=== PATIENT | female | born 1930 | race Caucasian/White ===

== ENCOUNTER 2019-02-13 14:44 | Inpatient (IN) | payer OTHER, MEDICARE ==
[~2019-02-13] VITALS: Ht 162.6 cm; Wt 80.7 kg
[2019-02-13] MEDS ORDERED: FEE PK DOSING 1 MIN EA MC ONE (14:47)
--- NOTE | 2019-02-13 14:48 | NUR ---
PATIENT [id number] FROM PMD, WITH REPORT OF NEAR SYNCOPAL EPISODE. REPORTED TO BE HYPOTENSIVE FEED MANAGEMENT ADVISOR. BP TAKEN UPON PATIENT ARRIVAL WITH RESULT OF 161/74. PATIENT AWAKE, A/O X 2. NO ACUTE DISTRESS. PATIENT DENIES ANY PAIN OR DISCOMFORT. PATIENT CONNECTED TO MONITOR. FSBS TAKEN WITH RESULT OF 161. WILL CONTINUE TO MONITOR
--- NOTE | 2019-02-13 14:50 | NUR ---
PATIENT NOTED WITH BILATERAL NEPHROSTOMY TUBES, NO BLEEDING NOTED ON BOTH COLLECTING BAGS.
--- NOTE | 2019-02-13 14:59 | NUR ---
DR BARTLETT AT BEDSIDE
--- NOTE | 2019-02-13 15:00 | NUR ---
JEVON SANDOVAL/DIRECTIVE GRAY AT BEDSIDE. VERBALIZED THAT PATIENT HAS A DNR. DR BARTLETT SPOKE WITH PATIENT AND PATIENT VERBALIZED TO STAY DNR. LORI ESCOTO VERBALIZED THAT PAPERWORKS ARE AT DR GREGORY'S OFFICE
[2019-02-13] MEDS ORDERED: DILT-1 PO (15:15)
[2019-02-13] MEDS ORDERED: MULT-447 PO (15:15)
[2019-02-13] MEDS ORDERED: METO25TA20 PO (15:15)
[2019-02-13] MEDS ORDERED: TAMS-12 PO (15:15)
[2019-02-13] MEDS ORDERED: LEVO25TA9 PO (15:15)
[2019-02-13 15:30] LABS: BASOPHILS % (AUTO) 0.5 % (0.0-2.0); HEMATOCRIT 30 % (33-45); HEMOGLOBIN 9.3 g/dL (11.5-14.8); LYMPHOCYTES % (AUTO) 1.5 % (20.0-44.0); MEAN CORPUSCULAR HGB CONC 31 g/dl (31.0-36.0); MEAN CORPUSCULAR VOLUME 79 fL (82-100); MONOCYTES % (AUTO) 3.3 % (2.0-12.0); NEUTROPHILS % (AUTO) 94.7 % (43.0-81.0); PLATELET COUNT (AUTO) 606 /CMM (150-450); RED BLOOD CELL COUNT(AUTO) 3.84 MIL/uL (4.0-5.2)
[2019-02-13] MEDS ORDERED: IV NS 0.9% 500 ML BAG IV ONE (15:30)
--- NOTE | 2019-02-13 15:30 | NUR ---
URINE COLLECTED FROM EACH NEPHROSTOMY BAG AND LABELLED SEPARATELY, SENT TO LAB
[2019-02-13 15:31] LABS: BASOPHILS # (AUTO) 0.4 /CMM (0.0-0.2); LYMPHOCYTES # (AUTO) 1.3 /CMM (0.8-4.8); MONOCYTES # (AUTO) 2.8 /CMM (0.1-1.30)
[2019-02-13 15:32] LABS: WHITE BLOOD COUNT (AUTO) 82.4 K/uL (4.3-11.0)
[2019-02-13 15:54] LABS: CARBON DIOXIDE 21 mmol/L (21-32); CHLORIDE 100 mmol/L (98-107); POTASSIUM 5.3 mmol/L (3.5-5.1); SODIUM SERUM 134 mmol/L (136-145)
[2019-02-13 15:55] LABS: CALCIUM, SERUM 8.3 mg/dL (8.5-10.1); CREATININE 3.5 mg/dL (0.6-1.3); GLUCOSE 169 mg/dL (74-106); UREA NITROGEN, BLOOD 45 mg/dL (7-18)
[2019-02-13 15:58] LABS: BILIRUBIN,DIRECT 0.1 mg/dL (0.0-0.2); BILIRUBIN,TOTAL 0.3 mg/dL (0.2-1.0)
[2019-02-13 15:59] LABS: ALANINE AMINOTRANSFERASE 14 U/L (12-78); ALBUMIN 1.9 g/dL (3.4-5.0); ALKALINE PHOSPHATASE 75 U/L (46-116); ASPARTATE AMINOTRANSFERASE 21 U/L (15-37); TOTAL PROTEIN, SERUM 6.9 g/dL (6.4-8.2)
--- NOTE | 2019-02-13 16:09 | NUR ---
CALLED , TRANSFERRED CALL TO
[2019-02-13 16:14] LABS: APPEARANCE,URINE Slightly Cloudy (CLEAR); BILIRUBIN,URINE Negative (NEGATIVE); BLOOD, URINE Moderate Ery/uL (NEGATIVE); COLOR,URINE Other (YELLOW); KETONES,URINE Negative (NEGATIVE); LEUKOCYTE ESTERASE ,URINE Small (NEGATIVE); NITRITE, URINE Positive (NEGATIVE); PH,URINE 8.5 (5.0-8.0); PROTEIN,URINE >=300 mg/dl (NEGATIVE); UGLUCOSE Negative (NEGATIVE); UROBILINOGEN,URINE 0.2 EU/dL (0.2)
[2019-02-13 16:23] LABS: RBC,URINE 21-50 /HPF (0-2); WBC,URINE TOO NUMEROUS TO COUN /HPF (0-3)
[2019-02-13 16:24] LABS: BACTERIA,URINE 3+ /HPF (None Seen); SQUAMOUS EPITHELIAL CELL,UR Few /HPF (None Seen); TRIPLE PHOSPHATE CRYSTAL,UR Few /HPF (None Seen)
[2019-02-13] MEDS ORDERED: IV NS 0.9% 1,000 ML BAG IV ONE (16:30)
[2019-02-13 16:37] LABS: APPEARANCE,URINE SLIGHTLY CLOUDY (CLEAR); COLOR,URINE YELLOW (YELLOW)
[2019-02-13 16:38] LABS: PH,URINE 8.5 (5.0-8.0); PROTEIN,URINE 2+ mg/dl (NEGATIVE)
[2019-02-13 16:39] LABS: BILIRUBIN,URINE NEGATIVE (NEGATIVE); BLOOD, URINE 1+ Ery/uL (NEGATIVE); KETONES,URINE NEGATIVE (NEGATIVE); LEUKOCYTE ESTERASE ,URINE 3+ (NEGATIVE); NITRITE, URINE NEGATIVE (NEGATIVE); UGLUCOSE NEGATIVE (NEGATIVE); UROBILINOGEN,URINE 0.2 EU/dL (0.2)
--- NOTE | 2019-02-13 16:44 | NUR ---
RECTAL TEMP 100.6. DR BARTLETT MADE AWARE
[2019-02-13 16:46] LABS: BAND % (MANUAL) 5 % (0.0-5.0); MONOCYTES % (MANUAL) 3 % (0-11.0); NEUTROPHILS % (MANUAL) 92 (42-76)
[2019-02-13 16:46] LABS: RBC,URINE 21-50 /HPF (0-2)
[2019-02-13 16:47] LABS: BACTERIA,URINE 4+ /HPF (None Seen); SQUAMOUS EPITHELIAL CELL,UR Few /HPF (None Seen); TRIPLE PHOSPHATE CRYSTAL,UR Few /HPF (None Seen); WBC,URINE 21-50 /HPF (0-3)
[2019-02-13 16:51] LABS: URINE AMORPHOUS PHOSPHATES Few /HPF (None Seen)
[2019-02-13] MEDS ORDERED: LEVOFLOXACIN 750 MG /D5W 150ML 150 ML IV ONE ×2 (16:59→17:00)
[2019-02-13] MEDS ORDERED: AZTREONAM 1 G in IV NS 0.9% 100 ML IV ONE (17:00)
[2019-02-13] MEDS ORDERED: ACETAMINOPHEN ES 500 MG TABLET PO ONE (17:30)
[2019-02-13] MEDS ORDERED: MEROPENEM 1 G in IV NS 0.9% 100 ML IV SCH (17:30)
[2019-02-13] MEDS ORDERED: ACETAMINOPHEN ES 500 MG TABLET ONE (17:38)
--- NOTE | 2019-02-13 17:39 | NUR ---
TELE 119-1
[2019-02-13] MEDS ORDERED: VANCOMYCIN 1 GM in IV D5W 250 ML IV SCH (18:00)
--- NOTE | 2019-02-13 18:00 | NUR ---
RT Pt is awake and alert, pt is refusing ABG. No SOB or respiratory distress noted.
--- NOTE | 2019-02-13 18:15 | NUR ---
REPORT GIVEN TO INGRID CUENCA FOR BOOGIE
[2019-02-13 18:18] LABS: ALANINE AMINOTRANSFERASE 15 U/L (12-78); ALBUMIN 1.9 g/dL (3.4-5.0); ALKALINE PHOSPHATASE 76 U/L (46-116); ASPARTATE AMINOTRANSFERASE 29 U/L (15-37); BILIRUBIN,DIRECT 0.1 mg/dL (0.0-0.2); BILIRUBIN,TOTAL 0.4 mg/dL (0.2-1.0); CALCIUM, SERUM 8.5 mg/dL (8.5-10.1); CARBON DIOXIDE 21 mmol/L (21-32); CHLORIDE 100 mmol/L (98-107); CREATININE 3.6 mg/dL (0.6-1.3); GLUCOSE 164 mg/dL (74-106); POTASSIUM 5.6 mmol/L (3.5-5.1); SODIUM SERUM 134 mmol/L (136-145); TOTAL PROTEIN, SERUM 6.9 g/dL (6.4-8.2); UREA NITROGEN, BLOOD 47 mg/dL (7-18)
--- NOTE | 2019-02-13 18:28 | NUR ---
PATIENT TAKEN TO ROOM 119- BED 1 FOR INGRID RN TO CONTINUE CARE.
--- NOTE | 2019-02-13 18:30 | NUR ---
FILLER SIFTER MACHINEPHARMACY OPERATIONS MANAGER NOTES PT ADMISSION REPORT GIVEN BY BALAJI IN ER.RECEIVED PT FROM ER BY ISHAN WITH FAMILY AT BEDSIDE.ALERT/ORIENTED X4 WITH ANXIETY BEHAVIOR.ON TELE HR IS 80 WITH NSR.ON ROOM AIR,TOLERATING WELL.NO SOB AND ACUTE DISTRESS NOTED.VITAL SIGNS CHECKED AND RECORDED.PT IS CLEAN AND DRY.IV LINE IS ON RIGHT HAND G18 AND LEFT AC G20,SL.SITE IS CLEAN,DRY AND INTACT.NO INFILTRATION NOTED.BED IS IN LOW POSITION AND LOCKED.CALL LIGHT IS WITHIN REACH.WILL CONTINUE TO MONITOR THE PT CLOSELY.
[2019-02-13 18:57] VITALS: BP 74/52
--- NOTE | 2019-02-13 19:05 | NUR ---
RETIREMENT PLAN COUNSELOR CLOSING NOTES PT IS LYING ON BED,ALERT/ORIENTED X4.ON ROOM AIR,TOLERATING WELL.NO SOB AND ACUTE DISTRESS NOTED.RESPIRATION IS EVEN AND NONLABORED.NO SIGNIFICANT CHANGES NOTED IN THE SHIFT.ENDORSED TO PROFESSOR OF THEATER RN FOR BOOGIE.
[2019-02-13] MEDS: IV NS 0.9% 1,000 ML BAG IV ONE ×2 (19:10→19:36)
[2019-02-13] MEDS: IV NS 0.9% 1,000 ML IV PRN (19:16)
[2019-02-13 20:00] VITALS: BP 95/43
--- NOTE | 2019-02-13 20:30 | NUR ---
DYE PADDER OPERATOR NOTE ADMITTED 88 YEARS OLD FEMALE PT FROM ER WITH THE DX OF ACUTE PYELONEPHRITIS WITH SEPSIS. A/O X 3, NO SOB, NO DISTRESS OR DISCOMFORT NOTED. DENIES PAIN. ON TELE SR 69. BILATERAL LOWER EXT WITH MINOR SWELLING. PT IS WITH BILATERAL NEPHROSTOMY TUBES AND DRAINING WELL. SKIN ASSESSMENT DONE, PICTURES TAKEN AND PLACE THEM IN THE CHART. LAC #20G INFUSING NS AT 100 ML/HR, NO S/S OF INFILTRATION NOTED. RT HAND #18 G INTACT AND PATENT. ALL NEEDS ATTENDED. PT IS HYPOTENSIVE. SIDE RAILS UP X 3 AND CALL LIGHT WITHIN REACH. CONTINUE TO MONITOR HER.
[2019-02-13] MEDS ORDERED: MEROPENEM 500 MG in IV NS 0.9% 50 ML IV SCH (21:00)
[2019-02-13 21:08] VITALS: BP 95/43
[2019-02-13] MEDS: MEROPENEM 500 MG in IV NS 0.9% 100 ML IV SCH (21:22)
--- NOTE | 2019-02-13 23:22 | NUR ---
MACHINE TANK OPERATOR NOTE PT IN BED ASLEEP, NO DISTRESS OR DISCOMFORT NOTED. ATB INFUSING WELL, NO S/S OF INFILTRATION NOTED. ENDORSED TO NURSE NAIK FOR CONTINUE TO CARE.
[2019-02-14] VITALS (74 sets, daily range): BP systolic 77–133; BP diastolic 30–80
--- NOTE | 2019-02-14 | NUR ---
TELE-1/EVALUATOR TRANSFER STUDENTS PT BP 68/41 TRIED AGAIN GOT READING 81/39. SPOKE WITH VEE VITAL ORDER TO TRANSFER TO ICU AND START LEVOPHED. WILL CONTINUE TO MONITOR PT.
--- NOTE | 2019-02-14 00:32 | NUR ---
TELE-1/PRODUCTION BOW MAKER PT TRANSFERRED TO ICU ROOM 261 TO START LEVOPHED. REPORT TO ISABELA CUENCA FOR CONT OF CARE.
[2019-02-14] MEDS ORDERED: NOREPINEPHRINE 4 MG/4 ML AMPUL IV ONE (00:39)
[2019-02-14] MEDS: NOREPINEPHRINE 8 MG in IV D5W 500 ML IV PRN ×2 (00:44→14:29)
--- NOTE | 2019-02-14 00:55 | NUR ---
UNIT REACTOR OPERATOR NOTES PATIENT STARTED ON LEVOPHED GTT, INFUSING TO RIGHT HAND #18 GAUGE. VEE DRONE PILOT NOTIFIED REGARDING INITIATION OF PRESSOR SUPPORT, ORDER OBTAINED FOR PICC INSERTION. PATIENT EDUCATED REGARDING PICC LINE INSERTION, ALL QUESTIONS ANSWERED. PATIENT AGREES/CONSENTS TO PICC INSERTION.
--- NOTE | 2019-02-14 01:49 | NUR ---
APPLIANCE ASSEMBLER NOTES - CODE STATUS EXISTING ORDER FOR CODE STATUS IS DNR. CLARIFIED WITH PATIENT, WHOM WISHES TO BE DNR/DNI IS OUTLINED IN HER POLST, COPY LOCATED IN CHART. VEE MANNING NOTIFIED REGARDING DNR/DNI CODE STATUS.
[2019-02-14 06:58] LABS: BASOPHILS # (AUTO) 0.6 /CMM (0.0-0.2); BASOPHILS % (AUTO) 0.9 % (0.0-2.0); HEMATOCRIT 28 % (33-45); HEMOGLOBIN 8.6 g/dL (11.5-14.8); LYMPHOCYTES # (AUTO) 1.4 /CMM (0.8-4.8); LYMPHOCYTES % (AUTO) 1.9 % (20.0-44.0); MEAN CORPUSCULAR HGB CONC 31 g/dl (31.0-36.0); MEAN CORPUSCULAR VOLUME 81 fL (82-100); MONOCYTES # (AUTO) 2.5 /CMM (0.1-1.30); MONOCYTES % (AUTO) 3.3 % (2.0-12.0); NEUTROPHILS # (AUTO) 69.8 /CMM (1.8-8.9); NEUTROPHILS % (AUTO) 93.9 % (43.0-81.0); RED BLOOD CELL COUNT(AUTO) 3.48 MIL/uL (4.0-5.2)
--- NOTE | 2019-02-14 07:00 | NUR ---
AUTO WHEEL ALIGNMENT SPECIALIST CLOSING NOTES PATIENT RESTING COMFORTABLY IN BED, DENIES ANY PAIN. CONTINUES ON LEVOPHED GTT, TITRATED TO 7MCG/MIN. AWAITING PICC INSERTION, IV SITE FREE FROM ANY S/S OF INFILTRATION OR PHLEBITIS
[2019-02-14 07:07] LABS: ALANINE AMINOTRANSFERASE 12 U/L (12-78); ALBUMIN 1.5 g/dL (3.4-5.0); ALKALINE PHOSPHATASE 98 U/L (46-116); ASPARTATE AMINOTRANSFERASE 20 U/L (15-37); BILIRUBIN,TOTAL 0.2 mg/dL (0.2-1.0); CALCIUM, SERUM 7.8 mg/dL (8.5-10.1); CARBON DIOXIDE 16 mmol/L (21-32); CHLORIDE 102 mmol/L (98-107); CREATININE 3.5 mg/dL (0.6-1.3); GLUCOSE 109 mg/dL (74-106); POTASSIUM 5.5 mmol/L (3.5-5.1); SODIUM SERUM 134 mmol/L (136-145); TOTAL PROTEIN, SERUM 6.4 g/dL (6.4-8.2); UREA NITROGEN, BLOOD 51 mg/dL (7-18)
[2019-02-14 07:53] LABS: WHITE BLOOD COUNT (AUTO) 74.4 K/uL (4.3-11.0)
[2019-02-14] MEDS: LEVOTHYROXINE SODIUM 25 MCG TABLET PO SCH (08:08)
[2019-02-14] MEDS: MEROPENEM 500 MG in IV NS 0.9% 100 ML IV SCH ×2 (08:08→20:38)
[2019-02-14] MEDS: PANTOPRAZOLE 40 MG VIAL IV SCH (08:08)
[2019-02-14] MEDS: Z GUARD REMEDY 2 OZ OINT TP SCH (08:08)
--- NOTE | 2019-02-14 08:15 | NUR ---
ICU/RN: KERRI Marinelli at bedside. Updated on pt status. Labs discussed.
[2019-02-14] MEDS: IV NS 0.9% 1,000 ML IV PRN ×2 (08:47→19:18)
[2019-02-14] MEDS ORDERED: SODIUM POLYSTYRENE SULFONATE 15 G/60 ML BOTTLE PO ONE (09:30)
--- NOTE | 2019-02-14 09:30 | NUR ---
ICU/RN: Dr Lee at bedside, updated on pt status. Labs and imaging reviewed, MD ordered R nephrostogram and kayexelate. Pt educated and in agreement with plan. Addendum: 02/14/19 at 1013 by MCKENNA WIN RN MD informed of leaking noted around R nephrostomy site.
[2019-02-14 09:41] LABS: PLATELET COUNT (AUTO) 566 /CMM (150-450)
[2019-02-14 10:10] LABS: LYMPHOCYTES % (MANUAL) 5 % (16-48); MONOCYTES % (MANUAL) 5 % (0-11.0); NEUTROPHILS % (MANUAL) 90 (42-76)
[2019-02-14] MEDS ORDERED: IOHEXOL 240MG/ML 50 ML IV ONE (13:01)
[2019-02-14] MEDS ORDERED: DOSING PER PHARMACY-AMIKACI IV XX PRN (14:00)
--- NOTE | 2019-02-14 14:05 | NUR ---
ICU/RN: Pt back from nephrogram done in radiology. Pt tolerated procedure well.
--- NOTE | 2019-02-14 14:15 | NUR ---
ICU/RN: Nicole, pt's DPOA at bedside. Presented copies of POLST and DPOA paperwork. Visitation limits requested by pt and DPOA. Listed, primer charger, nursing supervisor gas meter repair and security notified.
[2019-02-14 14:41] LABS: CALCIUM, SERUM 7.4 mg/dL (8.5-10.1); CARBON DIOXIDE 20 mmol/L (21-32); CHLORIDE 102 mmol/L (98-107); CREATININE 3.6 mg/dL (0.6-1.3); GLUCOSE 125 mg/dL (74-106); POTASSIUM 4.8 mmol/L (3.5-5.1); SODIUM SERUM 134 mmol/L (136-145); UREA NITROGEN, BLOOD 56 mg/dL (7-18)
[2019-02-14] MEDS ORDERED: FEE PK DOSING 1 MIN EA MC ONE (14:43)
[2019-02-14 14:47] LABS: URINE TOTAL PROTEIN 167.9 mg/dL (0-11.9)
[2019-02-14 15:04] LABS: APPEARANCE,URINE SL CLOUDY (CLEAR); BILIRUBIN,URINE NEGATIVE (NEGATIVE); BLOOD, URINE MODERATE Ery/uL (NEGATIVE); COLOR,URINE YELLOW (YELLOW); KETONES,URINE NEGATIVE (NEGATIVE); LEUKOCYTE ESTERASE ,URINE SMALL (NEGATIVE); NITRITE, URINE NEGATIVE (NEGATIVE); PH,URINE 5.5 (5.0-8.0); PROTEIN,URINE 100 mg/dl (NEGATIVE); UGLUCOSE NEGATIVE (NEGATIVE); UROBILINOGEN,URINE 0.2 EU/dL (0.2)
[2019-02-14 15:16] LABS: BACTERIA,URINE Moderate /HPF (None Seen); SQUAMOUS EPITHELIAL CELL,UR Few /HPF (None Seen); WBC,URINE 21-50 /HPF (0-3)
[2019-02-14] MEDS: AMIKACIN 350 MG in IV D5W 100 ML IV SCH (15:55)
[2019-02-14] MEDS: TAMSULOSIN 0.4 MG CAP.SR.24H PO SCH (16:11)
[2019-02-14 17:15] LABS: EOSINOPHIL,URINE None Seen
--- NOTE | 2019-02-14 19:00 | NUR ---
ICU/RN: Dr Andre lund; updated on pt status. DVT prophylaxis ordered.
[2019-02-14] MEDS ORDERED: ENOXAPARIN SODIUM 40 MG/0.4 ML DISP.SYRIN SQ SCH (19:30)
--- NOTE | 2019-02-14 19:30 | NUR ---
MEDICAL RECORDS CLERK INITIAL SHIFT NOTES RECEIVED PATIENT I BED, AWAKE, ALERT AND ORIENTED X4, ABLE TO VERBALIZE NEEDS. BREATHING EVEN AND NONLABORED, TOLERATING ROOM AIR WELL, SPO2 99% AT THIS TIME. BEDSIDE SENIOR ELECTRONICS DESIGN ENGINEER READS SINUS RHYTHM, HR 81 BPM. BENNY PICC PATENT AND INTACT, FLUSHED WITH NS, FREE FROM ANY S/S OF INFILTRATION OR PHLEBITIS. LEVOPHED GTT @ 3MCG/MIN. LEFT AND RIGHT SIDE NEPHROSTOMIES IN PLACE, DRAINING PALE, CLEAR, YELLOW URINE. PLAN OF CARE DISCUSSED WITH THE PATIENT, WHOM VERBALIZES UNDERSTANDING. CALL LIGHT AND TELEPHONE WITHIN EASY REACH, BED IN LOWEST AND LOCKED POSITION. WILL MONITOR CLOSELY
[2019-02-14] MEDS: HEPARIN SODIUM, PORCINE 5000 UNITS/1 ML VIAL SQ SCH (20:39)
--- NOTE | 2019-02-14 22:00 | NUR ---
COUNTY AGRICULTURAL AGENT NOTES PARTIAL BED BATH RENDERED DUE TO BM X1. PATIENT REQUEST TO REMAIN SUPINE IN SEMIFOLWERS POSITION, NO TURNING AT THIS TIME. EXPLAINED RISKS AND CONSEQUENCES, PATIENT VERBALIZES UNDERSTANDING BUT STILL WISHES TO REMAIN SUPINE. KEPT IN SUPINE POSITION PER PATIENT REQUEST
[2019-02-15] VITALS (46 sets, daily range): BP systolic 97–148; BP diastolic 37–78
[2019-02-15] MEDS: IV NS 0.9% 1,000 ML IV PRN ×2 (01:08→17:44)
[2019-02-15 05:07] LABS: BASOPHILS # (AUTO) 0.2 /CMM (0.0-0.2); BASOPHILS % (AUTO) 0.6 % (0.0-2.0); EOSINOPHILS % (AUTO) 0.4 % (0.0-6.0); HEMATOCRIT 23 % (33-45); HEMOGLOBIN 7.5 g/dL (11.5-14.8); LYMPHOCYTES # (AUTO) 1.3 /CMM (0.8-4.8); LYMPHOCYTES % (AUTO) 3.8 % (20.0-44.0); MEAN CORPUSCULAR HGB CONC 32 g/dl (31.0-36.0); MEAN CORPUSCULAR VOLUME 78 fL (82-100); MONOCYTES # (AUTO) 1.2 /CMM (0.1-1.30); MONOCYTES % (AUTO) 3.5 % (2.0-12.0); NEUTROPHILS # (AUTO) 31.3 /CMM (1.8-8.9); NEUTROPHILS % (AUTO) 91.7 % (43.0-81.0); PLATELET COUNT (AUTO) 439 /CMM (150-450); RED BLOOD CELL COUNT(AUTO) 2.99 MIL/uL (4.0-5.2)
[2019-02-15 05:21] LABS: ALANINE AMINOTRANSFERASE 11 U/L (12-78); ALKALINE PHOSPHATASE 91 U/L (46-116); ASPARTATE AMINOTRANSFERASE 14 U/L (15-37); BILIRUBIN,TOTAL 0.2 mg/dL (0.2-1.0); CALCIUM, SERUM 7.4 mg/dL (8.5-10.1); CARBON DIOXIDE 23 mmol/L (21-32); CHLORIDE 103 mmol/L (98-107); CREATININE 3.2 mg/dL (0.6-1.3); GLUCOSE 83 mg/dL (74-106); MAGNESIUM 1.5 mg/dL (1.8-2.4); POTASSIUM 4.7 mmol/L (3.5-5.1); SODIUM SERUM 134 mmol/L (136-145); TOTAL PROTEIN, SERUM 5.7 g/dL (6.4-8.2); UREA NITROGEN, BLOOD 55 mg/dL (7-18)
[2019-02-15 05:36] LABS: WHITE BLOOD COUNT (AUTO) 34.1 K/uL (4.3-11.0)
[2019-02-15 05:37] LABS: IRON, SERUM 9 ug/dl (50-175); TOTAL IRON BINDING CAPACITY 90 ug/dl (250-450)
[2019-02-15 05:40] LABS: LYMPHOCYTES % (MANUAL) 4 % (16-48); MONOCYTES % (MANUAL) 1 % (0-11.0); NEUTROPHILS % (MANUAL) 95 (42-76)
[2019-02-15 05:43] LABS: ALBUMIN 1.3 g/dL (3.4-5.0)
--- NOTE | 2019-02-15 06:00 | NUR ---
WHEEL PRESSER NOTES - NEPHROSTOMY OUTPUT L - 80ML R - 60ML
[2019-02-15 06:03] LABS: CREATINE KINASE, TOTAL 13 U/L (26-192); FERRITIN 1286 ng/mL (8-388); THYROID STIMULATING HORMONE 3.001 uIU/mL (0.358-3.74)
--- NOTE | 2019-02-15 06:56 | NUR ---
HEEL SCOURER CLOSING NOTES PATIENT RESTING IN BED, APPEARS COMFORTABLE, DENIES ANY PAIN OR DISCOMFORT. LEVOPHED GTT TITRATED OFF @ 0600. WILL ENDORSE THE PATIENT TO THE AM SHIFT NURSE FOR CONTINUITY OF CARE
--- NOTE | 2019-02-15 07:30 | NUR ---
RN NOTES RECEIVED PATIENT IN BED, ON HIGH RICHARD'S POSITIONED. A/A/0 X3, ABLE TO MAKE NEEDS KNOWN. ON ROOM AIR. BREATHING EVEN AND UNLABORED. SATING FINE. NO COMPLAINTS OF PAIN OF ANY KIND. SINUS RHYTHM ON THE MONITOR WITH HR ON THE 70'S. PICC LINE NOTED ON BENNY: IN PLACE AND PATENT, FLUSHING WELL. WITH NS INFUSING WELL AT 100CC/HR.LEVOPHED SINCE 600 PER REPORT. PATIENT ENCOURAGE TO VERBALIZE FEELINGS AND CONCERNS, CALL FOR HELP/ ASSISTANCE. SAFETY MEASURES OBSERVED AND MAINTAINED. CALL LIGHT PLACED WITHIN REACH. WILL CONTINUE TO MONITOR PATIENT AND ATTEND TO NEEDS
--- NOTE | 2019-02-15 08:20 | NUR ---
WOUND CARE CONSULT: PT ADAMANTLY REFUSED SKIN ASSESSMENT. DISCUSSED IMPORTANCE OF SKIN PROTECTION WITH PT AND NURSING STAFF. DEFER TO MD FOR NEPHROSTOMY TUBES. RECOMMENDATIONS MADE FOR SKIN PROTECTION. DISCUSSED WITH NURSING STAFF. PT ON PROVO ISOFLEX LOW AIRLOSS BED. WILL SEE PRN. MD IN AGREEMENT WITH PLAN OF CARE. CURRENT JERARDO SCORE IS 15.
[2019-02-15] MEDS: LEVOTHYROXINE SODIUM 25 MCG TABLET PO SCH (08:38)
[2019-02-15] MEDS: PANTOPRAZOLE 40 MG VIAL IV SCH (08:38)
[2019-02-15] MEDS: HEPARIN SODIUM, PORCINE 5000 UNITS/1 ML VIAL SQ SCH ×2 (08:43→20:36)
[2019-02-15] MEDS: MEROPENEM 500 MG in IV NS 0.9% 100 ML IV SCH ×2 (08:51→20:36)
[2019-02-15] MEDS: Z GUARD REMEDY 2 OZ OINT TP SCH (08:51)
--- NOTE | 2019-02-15 09:00 | NUR ---
RN NOTES DR. GREGORY INFORMED THAT PATIENT REFUSED TO GO TO CT SCAN
--- NOTE | 2019-02-15 10:00 | NUR ---
RN NOTES Joseph MCKEON NP AT BEDSIDE. INFORMED LATTER ABOUT NOTED LEAKING ON THE R NEPHROSTOMY SITE. PER MATTY HE WAS INFORMED YESTERDAY THAT THE THE LEFT NEPHROSTOMY WAS NOT WORKING AT THIS TIME BUT NOTHING WAS REPORTED ABOUT THE RIGHT. HE THEN ASKED THAT DR. XIE SHOULD BE INFORMED. DR. XIE INFORMED Addendum: 02/15/19 at 1247 by MATHEW OLMSTEAD RN ALSO INFORMED ABOUT PATIENT REFUSING TO GO TO CT SCAN
--- NOTE | 2019-02-15 10:24 | NUR ---
WOUND CARE CONSULT: PT PRESENTS WITH INCONTINENCE OF STOOL AND LEAKAGE OF RT NEPRHOSTOMY TUBE. RN TO DISCUSS WITH ICU STAFF NURSE. PT ALSO NOTED TO HAVE REDNESS TO ABDOMINAL FOLD AND INCONTINENCE ASSOCIATED SKIN DAMAGE TO GLUTEAL CREASE. RECOMMENDATIONS MADE FOR SKIN PROTECTION AND CARE. DISCUSSED WITH NURSING STAFF. DISCUSSED WITH PT AND NURSING STAFF THE IMPORTANCE OF OFFLOADING BONY PROMINENCES AND KEEPING SKIN CLEAN AND DRY. PT VERBALIZED UNDERSTANDING. [facility]. WILL SEE PRNPawan GAMBLE IN AGREEMENT WITH PLAN OF CARE. CURRENT JERARDO SCORE IS 15. Addendum: 02/15/19 at 1027 by JC BRADY WNDNU Amended: Links added.
[2019-02-15] MEDS: Magnesium 1GM/D5W 100ML PREMIX 100 ML IV SCH ×2 (12:13→14:02)
[2019-02-15] MEDS: ALBUMIN 25% 25 GM in PREMIX 1 EA IV SCH ×2 (14:03→17:44)
[2019-02-15] MEDS: SOD FERRIC GLUC 125 MG in IV NS 0.9% 100 ML IV SCH (16:12)
[2019-02-15] MEDS: TAMSULOSIN 0.4 MG CAP.SR.24H PO SCH (17:45)
--- NOTE | 2019-02-15 19:26 | NUR ---
RN NOTES ENDORSED FOR CONTINUITY OF CARE. NO ACUTE CHANGES WITHIN THE SHIFT. NOT ON ANY FORM OF DISTRESS. ALL NURSING NEEDS ATTENDED AND MET. SAFETY MEASURES IN PLACE AT ALL TIMES. CALL LIGHT WITHIN REACH.
--- NOTE | 2019-02-15 19:30 | NUR ---
FIELD MARKETING COORDINATOR NOTE PT A/O X4 AND ABLE TO VERBALIZE NEEDS. ON ROOM AIR. BREATHING REGULAR AND UNLABORED. DENIES PAIN OR DISCOMFORT AT THIS TIME. TELE- SR. IV BENNY PICC CLEAN, PATENT WITH FLUIDS INFUSING. BILATERAL NEPHROSTOMIES IN PLACE AND DRAINING. CALL LIGHT WITHIN REACH. BED ALARM ENABLED. WILL MONITOR.
--- NOTE | 2019-02-15 22:19 | NUR ---
COTTON STRIPPER NOTE GAVE REPORT TO ALICE CUENCA FOR CONTINUITY OF CARE. PT TRANSFERRED SAFELY TO TELE.
[2019-02-15] MEDS ORDERED: VANCOMYCIN 1 GM in IV D5W 250 ML IV SCH (22:30)
[2019-02-15 22:32] LABS: BASOPHILS # (AUTO) 0.2 /CMM (0.0-0.2); BASOPHILS % (AUTO) 0.9 % (0.0-2.0); EOSINOPHILS % (AUTO) 1.1 % (0.0-6.0); HEMATOCRIT 22 % (33-45); LYMPHOCYTES # (AUTO) 1.2 /CMM (0.8-4.8); LYMPHOCYTES % (AUTO) 5.9 % (20.0-44.0); MEAN CORPUSCULAR HGB CONC 32 g/dl (31.0-36.0); MEAN CORPUSCULAR VOLUME 78 fL (82-100); MONOCYTES # (AUTO) 0.8 /CMM (0.1-1.30); MONOCYTES % (AUTO) 3.7 % (2.0-12.0); NEUTROPHILS # (AUTO) 18.5 /CMM (1.8-8.9); NEUTROPHILS % (AUTO) 88.4 % (43.0-81.0); PLATELET COUNT (AUTO) 385 /CMM (150-450); RED BLOOD CELL COUNT(AUTO) 2.81 MIL/uL (4.0-5.2); WHITE BLOOD COUNT (AUTO) 20.9 K/uL (4.3-11.0)
[2019-02-15 22:39] LABS: HEMOGLOBIN 6.9 g/dL (11.5-14.8)
[2019-02-15 22:43] LABS: ALANINE AMINOTRANSFERASE 13 U/L (12-78); ALKALINE PHOSPHATASE 81 U/L (46-116); ASPARTATE AMINOTRANSFERASE 17 U/L (15-37); BILIRUBIN,TOTAL 0.2 mg/dL (0.2-1.0); CALCIUM, SERUM 7.4 mg/dL (8.5-10.1); CARBON DIOXIDE 21 mmol/L (21-32); CHLORIDE 104 mmol/L (98-107); CREATININE 3.7 mg/dL (0.6-1.3); GLUCOSE 110 mg/dL (74-106); POTASSIUM 5.1 mmol/L (3.5-5.1); SODIUM SERUM 133 mmol/L (136-145); UREA NITROGEN, BLOOD 59 mg/dL (7-18)
--- NOTE | 2019-02-15 22:58 | NUR ---
RN NOTE RECEIVED CALL FROM LAB (SPOKE TO BROCK)CRITICAL RESULT OF HEMOGLOBIN 6.9, CALLED DR LURDES PEREZ, NEW ORDER OF 1 UNIT OF PRBC GIVEN, ORDER WAS TRANSCRIBED AND READ BACK
--- NOTE | 2019-02-15 23:05 | NUR ---
RN NOTE PATIENT IS ALERT/ORIENTED X 4, REFUSED 1 UNIT OF PRBC INFUSION, EXPLAINED ALL RISKS AND BENEFITS, STILL REFUSED, NOTIFIED DR LURDES PEREZ, CHARGE NURSE IS AWARE
[2019-02-16] VITALS (9 sets, daily range): BP systolic 103–126; BP diastolic 55–77
[2019-02-16] MEDS: ALBUMIN 25% 25 GM in PREMIX 1 EA IV SCH ×2 (00:02→05:14)
--- NOTE | 2019-02-16 06:07 | NUR ---
RN NOTE PATIENT IS ALERT/ORIENTED X 4, REFUSED TO CHANGE DIAPER, OFFERED X2, CHARGE NURSE IS AWARE
[2019-02-16 06:54] LABS: BASOPHILS # (AUTO) 0.2 /CMM (0.0-0.2); BASOPHILS % (AUTO) 1.1 % (0.0-2.0); EOSINOPHILS % (AUTO) 1.6 % (0.0-6.0); HEMATOCRIT 21 % (33-45); LYMPHOCYTES % (AUTO) 6.5 % (20.0-44.0); MEAN CORPUSCULAR HGB CONC 32 g/dl (31.0-36.0); MEAN CORPUSCULAR VOLUME 78 fL (82-100); MONOCYTES # (AUTO) 0.7 /CMM (0.1-1.30); MONOCYTES % (AUTO) 4.5 % (2.0-12.0); NEUTROPHILS # (AUTO) 13.3 /CMM (1.8-8.9); NEUTROPHILS % (AUTO) 86.3 % (43.0-81.0); PLATELET COUNT (AUTO) 374 /CMM (150-450); RED BLOOD CELL COUNT(AUTO) 2.68 MIL/uL (4.0-5.2); WHITE BLOOD COUNT (AUTO) 15.4 K/uL (4.3-11.0)
[2019-02-16 07:17] LABS: HEMOGLOBIN 6.6 g/dL (11.5-14.8)
[2019-02-16 07:21] LABS: ALANINE AMINOTRANSFERASE 11 U/L (12-78); ALBUMIN 2.5 g/dL (3.4-5.0); ALKALINE PHOSPHATASE 65 U/L (46-116); ASPARTATE AMINOTRANSFERASE 15 U/L (15-37); BILIRUBIN,TOTAL 0.2 mg/dL (0.2-1.0); CALCIUM, SERUM 7.5 mg/dL (8.5-10.1); CARBON DIOXIDE 18 mmol/L (21-32); CHLORIDE 105 mmol/L (98-107); CREATININE 3.7 mg/dL (0.6-1.3); GLUCOSE 74 mg/dL (74-106); MAGNESIUM 2.1 mg/dL (1.8-2.4); POTASSIUM 5.1 mmol/L (3.5-5.1); SODIUM SERUM 136 mmol/L (136-145); TOTAL PROTEIN, SERUM 5.9 g/dL (6.4-8.2); UREA NITROGEN, BLOOD 57 mg/dL (7-18)
--- NOTE | 2019-02-16 08:00 | NUR ---
LICENSED BONDSMAN NOTES RECEIVED PT IN BED ALERT AND ORIENTED X3 ON TELEMONITOR SR, HR IS 87, PT HAS 2 NEPHROSTOMIES, A RIGHT AND LEFT SIDE. RIGHT NEPHROSTOMY HAS NO OUTPUT, LEFT NEPHROSTOMY HAS 100 ML OF YELLOW COLORED URINE. PT HAS LEFT AC, BENNY PICC LINE ON IV, NS FLUID 100 ML/H. RESTAURANT SUPERVISOR ALIA NOTIFIED HEMOGLOBIN 6.6, PT STILL REFUSING TO TRANSFUSE. BED AT LOWEST POSITION, PLAN OF CARE DISCUSSED WITH PT, CALL LIGHT WITHIN REACH, WILL CONTINUE TO MONITOR.
[2019-02-16 08:06] LABS: AFP, TUMOR MARKER 1.7 ng/mL (0.0-8.3)
[2019-02-16 08:43] LABS: EOSINOPHILS % (MANUAL) 1 % (0-4); LYMPHOCYTES % (MANUAL) 10 % (16-48); MONOCYTES % (MANUAL) 4 % (0-11.0); NEUTROPHILS % (MANUAL) 85 (42-76)
[2019-02-16] MEDS: MEROPENEM 500 MG in IV NS 0.9% 100 ML IV SCH ×2 (09:29→21:00)
[2019-02-16] MEDS: PANTOPRAZOLE 40 MG VIAL IV SCH (09:29)
[2019-02-16] MEDS: LEVOTHYROXINE SODIUM 25 MCG TABLET PO SCH (09:30)
[2019-02-16] MEDS: HEPARIN SODIUM, PORCINE 5000 UNITS/1 ML VIAL SQ SCH (09:40)
[2019-02-16] MEDS: Z GUARD REMEDY 2 OZ OINT TP SCH (09:43)
[2019-02-16] MEDS: IV NS 0.9% 1,000 ML IV PRN (09:49)
--- NOTE | 2019-02-16 10:44 | NUR ---
PATIENT STILL REFUSING CT CHEST. RN AWARE
[2019-02-16 11:06] LABS: *SPE A/G RATIO 0.5 (0.7-1.7); *SPE ALBUMIN 1.6 g/dL (2.9-4.4); *SPE ALPHA-1-GLOBULIN 0.5 g/dL (0.0-0.4); *SPE ALPHA-2-GLOBULIN 0.9 g/dL (0.4-1.0); *SPE BETA GLOBULIN 0.8 g/dL (0.7-1.3); *SPE GLOBULIN, TOTAL 3.4 g/dL (2.2-3.9); *SPE M-SPIKE Not Observed g/dL (Not Observed); *SPEGAMMA GLOBULIN 1.3 g/dL (0.4-1.8); PTH, INTACT 189 pg/mL (15-65)
--- NOTE | 2019-02-16 11:31 | NUR ---
CORN BREEDER NOTE ADOBE ARCHITECT DMITY AT BEDSIDE AWARE THAT HG6.6 K 5.1 NO NEW ORDER GIVEN AT THIS TIME ,STILL REFUSED TO DO CT ABDOMEN
--- NOTE | 2019-02-16 11:40 | NUR ---
LABOR RELATIONS WORKER NOTE MAN MAIL CARRIER AT BEDSIDE NOTIFIED THAT PATIENT STRANGELY REFUSED BLOOD TRANSFUSING
--- NOTE | 2019-02-16 13:24 | NUR ---
LABORER HOISTING NOTE STOOL FOR OB COLLECTED ORDERED
[2019-02-16 14:01] LABS: OCCULT BLOOD STOOL NEGATIVE (NEGATIVE)
[2019-02-16] MEDS: SOD FERRIC GLUC 125 MG in IV NS 0.9% 100 ML IV SCH (14:10)
[2019-02-16] MEDS: AMIKACIN 350 MG in IV D5W 100 ML IV SCH (15:25)
--- NOTE | 2019-02-16 15:36 | NUR ---
PERIOPERATIVE EDUCATOR NOTE SPOKE WITH BETHANY SUBSTANCE ABUSE CLINICIAN AWARE THAT BILATERAL UROSTOMY SITE LEAKING STATED WILL CONTACT WITH UROLOGIST NO NEW ORDER THIS TIME
[2019-02-16] MEDS: TAMSULOSIN 0.4 MG CAP.SR.24H PO SCH (16:20)
--- NOTE | 2019-02-16 18:41 | NUR ---
GRIEVANCE AND APPEALS COORDINATOR NOTE HAVING DINNER , ABLE TO EAT SELF. CONT ON IVF ORDERED ,KEEP CLEAN DRY , NOT IN DISTRESS
[2019-02-16] MEDS ORDERED: diphenhydrAMINE HCL 50 MG/ML VIAL IV ONE (19:00)
[2019-02-16] MEDS ORDERED: ACETAMINOPHEN 325 MG TABLET PO ONE (19:00)
--- NOTE | 2019-02-16 19:10 | NUR ---
CHANGE OF SHIFT REPORT Patient in bed, tolerating RA. Sinus rhythm in the Tele monitor. Low hemoglobin 6.6 Patient refused blood transfusion per report. Bilateral nephrostomy tube to gravity, patient strongly refused to be repositioned at this time, per patient she's comfortable right now and wants to sleep. Educated on skin precaution. Instructed to use call light for assistance.
--- NOTE | 2019-02-16 19:21 | NUR ---
SATELLITE TV INSTALLER NOTE DR GREGORY BARREL LOADER AND CLEANER AT BEDSIDE NOTIFIED THAT PATIENT REFUSING BLOOD TRANSFUSING, STSTED ITS NO BLOOD TRANSFUSING AT THIS TIME PER PATIENT REQUEST
--- NOTE | 2019-02-16 21:16 | NUR ---
BENADRYL/TYLENOL PRIOR BLOOD TRANSFUSION IV Benadryl, PO Tylenol x1 dose not given, patient refused blood transfusion.
[2019-02-16 23:09] LABS: BAND % (MANUAL) 5 % (0.0-5.0); LYMPHOCYTES % (MANUAL) 8 % (16-48); MONOCYTES % (MANUAL) 6 % (0-11.0); NEUTROPHILS % (MANUAL) 81 (42-76)
[2019-02-17] VITALS (8 sets, daily range): BP systolic 135–154; BP diastolic 66–93
[2019-02-17] MEDS: IV NS 0.9% 1,000 ML IV PRN ×2 (02:10→19:57)
--- NOTE | 2019-02-17 06:13 | NUR ---
END OF SHIFT REPORT Patient in bed, stable oxygen saturation on RA. Sinus rhythm in the Tele monitor. IVF infusing, IV abx as schedule, afebrile overnight. Bilateral Nephrostomy to gravity bag. Antonio Nephrostomy tube site still with minimal leaking, MD is aware per report. Awaits Urology consult. Hourly rounds, refused repositioning at times, education on skin precaution. Maintained safety.
[2019-02-17 07:20] LABS: BASOPHILS # (AUTO) 0.1 /CMM (0.0-0.2); BASOPHILS % (AUTO) 0.9 % (0.0-2.0); EOSINOPHILS % (AUTO) 1.7 % (0.0-6.0); HEMATOCRIT 24 % (33-45); HEMOGLOBIN 7.6 g/dL (11.5-14.8); LYMPHOCYTES # (AUTO) 1.3 /CMM (0.8-4.8); LYMPHOCYTES % (AUTO) 7.8 % (20.0-44.0); MEAN CORPUSCULAR HGB CONC 32 g/dl (31.0-36.0); MEAN CORPUSCULAR VOLUME 78 fL (82-100); MONOCYTES # (AUTO) 1.2 /CMM (0.1-1.30); MONOCYTES % (AUTO) 7.2 % (2.0-12.0); NEUTROPHILS # (AUTO) 13.3 /CMM (1.8-8.9); NEUTROPHILS % (AUTO) 82.4 % (43.0-81.0); PLATELET COUNT (AUTO) 421 /CMM (150-450); RED BLOOD CELL COUNT(AUTO) 3.03 MIL/uL (4.0-5.2); WHITE BLOOD COUNT (AUTO) 16.2 K/uL (4.3-11.0)
[2019-02-17 07:24] LABS: ALANINE AMINOTRANSFERASE 20 U/L (12-78); ALBUMIN 2.2 g/dL (3.4-5.0); ALKALINE PHOSPHATASE 66 U/L (46-116); ASPARTATE AMINOTRANSFERASE 21 U/L (15-37); BILIRUBIN,TOTAL 0.2 mg/dL (0.2-1.0); CALCIUM, SERUM 7.6 mg/dL (8.5-10.1); CARBON DIOXIDE 17 mmol/L (21-32); CHLORIDE 107 mmol/L (98-107); GLUCOSE 87 mg/dL (74-106); MAGNESIUM 1.9 mg/dL (1.8-2.4); PHOSPHORUS 5.1 mg/dL (2.5-4.9); POTASSIUM 5.3 mmol/L (3.5-5.1); SODIUM SERUM 137 mmol/L (136-145); TOTAL PROTEIN, SERUM 6.1 g/dL (6.4-8.2); UREA NITROGEN, BLOOD 58 mg/dL (7-18)
[2019-02-17] MEDS: MEROPENEM 500 MG in IV NS 0.9% 100 ML IV SCH (08:19)
[2019-02-17] MEDS: LEVOTHYROXINE SODIUM 25 MCG TABLET PO SCH (08:19)
[2019-02-17] MEDS: PANTOPRAZOLE 40 MG VIAL IV SCH (08:19)
[2019-02-17] MEDS: Z GUARD REMEDY 2 OZ OINT TP SCH (09:02)
--- NOTE | 2019-02-17 09:21 | NUR ---
PT REFUSING TO GO FOR CT ABDOMEN.
[2019-02-17] MEDS ORDERED: SODIUM POLYSTYRENE SULFONATE 15 G/60 ML BOTTLE PO ONE (10:30)
[2019-02-17] MEDS: SOD FERRIC GLUC 125 MG in IV NS 0.9% 100 ML IV SCH (14:38)
[2019-02-17] MEDS ORDERED: AMIKACIN 300 MG in IV D5W 100 ML IV SCH ×2 (16:27→18:00)
[2019-02-17] MEDS ORDERED: diphenhydrAMINE HCL 25 MG CAPSULE PO PRN (16:30)
[2019-02-17] MEDS ORDERED: FEE PK DOSING 1 MIN EA MC ONE (16:33)
[2019-02-17] MEDS: CEFTAZIDIME 1 G in IV D5W 50 ML IV SCH (16:48)
--- NOTE | 2019-02-17 16:52 | NUR ---
PT REFUSING FORTAZ MEDICATION STATES SHE DOES NOT WANT IT DUE TO HER ALLERGY REACTION. EXPLAINED THE BENEFITS AND PT STILL REFUSED MEDICATION.
[2019-02-17] MEDS ORDERED: AMIKACIN 500 MG in IV D5W 100 ML IV SCH (17:00)
[2019-02-17] MEDS ORDERED: CEFTAZIDIME 1 G in IV D5W 50 ML IV ONE (17:00)
[2019-02-17] MEDS: TAMSULOSIN 0.4 MG CAP.SR.24H PO SCH (17:44)
--- NOTE | 2019-02-17 18:48 | NUR ---
RN CLOSING NOTES PT SITTING IN BED WATCHING TELEVISION. PT DENIES SOB HAS SLIGHT DISCOMFORT IN ABDOMEN STATES SHE FEELS SHE NEEDS TO PASS GAS. PT IS A&OX4. PT IS SR-ST 110 ON TELE MONITOR. PT REFUSED ANTIBIOTIC DUE TO PAST ALLERGIC REACTIONS. NEPHROSTOMY TUBE DRAINING TO GRAVITY. RIGHT SIDE NEPHROSTOMY LEAKING. REINFORCED DRESSING MD AWARE. BED IS LOCKED AND IN LOWEST POSITION WITH CALL LIGHT IN REACH. WILL ENDORSE BOOGIE TO COFFEE MACHINE TECHNICIAN RN.
--- NOTE | 2019-02-17 19:00 | NUR ---
RN OPENING NOTES: PATIENT ALERT AND VERBALLY RESPONSIVE. NO SOB. NO C/O PAIN. ON ESTIMATOR AND DRAFTER SHOWING SINUS TACHY HR 102. BENNY PICC LINE INTACT, PATENT, AND FLUSHING WELL. RUNNING 100 MLS/HR. NO S/S OF ACTIVE BLEEDING AT THIS TIME. ALL NEEDS ANTICIPATED. BED LOCKED AND IN LOWEST POSITION. CALL LIGHT PLACED WITHIN REACH. WILL CONT. TO MONITOR.
[2019-02-18] VITALS: BP 151/84
[2019-02-18 04:00] VITALS: BP 158/76
[2019-02-18] MEDS: IV NS 0.9% 1,000 ML IV PRN (06:10)
--- NOTE | 2019-02-18 07:27 | NUR ---
RN CLOSING NOTES: PATIENT AWAKE AND VERBALLY RESPONSIVE. A&OX4. NO RESPIRATORY DISTRESS. NO C/O PAIN. ENDORSED TO AM SHIFT NURSE FOR CONTINUITY OF CARE.
--- NOTE | 2019-02-18 07:46 | NUR ---
RN OPENING NOTES PT IS AWAKE AND DENIES PAIN OR SOB AT PRESENT MOMENT. PT HAS IV LAC 20 GAUGE AND PICC LINE BENNY. WITH NS RUNNING AT 100 MLS/HR. PT IS SR ON TELE MONITOR. DISCUSSED PLAN OF CARE WITH PT AND SHE IS AGREEABLE TO PLAN. BED IS LOCKED AND IN LOWEST POSITION WITH HOB ELEVATED TO 40 DEGREES. WILL CONTINUE TO MONITOR.
[2019-02-18 08:00] VITALS: BP 130/68
[2019-02-18] MEDS: PANTOPRAZOLE 40 MG VIAL IV SCH (08:05)
[2019-02-18] MEDS: LEVOTHYROXINE SODIUM 25 MCG TABLET PO SCH (08:05)
[2019-02-18] MEDS: Z GUARD REMEDY 2 OZ OINT TP SCH (08:06)
[2019-02-18 11:44] LABS: BASOPHILS # (AUTO) 0.1 /CMM (0.0-0.2); BASOPHILS % (AUTO) 0.3 % (0.0-2.0); EOSINOPHILS % (AUTO) 1.4 % (0.0-6.0); HEMATOCRIT 24 % (33-45); HEMOGLOBIN 7.5 g/dL (11.5-14.8); LYMPHOCYTES # (AUTO) 1.6 /CMM (0.8-4.8); LYMPHOCYTES % (AUTO) 7.7 % (20.0-44.0); MEAN CORPUSCULAR HGB CONC 31 g/dl (31.0-36.0); MEAN CORPUSCULAR VOLUME 79 fL (82-100); MONOCYTES % (AUTO) 5.2 % (2.0-12.0); NEUTROPHILS # (AUTO) 17.2 /CMM (1.8-8.9); NEUTROPHILS % (AUTO) 85.4 % (43.0-81.0); PLATELET COUNT (AUTO) 374 /CMM (150-450); RED BLOOD CELL COUNT(AUTO) 3.08 MIL/uL (4.0-5.2); WHITE BLOOD COUNT (AUTO) 20.1 K/uL (4.3-11.0)
[2019-02-18 11:53] LABS: CALCIUM, SERUM 7.5 mg/dL (8.5-10.1); CARBON DIOXIDE 17 mmol/L (21-32); CHLORIDE 108 mmol/L (98-107); CREATININE 4.7 mg/dL (0.6-1.3); GLUCOSE 100 mg/dL (74-106); PHOSPHORUS 6.9 mg/dL (2.5-4.9); POTASSIUM 4.9 mmol/L (3.5-5.1); SODIUM SERUM 138 mmol/L (136-145); UREA NITROGEN, BLOOD 62 mg/dL (7-18)
[2019-02-18 13:06] LABS: BAND % (MANUAL) 1 % (0.0-5.0); EOSINOPHILS % (MANUAL) 1 % (0-4); LYMPHOCYTES % (MANUAL) 2 % (16-48); MONOCYTES % (MANUAL) 6 % (0-11.0); MYELOCYTES % 1 % (0-0); NEUTROPHILS % (MANUAL) 89 (42-76)
[2019-02-18] MEDS: SOD FERRIC GLUC 125 MG in IV NS 0.9% 100 ML IV SCH (14:25)
[2019-02-18 16:00] VITALS: BP 133/81
[2019-02-18] MEDS ORDERED: D5W IV SCH (16:00)
[2019-02-18] MEDS ORDERED: CEFTAZIDIME IV SCH (16:00)
[2019-02-18] MEDS: CEFTAZIDIME 1 G in IV D5W 50 ML IV SCH (16:53)
[2019-02-18] MEDS: TAMSULOSIN 0.4 MG CAP.SR.24H PO SCH (16:55)
--- NOTE | 2019-02-18 18:46 | NUR ---
RN CLOSING NOTES PT IS AWAKE AND DENIES PAIN OR SOB AT PRESENT MOMENT. PT HAS IV LAC 20 GAUGE AND PICC LINE BENNY. WITH NS RUNNING AT 100 MLS/HR. BED IS LOCKED AND IN LOWEST POSITION WITH HOB ELEVATED TO 40 DEGREES. WILL ENDORSE BOOGIE TO CLINICAL PARTNER RN.
[2019-02-19] VITALS: BP 128/173
[2019-02-19] MEDS: LEVOTHYROXINE SODIUM 25 MCG TABLET PO SCH (06:43)
--- NOTE | 2019-02-19 07:15 | NUR ---
Nurse Notes: received report from the night nurse Debra Ortega RN. Patient is resting in bed, IV is infusing at 100 cc per hour.
[2019-02-19 08:00] VITALS: BP_SYST 131; BP_SYST 149; BP_DIAS 63; BP_DIAS 87
[2019-02-19] MEDS: PANTOPRAZOLE 40 MG VIAL IV SCH (09:29)
[2019-02-19] MEDS: Z GUARD REMEDY 2 OZ OINT TP SCH (09:30)
[2019-02-19 10:27] LABS: CALCIUM, SERUM 7.5 mg/dL (8.5-10.1); CARBON DIOXIDE 16 mmol/L (21-32); CHLORIDE 109 mmol/L (98-107); CREATININE 4.9 mg/dL (0.6-1.3); GLUCOSE 110 mg/dL (74-106); POTASSIUM 4.9 mmol/L (3.5-5.1); SODIUM SERUM 140 mmol/L (136-145); UREA NITROGEN, BLOOD 63 mg/dL (7-18)
[2019-02-19 10:54] LABS: BASOPHILS # (AUTO) 0.2 /CMM (0.0-0.2); BASOPHILS % (AUTO) 0.7 % (0.0-2.0); EOSINOPHILS % (AUTO) 2.1 % (0.0-6.0); HEMATOCRIT 24 % (33-45); HEMOGLOBIN 7.7 g/dL (11.5-14.8); LYMPHOCYTES # (AUTO) 1.5 /CMM (0.8-4.8); LYMPHOCYTES % (AUTO) 6.7 % (20.0-44.0); MEAN CORPUSCULAR HGB CONC 32 g/dl (31.0-36.0); MEAN CORPUSCULAR VOLUME 78 fL (82-100); MONOCYTES # (AUTO) 1.4 /CMM (0.1-1.30); MONOCYTES % (AUTO) 6.1 % (2.0-12.0); NEUTROPHILS # (AUTO) 19.5 /CMM (1.8-8.9); NEUTROPHILS % (AUTO) 84.4 % (43.0-81.0); PLATELET COUNT (AUTO) 392 /CMM (150-450); WHITE BLOOD COUNT (AUTO) 23.1 K/uL (4.3-11.0)
[2019-02-19 11:41] LABS: BAND % (MANUAL) 1 % (0.0-5.0); EOSINOPHILS % (MANUAL) 1 % (0-4); LYMPHOCYTES % (MANUAL) 7 % (16-48); MONOCYTES % (MANUAL) 6 % (0-11.0); MYELOCYTES % 1 % (0-0); NEUTROPHILS % (MANUAL) 84 (42-76)
[2019-02-19] MEDS: SOD FERRIC GLUC 125 MG in IV NS 0.9% 100 ML IV SCH (14:30)
--- NOTE | 2019-02-19 14:35 | NUR ---
Nurse Notes: right nephrostomy not draining, left drained 80 cc, emptied at present time. Pain level is mostly of the right side of abdomen. gas pain and abdominal pain.
[2019-02-19] MEDS: ACETAMINOPHEN 325 MG TABLET PO PRN (15:55)
[2019-02-19 16:00] VITALS: BP 150/59
[2019-02-19] MEDS: TAMSULOSIN 0.4 MG CAP.SR.24H PO SCH (18:17)
[2019-02-19] MEDS: CEFTAZIDIME 1 G in IV D5W 50 ML IV SCH (18:17)
--- NOTE | 2019-02-19 19:30 | NUR ---
Nurse Notes: report to the night nurse Debra Ortega RN, patient is resting in bed, Tylenol 650 mg relieved her pain. feels better after positioned. IV is infusing at 100 cc per hour. In no respiratory distress.
--- NOTE | 2019-02-19 20:55 | NUR ---
1551 PAGED MD BAKED AND GRAPHITE INSPECTOR TO FOR PATIENT'S C/O SOB AND WHEEZING ON AUSCULTATION, AWAITING CALL BACK. PATIENT IS AWAKE AND VERBALLY RESPONSIVE. HOB KEPT ELEVATED FOR MAX OXYGENATION. O2 SATURATION AT 91% ON ROOM AIR. PLACED ON 2LPM VIA NC. NO DISTRESS NOTED.
--- NOTE | 2019-02-19 21:05 | NUR ---
2104 DR. CHATMAN CALLED BACK AND NOTIFIED OF PATIENT CHANGE OF CONDITION WITH ORDER FOR PRN BREATHING TREATMENT AND CXR IN AM. ORDERS NOTED AND CARRIED OUT. RT NOTIFIED OF NEW ORDER.
[2019-02-19] MEDS: ALBUTEROL FS 2.5 MG/3 ML VIAL.NEB NEB PRN (21:39)
[2019-02-20] VITALS: BP 140/60
[2019-02-20] MEDS: ALBUTEROL FS 2.5 MG/3 ML VIAL.NEB NEB PRN ×2 (05:25→07:24)
[2019-02-20] MEDS: LEVOTHYROXINE SODIUM 25 MCG TABLET PO SCH (06:57)
--- NOTE | 2019-02-20 07:20 | NUR ---
MS RN NOTES OPENING PATIENT IS IN BED SLEEPING AND ABUSABLE WHEN NAME CALLED. ON 2L NASAL CANNULA.BENNY PICC LINE PATENT RUNNING NS 100ML/H. NO DISCOMFORT OR PAIN NOTED AT THIS TIME. CALL LIGHT WITHIN REACH BED AT THE LOWEST POSITION AND LOCKED.
[2019-02-20 08:00] VITALS: BP 120/68
[2019-02-20] MEDS: PANTOPRAZOLE 40 MG VIAL IV SCH (09:08)
[2019-02-20] MEDS: Z GUARD REMEDY 2 OZ OINT TP SCH (09:09)
[2019-02-20 09:54] LABS: BASOPHILS # (AUTO) 0.2 /CMM (0.0-0.2); BASOPHILS % (AUTO) 0.9 % (0.0-2.0); EOSINOPHILS % (AUTO) 1.4 % (0.0-6.0); HEMATOCRIT 22 % (33-45); HEMOGLOBIN 7.1 g/dL (11.5-14.8); LYMPHOCYTES # (AUTO) 1.1 /CMM (0.8-4.8); LYMPHOCYTES % (AUTO) 5.2 % (20.0-44.0); MEAN CORPUSCULAR HGB CONC 32 g/dl (31.0-36.0); MEAN CORPUSCULAR VOLUME 79 fL (82-100); MONOCYTES # (AUTO) 1.2 /CMM (0.1-1.30); MONOCYTES % (AUTO) 5.5 % (2.0-12.0); NEUTROPHILS # (AUTO) 18.5 /CMM (1.8-8.9); PLATELET COUNT (AUTO) 370 /CMM (150-450); RED BLOOD CELL COUNT(AUTO) 2.84 MIL/uL (4.0-5.2); WHITE BLOOD COUNT (AUTO) 21.2 K/uL (4.3-11.0)
[2019-02-20 09:55] LABS: ALANINE AMINOTRANSFERASE 7 U/L (12-78); ALBUMIN 1.9 g/dL (3.4-5.0); ALKALINE PHOSPHATASE 75 U/L (46-116); ASPARTATE AMINOTRANSFERASE 12 U/L (15-37); BILIRUBIN,TOTAL 0.2 mg/dL (0.2-1.0); CALCIUM, SERUM 7.5 mg/dL (8.5-10.1); CARBON DIOXIDE 14 mmol/L (21-32); CHLORIDE 109 mmol/L (98-107); CREATININE 5.2 mg/dL (0.6-1.3); GLUCOSE 117 mg/dL (74-106); MAGNESIUM 1.5 mg/dL (1.8-2.4); POTASSIUM 4.7 mmol/L (3.5-5.1); SODIUM SERUM 140 mmol/L (136-145); TOTAL PROTEIN, SERUM 6.3 g/dL (6.4-8.2); UREA NITROGEN, BLOOD 62 mg/dL (7-18)
[2019-02-20 10:00] LABS: PHOSPHORUS 8.7 mg/dL (2.5-4.9)
--- NOTE | 2019-02-20 10:05 | NUR ---
MS RN NOTES (CRITICAL LAB VALUE) RECEIVED PHONE CALL FROM [facility] FOR CRITICAL LAB VALUE OF PHOSPHOROUS 8.7. GORE CUTTER MATTY IS AWARE OF THE CRITICAL LAB.
[2019-02-20 16:00] VITALS: BP 126/72
[2019-02-20] MEDS: CEFTAZIDIME 1 G in IV D5W 50 ML IV SCH (17:24)
[2019-02-20] MEDS: TAMSULOSIN 0.4 MG CAP.SR.24H PO SCH (17:40)
[2019-02-20 20:00] VITALS: BP 131/73
--- NOTE | 2019-02-20 20:05 | NUR ---
RN OPENING NOTES RECEIVED REPORT FROM ELZA CUENCA. PATIENT A/A/O X2-3, ABLE TO VERBALIZE NEEDS. BREATHING EVEN & UNLABORED, TOLERATING O2 @ 3LPM VIA NC. LEN ANY SOB OR DIFFICULTY BREATHING. RADIAL PULSES PRESENT. RIGHT UPPER ARM PICC LINE INTACT & PATENT W/ DRESSING CDI, SALINE LOCKED. BILATERAL NEPHROSTOMY TUBES IN PLACE W/ RIGHT SIDE DRAINING SEROUS FLUID. DENIES ANY PAIN OR DISCOMFORT @ THIS TIME. SAFETY MEASURES IN PLACE W/ SIDE RAILS UP & BED ALARM ON. CALL LIGHT PLACED WITHIN REACH & INSTRUCTED TO CALL FOR ASSISTANCE. HOB ELEVATED FOR ASPIRATION PRECAUTIONS. TURNED & REPOSITIONED FOR COMFORT. WILL CONTINUE TO MONITOR.
[2019-02-21 04:00] VITALS: BP 133/64
--- NOTE | 2019-02-21 07:20 | NUR ---
RN OPENING NOTES PT IS ASLEEP IN BED WITH EQUAL CHEST RISE AND FALL. NO SIGNS OF PAIN OR SOB AT PRESENT MOMENT. HOB ELEVATED. BED IS LOCKED AND IN LOWEST POSITION WITH CALL LIGHT IN REACH WILL CONTINUE TO MONITOR.
[2019-02-21 08:00] VITALS: BP 112/61
[2019-02-21] MEDS: PANTOPRAZOLE 40 MG VIAL IV SCH (08:17)
[2019-02-21] MEDS: LEVOTHYROXINE SODIUM 25 MCG TABLET PO SCH (08:17)
[2019-02-21] MEDS: Z GUARD REMEDY 2 OZ OINT TP SCH (10:08)
[2019-02-21 12:52] LABS: BASOPHILS # (AUTO) 0.2 /CMM (0.0-0.2); BASOPHILS % (AUTO) 0.9 % (0.0-2.0); EOSINOPHILS % (AUTO) 2.4 % (0.0-6.0); HEMATOCRIT 23 % (33-45); HEMOGLOBIN 7.1 g/dL (11.5-14.8); LYMPHOCYTES # (AUTO) 1.6 /CMM (0.8-4.8); LYMPHOCYTES % (AUTO) 6.4 % (20.0-44.0); MEAN CORPUSCULAR HGB CONC 30 g/dl (31.0-36.0); MEAN CORPUSCULAR VOLUME 80 fL (82-100); MONOCYTES # (AUTO) 1.1 /CMM (0.1-1.30); MONOCYTES % (AUTO) 4.6 % (2.0-12.0); NEUTROPHILS % (AUTO) 85.7 % (43.0-81.0); PLATELET COUNT (AUTO) 433 /CMM (150-450); RED BLOOD CELL COUNT(AUTO) 2.93 MIL/uL (4.0-5.2); WHITE BLOOD COUNT (AUTO) 24.5 K/uL (4.3-11.0)
[2019-02-21 13:13] LABS: ALANINE AMINOTRANSFERASE 7 U/L (12-78); ALBUMIN 1.7 g/dL (3.4-5.0); ALKALINE PHOSPHATASE 89 U/L (46-116); ASPARTATE AMINOTRANSFERASE 16 U/L (15-37); BILIRUBIN,TOTAL 0.2 mg/dL (0.2-1.0); CALCIUM, SERUM 7.5 mg/dL (8.5-10.1); CARBON DIOXIDE 13 mmol/L (21-32); CHLORIDE 109 mmol/L (98-107); GLUCOSE 86 mg/dL (74-106); MAGNESIUM 1.5 mg/dL (1.8-2.4); POTASSIUM 5.2 mmol/L (3.5-5.1); SODIUM SERUM 138 mmol/L (136-145); TOTAL PROTEIN, SERUM 6.3 g/dL (6.4-8.2); UREA NITROGEN, BLOOD 71 mg/dL (7-18)
[2019-02-21 13:22] LABS: PHOSPHORUS 9.2 mg/dL (2.5-4.9)
[2019-02-21 13:24] LABS: BAND % (MANUAL) 1 % (0.0-5.0); EOSINOPHILS % (MANUAL) 5 % (0-4); LYMPHOCYTES % (MANUAL) 9 % (16-48); MONOCYTES % (MANUAL) 3 % (0-11.0); NEUTROPHILS % (MANUAL) 82 (42-76)
[2019-02-21 16:00] VITALS: BP 127/63
[2019-02-21] MEDS: TAMSULOSIN 0.4 MG CAP.SR.24H PO SCH (16:45)
[2019-02-21] MEDS: CEFTAZIDIME 1 G in IV D5W 50 ML IV SCH (16:45)
--- NOTE | 2019-02-21 19:12 | NUR ---
RN CLOSING NOTES PT IS ASLEEP IN BED WITH EQUAL CHEST RISE AND FALL. NO SIGNS OF PAIN OR SOB AT PRESENT MOMENT. HOB ELEVATED. BED IS LOCKED AND IN LOWEST POSITION WITH CALL LIGHT IN REACH. DUPLEX DONE RECENTLY SHOWED POSITIVE BILATERALLY DVT. KERRI MYERS MADE AWARE. WILL ENDORSE BOOGIE TO GOVERNMENT AFFAIRS SPECIALIST RN.
[2019-02-21 20:00] VITALS: BP 114/61
--- NOTE | 2019-02-21 20:00 | NUR ---
MICROFABRICATION ENGINEER MANAGER NOTE PT IN BED AWAKE. A/O X 2, NO SOB, NO DISTRESS OR DISCOMFORT NOTED. DENIES PAIN. BENNY PICC LINE INTACT AND 2 LUMENS ARE PATENT. LINE WITH TKO NS. ON TELE SR HR 97. KEPT HER DRY AND CLEAN. Z GUARD APPLIED. REPOSITION HER FOR SKIN MANAGEMENT. SIDE RAILS UP X 2 AND CALL LIGHT WITHIN REACH. VSS. CONTINUE TO MONITOR HER.
--- NOTE | 2019-02-21 20:05 | NUR ---
DUMPER BULK SYSTEM NOTE BILATERAL NEPHROSTOMY TUBES INTACT AND PATENT DRAINING WELL, YELLOWISH COLOR FLUIDS.
--- NOTE | 2019-02-21 20:30 | NUR ---
ELECTROMECHANICAL EQUIPMENT TESTER NOTE WARM COMPRESS APPLIED ON BILATERAL LOWER EXT'S AND KEPT LEGS ELEVATED.
[2019-02-22] VITALS (7 sets, daily range): BP systolic 81–160; BP diastolic 36–82
[2019-02-22] MEDS: ACETAMINOPHEN 325 MG TABLET PO PRN (05:18)
--- NOTE | 2019-02-22 05:20 | NUR ---
CONSTRUCTION REPRESENTATIVE NOTE PT C/O MINOR PAIN IN BILATERAL LEGS 07/03, TYELNOL 650 MG PO GIVEN. ALSO PER PT'S REQUEST APPLIED WARM BLANKETS ON THE LEGS.
--- NOTE | 2019-02-22 06:16 | NUR ---
PATHOLOGY LABORATORY AIDES TEACHER NOTE PT IN BED AWAKE. PAIN SUBSIDED 2/10, LT NEPHROSTOMY BAG HAS 90 ML OUTPUT. ALL NEEDS ATTENDED. ON TELE SR, SIDE RAILS UP X 2 AND CALL LIGHT WITHIN REACH. WILL ENDORSE TO DAY SHIFT FOR CONTINUE TO CARE.
[2019-02-22 06:32] LABS: BASOPHILS # (AUTO) 0.3 /CMM (0.0-0.2); BASOPHILS % (AUTO) 1.1 % (0.0-2.0); EOSINOPHILS % (AUTO) 1.7 % (0.0-6.0); HEMATOCRIT 22 % (33-45); LYMPHOCYTES # (AUTO) 1.6 /CMM (0.8-4.8); LYMPHOCYTES % (AUTO) 6.6 % (20.0-44.0); MEAN CORPUSCULAR HGB CONC 31 g/dl (31.0-36.0); MEAN CORPUSCULAR VOLUME 79 fL (82-100); MONOCYTES # (AUTO) 1.1 /CMM (0.1-1.30); MONOCYTES % (AUTO) 4.4 % (2.0-12.0); NEUTROPHILS # (AUTO) 21.3 /CMM (1.8-8.9); NEUTROPHILS % (AUTO) 86.2 % (43.0-81.0); PLATELET COUNT (AUTO) 436 /CMM (150-450); RED BLOOD CELL COUNT(AUTO) 2.78 MIL/uL (4.0-5.2); WHITE BLOOD COUNT (AUTO) 24.7 K/uL (4.3-11.0)
[2019-02-22 06:45] LABS: HEMOGLOBIN 6.8 g/dL (11.5-14.8)
--- NOTE | 2019-02-22 07:00 | NUR ---
RESTAURANT OPERATIONS MANAGER NOTE PLANS EXAMINER CALLED AND INFORMED ME HGB 6.8, WAITING FOR REST OF THE LABS, INFORMED DAY SHIFT NURSE ELZA TO FOLLOW UP WITH LABS TO .
[2019-02-22 07:18] LABS: CALCIUM, SERUM 7.4 mg/dL (8.5-10.1); CARBON DIOXIDE 14 mmol/L (21-32); CHLORIDE 107 mmol/L (98-107); CREATININE 6.3 mg/dL (0.6-1.3); GLUCOSE 76 mg/dL (74-106); MAGNESIUM 1.5 mg/dL (1.8-2.4); SODIUM SERUM 138 mmol/L (136-145); UREA NITROGEN, BLOOD 73 mg/dL (7-18)
[2019-02-22 07:28] LABS: PHOSPHORUS 9.3 mg/dL (2.5-4.9)
--- NOTE | 2019-02-22 07:33 | NUR ---
INTERNAL AUDIT SENIOR MANAGER NOTES OPENING RECEIVED PT IN BED SITTING A/O X4 ON 3 L NASAL CANNULA. NO SOB AND DISCOMFORT NOTED AT THIS TIME. PATIENT DENIES ANY PAIN. OBSERVED RIGHT ARM AND BILATERAL LOWER EXTREMITIES EDEMA. RECEIVED A CRITICAL LAB OF PHOSPHORUS FROM LAB JULIO. PT HAS HGB 6.8 AND MG 1.5. WILL INFORM THE MD. CALL LIGHT WITHIN REACH BED AT LOWEST POSITION LOCKED. PICC LINE 2 LUMENS PATENT AND FLUSHED WITH NS WELL.
[2019-02-22] MEDS: LEVOTHYROXINE SODIUM 25 MCG TABLET PO SCH (08:23)
[2019-02-22] MEDS: PANTOPRAZOLE 40 MG VIAL IV SCH (08:23)
[2019-02-22 08:44] LABS: BAND % (MANUAL) 3 % (0.0-5.0); EOSINOPHILS % (MANUAL) 1 % (0-4); LYMPHOCYTES % (MANUAL) 3 % (16-48); MONOCYTES % (MANUAL) 7 % (0-11.0); NEUTROPHILS % (MANUAL) 86 (42-76)
--- NOTE | 2019-02-22 08:55 | NUR ---
MILLING MACHINE OPERATOR NOTES INFORMED DR XIE AND KERRI MYERS ABOUT THE CRITICAL LAB VALUES OF PHOSPHOROUS 9.3 HGB 6.8 L AND MG 1.5 (DR HAMEED CASER UP BOTH AWARE). PATIENT REFUSED BLOOD TRANSFUSION BUT ACCEPTS HEMODIALYSIS.
[2019-02-22] MEDS: Z GUARD REMEDY 2 OZ OINT TP SCH ×2 (12:30→14:59)
--- NOTE | 2019-02-22 14:30 | NUR ---
HEMODIALYSIS CATHETER INSERTION Malt Loader: [facility] Erich Cody NP Patient has order to insert HD catheter. Informed consent is signed and in chart. Insertion site determined to be right femoral vein. Patient was prepped using sterile technique with chlorhexidine. Patient was covered with a sterile drape and i donned a sterile gown. The insertion site was anesthetized with 1% lidocaine. Needle inserted under ultrasound guidance. Guidewire inserted through needle and needle removed. Small stevie made at insertion site of approximately 2 mm. Dilator inserted over guidewire then removed. Catheter inserted fully over guidewire. Guidewire removed. Blood return at both ports. Caps placed on each port. Catheter secured with 2 sutures. Biopatch placed and covered with tegaderm. No s/s of complication. Tolerated well with minimal blood loss. Ebl 3ml.
[2019-02-22] MEDS: HEPARIN INFUSION/D5W 500 ML IV PRN (15:28)
--- NOTE | 2019-02-22 15:28 | NUR ---
TELEPHONE SOLICITOR NOTES (HEPARIN DRIP) VEE LUOIS NOTIFIED OF HEMOGLOBIN LEVEL 6.8. PER HER TO PROCEED WITH HEPARIN DRIP PER PROTOCOL STARTED HEPARIN DRIP AT 1550 UNIT/HR. [31ML/HR] WITH NO BOLUS ORDER INITIAL APTT 41.8. REPEAT APTT AT 2128 THEN ADJUST DRIP
--- NOTE | 2019-02-22 15:28 | NUR ---
CHARGE NOTES VEE MYERS NOTIFIED OF HEMOGLOBIN LEVEL 6.8. PER HER TO PROCEED WITH HEPARIN DRIP PER PROTOCOL STARTED HEPARIN DRIP AT 1550 UNIT/HR. [31ML/HR] INITIAL APTT 41.8. REPEAT APTT AT 2128 THEN ADJUST DRIP
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
[2019-02-22] MEDS: CEFTAZIDIME 1 G in IV D5W 50 ML IV SCH (18:27)
[2019-02-22] MEDS: TAMSULOSIN 0.4 MG CAP.SR.24H PO SCH (18:28)
--- NOTE | 2019-02-22 19:00 | NUR ---
METROPOLITAN EDITOR NOTES PATIENT IN BED A/OX4. NO SOB OR DISCOMFORT NOTED. PT STILL ON HEPARIN DRIP. ALL NEEDS ATTENDED. BED AT THE LOWEST POSITION LOCKED, CALL LIGHT WITHIN REACH. WILL ENDORSE TO FILTER WASHER NURSE FOR [place].
--- NOTE | 2019-02-22 19:32 | NUR ---
SUPERVISOR RIPRAP PLACING NOTES RECEIVED PT ON BED. A/O X 4. ON GOING HD, ON NASAL CANNULA 3LPM NO RESPIRATORY DISTRESS NOTED. IV ACCESS ON BENNY PICC WITH HEPARIN DRIP ON GOING AT 1550UNITS/HR.NEPHROSTOMY TUBE DRAINING YELLOW URINE. HEAD OF BED ELEVATED. BED ALARM ON. SIDE RAILS UP. BED IN LOW LOCKED POSITION. WILL MONITOR PT CLOSELY.
--- NOTE | 2019-02-22 21:33 | NUR ---
DEVOPS ARCHITECT NOTES ELASTIC ATTACHER ZIGZAG AT BEDSIDE.
--- NOTE | 2019-02-22 22:26 | NUR ---
BAKER APPRENTICE NOTES PTT OF 91.0, HOLDING HEPARIN DRIP FOR ONE HOUR AND ADJUST DRIP TO 1300UNITS/HR
[2019-02-23] VITALS (8 sets, daily range): BP systolic 110–134; BP diastolic 47–65
--- NOTE | 2019-02-23 00:19 | NUR ---
LONG WALL MINING MACHINE TENDER NOTES REPORT GIVEN TO RACHEAL CUENCA FOR CONTINUITY OF CARE
--- NOTE | 2019-02-23 00:20 | NUR ---
LABORER DRYING DEPARTMENT NOTE: RECEIVED REPORT FROM BUT[facility], PATIENT RESTING IN BED, NO ACUTE DISTRESS NOTED. PICC LINE TO BENNY IN PLACE. HEPARIN DRIP RUNNING AT 1300UNITS/HR, NO ACUTE BLEEDING NOTED. BED LOCKED AND IN LOWEST POSITION, CALL LIGHT IN REACH, WILL CONTINUE TO MONITOR.
[2019-02-23 04:39] LABS: BASOPHILS # (AUTO) 0.2 /CMM (0.0-0.2); BASOPHILS % (AUTO) 0.6 % (0.0-2.0); EOSINOPHILS % (AUTO) 2.4 % (0.0-6.0); LYMPHOCYTES # (AUTO) 1.4 /CMM (0.8-4.8); LYMPHOCYTES % (AUTO) 4.6 % (20.0-44.0); MEAN CORPUSCULAR HGB CONC 32 g/dl (31.0-36.0); MEAN CORPUSCULAR VOLUME 78 fL (82-100); MONOCYTES # (AUTO) 0.9 /CMM (0.1-1.30); MONOCYTES % (AUTO) 3.1 % (2.0-12.0); NEUTROPHILS # (AUTO) 26.5 /CMM (1.8-8.9); NEUTROPHILS % (AUTO) 89.3 % (43.0-81.0); PLATELET COUNT (AUTO) 407 /CMM (150-450); RED BLOOD CELL COUNT(AUTO) 2.57 MIL/uL (4.0-5.2); WHITE BLOOD COUNT (AUTO) 29.6 K/uL (4.3-11.0)
[2019-02-23 04:50] LABS: CALCIUM, SERUM 7.1 mg/dL (8.5-10.1); CARBON DIOXIDE 18 mmol/L (21-32); CHLORIDE 105 mmol/L (98-107); CREATININE 5.2 mg/dL (0.6-1.3); GLUCOSE 95 mg/dL (74-106); MAGNESIUM 1.4 mg/dL (1.8-2.4); PHOSPHORUS 7.6 mg/dL (2.5-4.9); POTASSIUM 4.3 mmol/L (3.5-5.1); SODIUM SERUM 136 mmol/L (136-145); UREA NITROGEN, BLOOD 58 mg/dL (7-18)
[2019-02-23 04:58] LABS: HEMATOCRIT 20 % (33-45)
[2019-02-23 04:59] LABS: HEMOGLOBIN 6.4 g/dL (11.5-14.8)
[2019-02-23 05:54] LABS: EOSINOPHILS % (MANUAL) 1 % (0-4); LYMPHOCYTES % (MANUAL) 3 % (16-48); MONOCYTES % (MANUAL) 3 % (0-11.0); NEUTROPHILS % (MANUAL) 93 (42-76)
--- NOTE | 2019-02-23 06:05 | NUR ---
AIRPLANE GASTANK LINER ASSEMBLER NOTE: PATIENT RESTING IN BED, NO ACUTE DISTRESS NOTED. BREATHING EVEN AND UNLABORED, NO SOB NOTED. PICC LINE TO BENNY IN PLACE. PATIENT PTT LEVEL RESULTED 152.2, HEPARIN DRIP HELD PER PROTOCOL. INFORMED PUGGER HELPER CHILO GAMBLE, TISSUE TECHNICIAN, AWAITING FURTHER ORDERS. NO ACTIVE BLEEDING NOTED. PATIENT HGB ALSO REPORTED THAT LOW AT 6.4, BUT PATIENT REFUSES BLOOD TRANSFUSING, INFORMED. BED LOCKED AND IN LOWEST POSITION, CALL LIGHT IN REACH. WILL ENDORSE TO DAY NURSE TO CONTINUE WITH PLAN OF CARE.
--- NOTE | 2019-02-23 07:15 | NUR ---
Nurse Notes: report from the night nurse Patrick CUENCA. Heparin was stopped at 0600, and restarted at present time at 1050 unit per hour.
--- NOTE | 2019-02-23 07:25 | NUR ---
FOUNDER AND CEO NOTE: RECEIVED ORDERS TO DECREASE HEPARIN BY 3 UNITS/KG/HR, TO START HEPARIN DRIP AT 1050UNITS/HR. PTT TO BE DRAWN AT 1315, ORDER NOTED AND CARRIED OUT. WILL ENDORSE TO DAY NURSE.
[2019-02-23] MEDS: LEVOTHYROXINE SODIUM 25 MCG TABLET PO SCH (10:56)
[2019-02-23] MEDS: PANTOPRAZOLE 40 MG VIAL IV SCH (10:57)
--- NOTE | 2019-02-23 12:00 | NUR ---
Nurse Notes: Nurse assisted LINING STRAP CLOSER to clean patient, patient had bowel movement, and was cleaned. right nephrostomy had not been draining, dressing needed to be changed. tube is lose, dressing was changed and the tube tape to the dressing to prevent pulling of nephrostomy tube. Right nephrostomy started draining drained 16 cc. Left nephrostomy drained 200 cc at present time. Skin area around right nephrostomy is peeling off, Upper back with dark discolorated skin. Thelma Davies was notified. Ordering wound care consult to check back.
[2019-02-23] MEDS: ACETYLCYSTEINE 10% SOLN 400 MG/4 ML VIAL NEB SCH ×3 (13:00→22:57)
[2019-02-23] MEDS: HEPARIN INFUSION/D5W 500 ML IV PRN (13:25)
--- NOTE | 2019-02-23 14:00 | NUR ---
Nurse Notes: FRANCISCO Tomlin phone number [phone] wants to be present when patient's daughter is at the bedside, so that right decisions of the patient's care is made. Other friends visit the patient at the bedside, one friend will send out checks for bills that needs to be paid, another friend visit and talk with the patient, and keep eye on patient house and yard. Daughter did not visit the patient.
--- NOTE | 2019-02-23 15:15 | NUR ---
Nurse Notes: PTT was 46.8, heparin remains the same rate. 1050 unit per hr
--- NOTE | 2019-02-23 15:41 | NUR ---
Nurse Notes: respiratory therapist will given respiratory therapy with [facility] at 1530. therapist is still to show up to give treatment.
--- NOTE | 2019-02-23 16:36 | NUR ---
Nurse Notes: Dr Clive Barnes was called, patient is refusing to sign consent Permacath, office was called, Dr Chew answer call for Dr Barnes, notified consent is not signed.
[2019-02-23] MEDS: TAMSULOSIN 0.4 MG CAP.SR.24H PO SCH (17:45)
[2019-02-23] MEDS: CEFTAZIDIME 1 G in IV D5W 50 ML IV SCH (18:19)
--- NOTE | 2019-02-23 20:00 | NUR ---
Nurse Notes: report given to the night nurse Ana Laura CUENCA, heparin continues at 1050 unit per hour. PTT resulted at 1500, was drawn at 1330. PTT was 46.8. Right nephrostomy is now draining after dressing was changed, and nephrostomy tube was taped. total right nephrostomy drained 36 cc and left drained total of 275 cc. Had dialysis this morning, 2000 cc was removed by dialysis nurse.
[2019-02-24] VITALS: BP 110/50
[2019-02-24 04:00] VITALS: BP 110/50
[2019-02-24 06:31] LABS: CALCIUM, SERUM 6.9 mg/dL (8.5-10.1); CARBON DIOXIDE 22 mmol/L (21-32); CHLORIDE 105 mmol/L (98-107); CREATININE 4.4 mg/dL (0.6-1.3); GLUCOSE 97 mg/dL (74-106); POTASSIUM 4.2 mmol/L (3.5-5.1); SODIUM SERUM 139 mmol/L (136-145); UREA NITROGEN, BLOOD 45 mg/dL (7-18)
[2019-02-24 07:02] LABS: BASOPHILS # (AUTO) 0.2 /CMM (0.0-0.2); BASOPHILS % (AUTO) 0.9 % (0.0-2.0); EOSINOPHILS % (AUTO) 1.8 % (0.0-6.0); LYMPHOCYTES # (AUTO) 1.4 /CMM (0.8-4.8); LYMPHOCYTES % (AUTO) 5.4 % (20.0-44.0); MEAN CORPUSCULAR HGB CONC 32 g/dl (31.0-36.0); MEAN CORPUSCULAR VOLUME 78 fL (82-100); MONOCYTES % (AUTO) 3.8 % (2.0-12.0); NEUTROPHILS # (AUTO) 22.3 /CMM (1.8-8.9); NEUTROPHILS % (AUTO) 88.1 % (43.0-81.0); PLATELET COUNT (AUTO) 366 /CMM (150-450); RED BLOOD CELL COUNT(AUTO) 2.45 MIL/uL (4.0-5.2); WHITE BLOOD COUNT (AUTO) 25.3 K/uL (4.3-11.0)
[2019-02-24 07:07] LABS: IRON, SERUM 14 ug/dl (50-175); TOTAL IRON BINDING CAPACITY 68 ug/dl (250-450)
[2019-02-24 07:11] LABS: FERRITIN 1823 ng/mL (8-388)
--- NOTE | 2019-02-24 07:20 | NUR ---
CHEMIST FOOD OPENING NOTE RECEIVED REPORT [facility] JASEN. PT AWAKE IN BED, ALERT AND ORIENTED X 4, ON NC 3L/MIN, SATURATING WELL, NO SIGNS OF RESPIRATORY DISTRESS NOTED, RESPIRATIONS EVEN AND UNLABORED. SINUS RHYTHM ON ELEMENTARY READING TUTOR. PT REFUSES TO BE TURNED AND REPOSITIONED EVERY 2 HOURS, EXPLAINED THE BENEFITS OF BEING TURNED AND REPOSITIONED WELL THE RISKS OF REFUSING. HEPARIN INFUSING AT 1050 UNIT PER HOUR. NO ACTIVE SIGNS OF BLEEDING NOTED. RIGHT AND LEFT NEPHROSTOMY TUBES IN PLACE, INTACT. PT CONTINUES TO REFUSE BLOOD TRANSFUSION AND PERM CATH PLACEMENT, REFUSES TO SIGN CONSENT. BED IN LOW POSITION, LOCKED, CALL LIGHT WITHIN REACH.
[2019-02-24] MEDS: ACETYLCYSTEINE 10% SOLN 400 MG/4 ML VIAL NEB SCH ×3 (07:35→23:03)
--- NOTE | 2019-02-24 07:40 | NUR ---
RECEIVED CALL FROM LAB WITH CRITICAL RESULT HGB 6.1 PTT 87.8 SPOKE WITH JASMINE
[2019-02-24 07:41] LABS: HEMATOCRIT 19 % (33-45); HEMOGLOBIN 6.1 g/dL (11.5-14.8)
--- NOTE | 2019-02-24 07:50 | NUR ---
NOTIFIED DR. XIE OF CRITICAL LAB RESULTS. NO NEW ORDERS AT THIS TIME- PT CONTINUES TO REFUSE CONSENT.
--- NOTE | 2019-02-24 07:55 | NUR ---
CALCULATED NEW DOSAGE FOR HEPARIN DRIP FOR 880 UNITS/HOUR. DOSAGE ADJUSTED ON IV PUMP. CHARGE NURSE NOTIFIED.
[2019-02-24 08:00] VITALS: BP 99/48
[2019-02-24] MEDS: LEVOTHYROXINE SODIUM 25 MCG TABLET PO SCH (08:07)
[2019-02-24] MEDS: Z GUARD REMEDY 2 OZ OINT TP SCH (09:00)
[2019-02-24 09:07] LABS: EOSINOPHILS % (MANUAL) 1 % (0-4); LYMPHOCYTES % (MANUAL) 7 % (16-48); MONOCYTES % (MANUAL) 8 % (0-11.0); NEUTROPHILS % (MANUAL) 84 (42-76)
[2019-02-24] MEDS: PANTOPRAZOLE 40 MG VIAL IV SCH (09:25)
--- NOTE | 2019-02-24 10:15 | NUR ---
PHARMACY LABORATORY TECHNICIAN NOTES RECEIVED REPORT FROM JOELLEN JACKSON IN [place].RECEIVED PT LYING ON BED.ALERT/ORIENTED X3.ON TELE HR IS 96 WITH SR.ON NC 3LPM O2 VIA NC CONTINUOUSLY,NO SOB AND ACUTE DISTRESS NOTED.B/L NEPHROSTOMY PRESENT NOTED WITH RIGHT ONE IS NOT WORKING AND ON RIGHT SIDE RED RASHES NOTED.IV LINE IS ON RIGHT UA PICC LINE WITH HEPARIN DRIP @880 UNIT/HR IS RUNNING AND RIGHT FEMORAL HD CATH PRESENT,SITE IS CLEAN,DRY AND INTACT.NO INFILTRATION NOTED.GIVEN THE REPORT PT REFUSED TO GIVE CONSENT FOR PERMCATH PLACEMENT AND BLOOD TRANSFUSION TODAY AND REFUSED TO TURN AND REPOSITION PT [id number] IS MAINTAINED AT ALL TIMES,CALL LIGHT IS WITHIN REACH.WILL CONTINUE TO MONITOR THE PT CLOSELY. WOUND NURSE ASSESSED THE SKIN AND ORDERED [employer] MATTRESS AND WOUND TREATMENT.
--- NOTE | 2019-02-24 10:29 | NUR ---
WOUND CARE CONSULT: PT PRESENTS WITH INCONTINENCE OF LOOSE STOOL, GENERALIZED EDEMA WITH WEEPING EDEMA AND SEVERE RED RASH TO BACK, REDNESS AROUND RT NEPHROSTOMY TUBE AND INCONTINENCE ASSOCIATED SKIN DAMAGE TO GLUTEAL CREASE. MSG LEFT FOR VEE MYERS N.P. FOR RASH ON BACK AND POSSIBLE LEAKAGE OF RT NEPHROSTOMY TUBE. SCANT DRAINAGE IN DRAINAGE BAG OF RT NEPHROSTOMY TUBE WITH SMALL AMOUNT IN LEFT NEPH. TUBE BAG. RECOMMENDATIONS MADE FOR SKIN CARE AND PROTECTION. DISCUSSED WITH NURSING STAFF. MATTRESS TO BE CHANGED. FIRST STEP LOW AIRLOSS MATTRESS ORDERED WELL LOTRISONE CREAM. WILL SEE PRN. MD IN AGREEMENT WITH PLAN OF CARE. Addendum: 02/24/19 at 1037 by JC BRADY WNDNU DEFER TO MD FOR NEPHROSTOMY TUBES.
--- NOTE | 2019-02-24 10:30 | NUR ---
DIVERSIONAL THERAPIST'S ASSISTANT NOTES PT STARTS WITH HEMODIALYSIS AT BEDSIDE.
[2019-02-24 12:00] VITALS: BP 93/55
[2019-02-24] MEDS: ALBUMIN 25% 25 GM in PREMIX 1 EA IV PRN (13:28)
--- NOTE | 2019-02-24 15:00 | NUR ---
DRILL DOCTOR NOTES CALLED THE [facility] TO DELIVER NEW HEPARIN INFUSION.
[2019-02-24] MEDS: HEPARIN INFUSION/D5W 500 ML IV PRN (15:55)
[2019-02-24 16:00] VITALS: BP 111/58
[2019-02-24] MEDS: CLOTRIMAZOLE/BETAMETASONE DIPROPIONATE 15 GM TUBE TP SCH ×2 (16:03→20:42)
[2019-02-24] MEDS: TAMSULOSIN 0.4 MG CAP.SR.24H PO SCH (16:57)
[2019-02-24] MEDS: CEFTAZIDIME 1 G in IV D5W 50 ML IV SCH (16:58)
--- NOTE | 2019-02-24 17:50 | NUR ---
FRAME RUNNER NOTES OFFERED THE PT TO COLLECT THE URINE SAMPLE FOR UA PER DR.SUJIE GREGORY,PT REFUSED.EXPLAINED THE RISK AND BENEFITS X3,STILL REFUSED.
--- NOTE | 2019-02-24 18:45 | NUR ---
SHIP LINER NOTES URINE IS COLLECTED AND SEND TO LAB.
--- NOTE | 2019-02-24 18:46 | NUR ---
COMBAT CONTROL MANAGER CLOSING NOTES PT IS LYING ON BED,ALERT/ORIENTED X3.B/L NEPHROSTOMY IS IN PLACE WITH RIGHT ONE IS NOT WORKING.IV LINE IS IN PLACE WITH IV HEPARIN IS RUNNING @880UNIT/HR ON RIGHT UPPER ARM.NO ACTIVE BLEEDING NOTED.ON NC 3LPM O2 CONTINUOUSLY.NO SOB AND ACUTE DISTRESS NOTED.WILL ENDORSE TO OCCUPATIONAL HEALTH NURSE SUPERVISOR RN FOR BOOGIE.
--- NOTE | 2019-02-24 19:30 | NUR ---
DATA ANALYTICS SPECIALIST NOTE RECEIVED PATIENT A/O X 3, WITH NC AND 3L OF O2 WITH A SAT OF 98%. PATIENT ON THE MONITOR IS SINUS RHYTHM. PATIENT HAS A BENNY PICC LINE WITH HEPARIN DRIP RUNNING AT 880. PATIENT ALSO HAS A RT FEMORAL HD CATH AND A LAC IV. ALL SAFETY PRECAUTIONS HAVE BEEN APPLIED WILL CONTINUE TO MONITOR PATIENT.
[2019-02-24 20:00] VITALS: BP 127/66
[2019-02-24 20:07] LABS: APPEARANCE,URINE CLOUDY (CLEAR); BILIRUBIN,URINE NEGATIVE (NEGATIVE); BLOOD, URINE MODERATE Ery/uL (NEGATIVE); COLOR,URINE YELLOW (YELLOW); KETONES,URINE NEGATIVE (NEGATIVE); LEUKOCYTE ESTERASE ,URINE MODERATE (NEGATIVE); NITRITE, URINE NEGATIVE (NEGATIVE); PH,URINE 6.5 (5.0-8.0); PROTEIN,URINE 100 mg/dl (NEGATIVE); UGLUCOSE NEGATIVE (NEGATIVE); UROBILINOGEN,URINE 0.2 EU/dL (0.2)
[2019-02-24 20:28] LABS: BACTERIA,URINE Moderate /HPF (None Seen); SQUAMOUS EPITHELIAL CELL,UR Few /HPF (None Seen); WBC,URINE TOO NUMEROUS TO COUN /HPF (0-3); YEAST,URINE Hyphal filaments /HPF (None Seen)
[2019-02-25] VITALS (8 sets, daily range): BP systolic 116–134; BP diastolic 54–67
--- NOTE | 2019-02-25 04:30 | NUR ---
FRAMING MILL OPERATOR HELPER NOTE ASKED PATIENT IS SHE WOULD ALLOW A BED BATH AND LINEN CHANGE AND PATIENT REFUSED.
[2019-02-25] MEDS: CLOTRIMAZOLE/BETAMETASONE DIPROPIONATE 15 GM TUBE TP SCH ×3 (05:00→20:49)
--- NOTE | 2019-02-25 05:09 | NUR ---
HYDROELECTRIC STATION OPERATOR NOTE ASKED PATIENT AGAIN WITH PRIVATE CHEF PRESENT IF SHE WOULD ALLOW US TO CHANGE HER SHEETS AND DIAPER AND PATIENT REFUSED.
[2019-02-25 07:20] LABS: CALCIUM, SERUM 7.2 mg/dL (8.5-10.1); CARBON DIOXIDE 23 mmol/L (21-32); CHLORIDE 104 mmol/L (98-107); CREATININE 4.1 mg/dL (0.6-1.3); GLUCOSE 118 mg/dL (74-106); MAGNESIUM 1.4 mg/dL (1.8-2.4); PHOSPHORUS 5.9 mg/dL (2.5-4.9); POTASSIUM 4.1 mmol/L (3.5-5.1); SODIUM SERUM 138 mmol/L (136-145); UREA NITROGEN, BLOOD 35 mg/dL (7-18)
--- NOTE | 2019-02-25 07:24 | NUR ---
GUMMING MACHINE OPERATOR NOTE PATIENT IN BED WITH NO SIGNS OF ANY DISTRESS. ALL SAFETY PRECAUTIONS APPLIED ENDORSED PATIENT TO MORNING NURSE
[2019-02-25 07:31] LABS: BASOPHILS # (AUTO) 0.1 /CMM (0.0-0.2); BASOPHILS % (AUTO) 0.3 % (0.0-2.0); EOSINOPHILS % (AUTO) 0.9 % (0.0-6.0); LYMPHOCYTES % (AUTO) 3.4 % (20.0-44.0); MEAN CORPUSCULAR HGB CONC 32 g/dl (31.0-36.0); MEAN CORPUSCULAR VOLUME 79 fL (82-100); MONOCYTES # (AUTO) 1.2 /CMM (0.1-1.30); MONOCYTES % (AUTO) 4.3 % (2.0-12.0); NEUTROPHILS # (AUTO) 25.7 /CMM (1.8-8.9); NEUTROPHILS % (AUTO) 91.1 % (43.0-81.0); PLATELET COUNT (AUTO) 314 /CMM (150-450); RED BLOOD CELL COUNT(AUTO) 2.37 MIL/uL (4.0-5.2); WHITE BLOOD COUNT (AUTO) 28.2 K/uL (4.3-11.0)
[2019-02-25 07:42] LABS: HEMATOCRIT 19 % (33-45); HEMOGLOBIN 5.9 g/dL (11.5-14.8)
--- NOTE | 2019-02-25 08:04 | NUR ---
CONTACTED KERRI MYERS ABOUT CRITICAL HGB 5.9 AND HCT 19. PT REFUSING BLOOD TRANSFUSION. PT IS AWAKE AND ALERT AT PRESENT TIME. NO NEW ORDERS GIVEN.
[2019-02-25] MEDS: ACETYLCYSTEINE 10% SOLN 400 MG/4 ML VIAL NEB SCH ×3 (08:07→23:27)
--- NOTE | 2019-02-25 08:20 | NUR ---
RN OPENING NOTES PT IS EATING BREAKFAST STATES SHE DOES NOT WANT BLOOD TRANSFUSION, SHE PREFERS TO HAVE IRON. PT DENIES ANY PAIN OR SOB AT PRESET TIME. PT HAS HEPARIN TRANSFUSING WILL CONTINUE TO MONITOR.
[2019-02-25] MEDS: LEVOTHYROXINE SODIUM 25 MCG TABLET PO SCH (08:39)
[2019-02-25] MEDS: PANTOPRAZOLE 40 MG VIAL IV SCH (08:39)
[2019-02-25 09:00] LABS: BAND % (MANUAL) 3 % (0.0-5.0); EOSINOPHILS % (MANUAL) 2 % (0-4); LYMPHOCYTES % (MANUAL) 2 % (16-48); METAMYELOCYTES % 1 % (0-0); MONOCYTES % (MANUAL) 2 % (0-11.0); NEUTROPHILS % (MANUAL) 90 (42-76)
[2019-02-25] MEDS: Z GUARD REMEDY 2 OZ OINT TP SCH (09:35)
[2019-02-25] MEDS ORDERED: MAGNESIUM OXIDE 400 MG TABLET PO ONE (11:30)
--- NOTE | 2019-02-25 12:45 | NUR ---
PT REFUSING TO BE TURNED AND STATES SHE JUST WANTS TO BE LEFT ALONE. PT MET WITH DR. JACKSON AND METAL FORGER'S ASSISTANT [place] AND [place] OPTIONS WERE PRESENTED TO PT AND PT STATED THAT SHE JUST WISHED TO BE LEFT ALONE. SHE DOES NOT WANT TO PARTAKE IN ANY TESTS TODAY.
[2019-02-25] MEDS: ALBUTEROL HALF STRENGTH 1.25 MG/3 ML VIAL.NEB NEB PRN (15:54)
[2019-02-25] MEDS: CEFTAZIDIME 1 G in IV D5W 50 ML IV SCH (16:36)
[2019-02-25] MEDS: TAMSULOSIN 0.4 MG CAP.SR.24H PO SCH (16:36)
--- NOTE | 2019-02-25 17:39 | NUR ---
PT FRIEND BERTA AT BEDSIDE CONVINCED PT TO SIGN BLOOD TRANSFUSION FORM AND IS AGREEABLE TO BLOOD TRANSFUSION. PT FRIEND NOT DPOA. PT SIGED BLOOD TRANSFUSION FORM AN INDUSTRIAL RELATIONS COUNSELOR [place] MADE AWARE.
--- NOTE | 2019-02-25 18:49 | NUR ---
RN CLOSING NOTES PT DENIES ANY PAIN OR SOB AT PRESENT MOMENT. PT IS AGREEING TO A BLOOD TRANSFUSION. PT IS ON HEPARIN. AWAITING TYPE AND SCREEN. PT IS A&OX4. PT DENIES PAIN OR SOB AT PRESENT MOMENT WILL ENDORSE BOOGIE TO SALVAGE MACHINE OPERATOR NURSE.
[2019-02-25] MEDS: HEPARIN INFUSION/D5W 500 ML IV PRN (19:02)
[2019-02-26] VITALS (7 sets, daily range): BP systolic 105–126; BP diastolic 46–78
[2019-02-26] MEDS: CLOTRIMAZOLE/BETAMETASONE DIPROPIONATE 15 GM TUBE TP SCH ×3 (04:48→21:00)
--- NOTE | 2019-02-26 06:48 | NUR ---
TELE-1/CANAL STRUCTURE OPERATOR PT REFUSING AM CARE AT THIS TIME. WILL ENDORSE TO MORNING SHIFT.
--- NOTE | 2019-02-26 07:15 | NUR ---
CT TECHNICIAN NOTES OPENING PATIENT IS A/OX4 AWAKE IN BED ON 3L O2 WITH 95% O2 SAT. NO DISCOMFORT OR SOB NOTED AND PT DENIES ANY PAIN. PATIENT IS ON HEPARIN DRIP, BLOOD DRAWN AND WAITING FOR THE RESULT. PT HAS BILATERAL PITTING EDEMA ON LOWER EXTREMITIES. BED AT THE LOWEST POSITION LOCKED AND CALL LIGHT WITHIN REACH.
[2019-02-26 07:27] LABS: BASOPHILS # (AUTO) 0.3 /CMM (0.0-0.2); BASOPHILS % (AUTO) 0.9 % (0.0-2.0); EOSINOPHILS % (AUTO) 0.9 % (0.0-6.0); HEMATOCRIT 25 % (33-45); HEMOGLOBIN 7.8 g/dL (11.5-14.8); LYMPHOCYTES # (AUTO) 1.2 /CMM (0.8-4.8); LYMPHOCYTES % (AUTO) 3.7 % (20.0-44.0); MEAN CORPUSCULAR HGB CONC 31 g/dl (31.0-36.0); MEAN CORPUSCULAR VOLUME 81 fL (82-100); MONOCYTES # (AUTO) 1.5 /CMM (0.1-1.30); MONOCYTES % (AUTO) 4.8 % (2.0-12.0); NEUTROPHILS # (AUTO) 28.6 /CMM (1.8-8.9); NEUTROPHILS % (AUTO) 89.7 % (43.0-81.0); PLATELET COUNT (AUTO) 318 /CMM (150-450); RED BLOOD CELL COUNT(AUTO) 3.06 MIL/uL (4.0-5.2)
[2019-02-26 07:42] LABS: WHITE BLOOD COUNT (AUTO) 31.9 K/uL (4.3-11.0)
--- NOTE | 2019-02-26 07:45 | NUR ---
WHALE TRAINER NOTES (CRITICAL LAB) RECEIVED A CALL FROM LUCINA VALLE FOR HIGH LEVEL OF WBC 31.9. INFORMED VEE MYERS ABOUT THE CRITICAL LAB RESULT. WILL CONTINUE TO FOLLOW UP.
[2019-02-26 07:47] LABS: BAND % (MANUAL) 4 % (0.0-5.0); LYMPHOCYTES % (MANUAL) 4 % (16-48); MONOCYTES % (MANUAL) 6 % (0-11.0); NEUTROPHILS % (MANUAL) 86 (42-76)
--- NOTE | 2019-02-26 08:06 | NUR ---
BENCH ASSEMBLER BATTERY NOTES PTT 52.7 NO CHANGE IN HEPARIN DRIP RATE. DOCUMENTED IN THE PT CHART.
[2019-02-26] MEDS: ACETYLCYSTEINE 10% SOLN 400 MG/4 ML VIAL NEB SCH ×3 (08:26→23:16)
[2019-02-26] MEDS: LEVOTHYROXINE SODIUM 25 MCG TABLET PO SCH (08:43)
[2019-02-26] MEDS: PANTOPRAZOLE 40 MG VIAL IV SCH (08:45)
[2019-02-26] MEDS: Z GUARD REMEDY 2 OZ OINT TP SCH (11:09)
--- NOTE | 2019-02-26 12:00 | NUR ---
BENCH CARPENTER NOTES PT IS HAVING DIALYSIS WITH DIALYSIS NURSE.
[2019-02-26] MEDS: ALBUMIN 25% 25 GM in PREMIX 1 EA IV PRN (14:20)
[2019-02-26] MEDS: CEFTAZIDIME 1 G in IV D5W 50 ML IV SCH (17:04)
[2019-02-26] MEDS: TAMSULOSIN 0.4 MG CAP.SR.24H PO SCH (17:06)
--- NOTE | 2019-02-26 19:30 | NUR ---
PLASTIC PRESS OPERATOR NOTES PATIENT IN BED RESTING COMFORTABLY, NO SOB OR PAIN NOTED AT THIS TIME. PT `S DAUGHTER VISITED HER IN THE MORNING AND PT WAS HAPPY AND COOPERATIVE TODAY. SHE ALLOWED TO BE CHANGED AND CLEANED ONCE. DRESSINGS CHANGED. PATIENT HAD RASH ALL OVER HER UPPER ABDOMEN , CHEST AND BILATERAL AXILIARY REGION. INFORMED KERRI MYERS AND SHE ORDERED Z GUARD FOR THE SKIN REDNESS. REQUESTED ZGUARD FROM PHARMACY AND ENDORSED TO ELECTRICAL ENGINEERING DIRECTOR NURSE. PT WILL HAVE HEMODIALYSIS CATHETER INSERTION SURGERY TOMORROW. PT NPO FR THE SURGERY PER KERRI MYERS ORDER, INFORMED ELECTRICAL ENGINEERING DIRECTOR NURSE TO OBTAIN CONSENT FOR PROCEDURE. CALL LIGHT WITHIN REACH AND BED LOCKED AT THE LOWEST POSITION.
--- NOTE | 2019-02-26 19:30 | NUR ---
[employer] FACTORY WORKER OPENING NOTES RECEIVED PATIENT IN BED AWAKE ALERT AND ORIENTEDX3, RESPIRATIONS AT THIS TIME REMAIN EVEN AND UNLABORED ON RA PATIENT STATES " IM OKAY RIGHT NOW I DONT NEED IT AT THIS TIME ", MADE AWARE OF POSSIBLE HD PLACEMENT IN AM AND NEED FOR CONSENTS PATIENT STATED " ID RATHER DO THAT IN MORNING." RIGHT UPPER ARM PICC LINE IN PLACE, DRESSING IS CLEAN, DRY AND INTACT, NO REDNESS, NO INFILTRATION PRESENT, CURRENTLY HAS HEPARIN RUNNING AT 880 UNITS/HR. NEPHROSTOMY SITES IN PLACE, ORIENTED TO STAFF AND CALL LIGHT AND KEPT WITHIN REACH, SAFETY PRECAUTIONS IN PLACE, LOW BED AND LOCKED DISCUSSED PLAN OF CARE , ALL NEEDS ATTENDED AT THIS TIME WILL CONTINUE TO MONITOR AND ATTEND TO NEEDS. Addendum: 02/27/19 at 0026 by MARLINE VELAZQUEZ RN ON TYPING POOL SUPERVISOR ST 103
--- NOTE | 2019-02-26 21:11 | NUR ---
agriculture intern notes unable to apply lotrisone cream as ordered, ointment not at bedside, not in cassette night locker checked not available at this time. will continue to monitor keep clean ans encourage repositioning.
[2019-02-26] MEDS: HEPARIN INFUSION/D5W 500 ML IV PRN (22:38)
--- NOTE | 2019-02-26 22:38 | NUR ---
CALCULATING MACHINE OPERATOR NOTES REPLACED HEPARIN BAG WITH ANOTHER RN WITNESS , NO NEED TO CHANGE RATE AT THIS TIME.
--- NOTE | 2019-02-26 23:38 | NUR ---
HHN TX given and pt started coughing, took off mask and does not want to do the tx, SPO2 98% found on Room air, will continue to monitor. Addendum: 02/26/19 at 2339 by QUINCY ISRAEL RT Amended: Links added.
[2019-02-27] VITALS: BP 115/59
[2019-02-27] MEDS: ACETYLCYSTEINE 10% SOLN 400 MG/4 ML VIAL NEB SCH ×3 (00:30→14:43)
[2019-02-27 04:11] VITALS: BP 113/57
[2019-02-27] MEDS: CLOTRIMAZOLE/BETAMETASONE DIPROPIONATE 15 GM TUBE TP SCH ×3 (04:17→23:17)
--- NOTE | 2019-02-27 04:17 | NUR ---
fashion intern notes unable to apply lotrisone cream as ordered, ointment not at bedside, not in cassette night locker checked not available at this time. will continue to monitor keep clean anD encourage repositioning. will f/up and endorse in am to obtain cream as ordered.
[2019-02-27 06:25] LABS: BASOPHILS # (AUTO) 0.3 /CMM (0.0-0.2); EOSINOPHILS % (AUTO) 2.1 % (0.0-6.0); HEMATOCRIT 24 % (33-45); HEMOGLOBIN 7.4 g/dL (11.5-14.8); LYMPHOCYTES # (AUTO) 1.4 /CMM (0.8-4.8); LYMPHOCYTES % (AUTO) 5.6 % (20.0-44.0); MEAN CORPUSCULAR HGB CONC 31 g/dl (31.0-36.0); MEAN CORPUSCULAR VOLUME 81 fL (82-100); MONOCYTES # (AUTO) 1.1 /CMM (0.1-1.30); MONOCYTES % (AUTO) 4.3 % (2.0-12.0); NEUTROPHILS # (AUTO) 22.1 /CMM (1.8-8.9); PLATELET COUNT (AUTO) 294 /CMM (150-450); RED BLOOD CELL COUNT(AUTO) 2.89 MIL/uL (4.0-5.2); WHITE BLOOD COUNT (AUTO) 25.4 K/uL (4.3-11.0)
[2019-02-27 06:37] LABS: CALCIUM, SERUM 7.6 mg/dL (8.5-10.1); CARBON DIOXIDE 27 mmol/L (21-32); CHLORIDE 105 mmol/L (98-107); CREATININE 3.1 mg/dL (0.6-1.3); GLUCOSE 91 mg/dL (74-106); MAGNESIUM 1.3 mg/dL (1.8-2.4); PHOSPHORUS 5.3 mg/dL (2.5-4.9); POTASSIUM 3.7 mmol/L (3.5-5.1); SODIUM SERUM 141 mmol/L (136-145); UREA NITROGEN, BLOOD 29 mg/dL (7-18)
--- NOTE | 2019-02-27 06:51 | NUR ---
HEALTH ADVOCATE NOTES APTT RESULTED 46.9 BASED ON HEPARIN DOSING ORDERS PROTOCOL NO CHANGE IS NEEDED AT THIS TIME. WILL ENDORSE TO NEXT SHIFT. HEPARIN RUNNING AT 880 UNITS/HR PREVIOUSLY RECOMMENDED.
--- NOTE | 2019-02-27 06:59 | NUR ---
DIRECTOR OF FAMILY SERVICE CENTER CLOSING NOTES PATIENT IN BED AWAKE ALERT AND ORIENTEDX3, RESPIRATIONS AT THIS TIME REMAIN EVEN AND UNLABORED ON 02 PATIENT STATES RIGHT UPPER ARM PICC LINE IN PLACE, HD CATH RIGHT FEMORAL C/D/I , NO REDNESS, NO INFILTRATION PRESENT, CURRENTLY HAS HEPARIN RUNNING AT 880 UNITS/HR NO CHANGE PER PROTOCOL. NEPHROSTOMY SITES IN PLACE, CALL LIGHT KEPT WITHIN REACH, SAFETY PRECAUTIONS IN PLACE, LOW BED AND LOCKED , ALL NEEDS ATTENDED AT THIS TIME WILL CONTINUE TO MONITOR AND ATTEND TO NEEDS.ON GERIATRIC ASSISTANT SR 89 WITH OCCASIONAL PVC NO CHANGES NOTED, OFFERED REPOSITIONING AND ENCOURAGED AT TIME REFUSIVE. REMAINS COMFORTABLE. WILL ENDORSE TO NEXT SHIFT. Addendum: 02/27/19 at 0722 by MARLINE VELAZQUEZ RN no bleeding noted throughout shift no adverse reactions to heparin drip right nephrostomy site 5cc output left nephrostomy site 50cc output
--- NOTE | 2019-02-27 07:35 | NUR ---
RN NOTE: RECEIVED A PHONE CALL FROM RENEE FROM SURGERY DEPT. AND ACCORDING TO THEM THE PATIENT WAS SCHEDULED FOR A HD CATHETER PLACEMENT TODAY WITH DR. MICHEL AT 1500. PER RENEE, PATIENT CAN BE NPO AFTER 0800, BUT WAS INFORMED THAT PATIENT WAS NPO SINCE MIDNIGHT, BUT PATIENT REFUSED TO SIGN THE CONSENT. AT 0730 TODAY, PATIENT WAS ASKED AGAIN ABOUT THE PROCEDURE AND ACCORDING TO HER SHE WOULD WANT THE PERMANENT HD CATHETER TO BE PLACE. PATIENT SIGNED THE INFORMED CONSENT AND HAD NO QUESTION REGARDING THE PROCEDURE. HEPARIN DRIP WAS HELD AT THIS TIME.
[2019-02-27 07:44] LABS: BAND % (MANUAL) 2 % (0.0-5.0); EOSINOPHILS % (MANUAL) 1 % (0-4); LYMPHOCYTES % (MANUAL) 5 % (16-48); MONOCYTES % (MANUAL) 1 % (0-11.0); NEUTROPHILS % (MANUAL) 91 (42-76)
[2019-02-27] MEDS: LEVOTHYROXINE SODIUM 25 MCG TABLET PO SCH (07:52)
[2019-02-27 08:00] VITALS: BP 113/64
[2019-02-27] MEDS: PANTOPRAZOLE 40 MG VIAL IV SCH (08:03)
[2019-02-27] MEDS: Z GUARD REMEDY 2 OZ OINT TP SCH (08:08)
[2019-02-27] MEDS ORDERED: IOHEXOL 240MG/ML 50 ML IV ONE (10:34)
[2019-02-27 12:00] VITALS: BP 129/72
[2019-02-27 16:00] VITALS: BP 133/71
[2019-02-27] MEDS: TAMSULOSIN 0.4 MG CAP.SR.24H PO SCH (17:07)
[2019-02-27] MEDS: CEFTAZIDIME 1 G in IV D5W 50 ML IV SCH (17:07)
--- NOTE | 2019-02-27 19:35 | NUR ---
RN NOTE: BEDSIDE REPORT WAS GIVEN TO PM SHIFT NURSE FOR CONTINUITY OF CARE. PATIENT REMAINED ON HEPARIN DRIP 880 UNIT/HR PER NON-ACS PROTOCOL. EMPHASIZED THAT PATIENT WILL HAVE A PERMACATH PROCEDURE BY TOMORROW AT [address] MICHEL. INFORMED CONSENT WAS SIGNED BY THE PATIENT AND WAS FILED ON THE PATIENT'S CHART.
--- NOTE | 2019-02-27 19:45 | NUR ---
RN OPENING NOTES RECEIVED REPORT FROM JYOTI RN. FOUND Pt AWAKE, RESTING IN BED, WATCHING TV. NO S/S OF ACUTE DISTRESS OR SOB NOTED. Pt IS A/OX3, VERBAL, ABLE TO MAKE NEEDS KNOWN. IV ACCESS ON BENNY PICC LINE; HEPARIN DRIP INFUSING @880UN/HR DUE TO +DVT ON BLE. R FEMORAL HD CATH. Pt HAS R & L NEPHROSTOMY TUBES. PER REPORT TO STOP HEPARIN DRIP @0000 & TO KEEP Pt NPO @MN DUE TO PERMANENT PERMACATH PLACEMENT SCHEDULED @0700 TOMORROW AM 02/28/19. SAFETY MEASURES IN PLACE. BED LOW, LOCKED, HOB ELEVATED, SIDE RAILS UP, CALL LIGHT AND BEDSIDE TABLE WITHIN REACH. BED ALARM ON. WILL CONTINUE TO MONITOR Pt's CONDITION AND SAFETY THROUGHOUT THE NIGHT.
[2019-02-27 20:00] VITALS: BP 119/55
[2019-02-28] VITALS (10 sets, daily range): BP systolic 93–121; BP diastolic 35–67
--- NOTE | 2019-02-28 | NUR ---
RN NOTES STOPPED HEPARIN DRIP PER DAYSHIFT REPORT. DUE TO Pt SCHEDULED FOR PERMACATH PLACEMENT ON 02/28/19 @0700.
[2019-02-28] MEDS: CLOTRIMAZOLE/BETAMETASONE DIPROPIONATE 15 GM TUBE TP SCH ×3 (04:29→21:19)
[2019-02-28] MEDS ORDERED: ANESTHESIA TRAY IN PYXIS 1 EA TRAY MC ONE (06:24)
[2019-02-28] MEDS ORDERED: LIDOCAINE HCL/PF 1% 30 ML SDV ONE (06:24)
[2019-02-28] MEDS ORDERED: HEPARIN SODIUM, PORCINE 1,000 UNIT/ML VIAL ONE (06:24)
--- NOTE | 2019-02-28 06:40 | NUR ---
RN NOTES Pt HAS LEFT FOR OR.
[2019-02-28] MEDS: ACETYLCYSTEINE 10% SOLN 400 MG/4 ML VIAL NEB SCH ×3 (07:26→23:42)
--- NOTE | 2019-02-28 07:35 | NUR ---
RN CLOSING NOTES NO SIGNIFICANT CHANGES IN Pt's CONDITION. Pt HAS LEFT TO OR FOR PERMACATH PROCEDURE. NO S/S OF ACUTE DISTRESS OR SOB NOTED DURING THE NIGHT. ALL NEEDS MET AND ATTENDED TO. SAFETY MEASURES IN PLACE. WILL ENDORSE TO DAYSHIFT RN FOR Pt's BOOGIE.
--- NOTE | 2019-02-28 08:30 | NUR ---
patient has arrived back to the floor- received orders to resume diet, heparin- xray has been completed- q2hr check on left femoral and vitals - will continue to monitor report and record
[2019-02-28] MEDS: PANTOPRAZOLE 40 MG VIAL IV SCH (08:54)
[2019-02-28] MEDS: Z GUARD REMEDY 2 OZ OINT TP SCH (11:11)
--- NOTE | 2019-02-28 12:00 | NUR ---
PATIENT RESTING IN ROOM - NO COMPLAINTS OF PAIN - NO ISSUES OR CONCERNS- RESTING IN BED- HEPARIN INFUSING - TOLERATING FOOD- SAFETY PRECAUTIONS IN PLACE- WILL RECEIVE DIALYSIS TODAY - WILL CONTINUE TO MONITOR REPORT AND RECORD
[2019-02-28] MEDS: LEVOTHYROXINE SODIUM 25 MCG TABLET PO SCH (12:22)
--- NOTE | 2019-02-28 15:48 | NUR ---
received critical lab of ptt 130.6- contacted MD in order to redraw- the patients PICC line was used after waiting 15 minutes- Roll Cutting Operator stated the patient was a hard draw- will recheck and wait for further instruction from
--- NOTE | 2019-02-28 16:00 | NUR ---
PATIENT RESTING IN ROOM -PATIENT HAS NO COMPLAINTS - HEPARIN ON HOLD FOR A PTT DRAW- md AWARE- SAFETY PRECAUTIONS IN PLACE - DIALYSIS REMOVED 1 LITER OF FLUID - WILL CONTINUE TO MONITOR REPORT AND RECORD -
[2019-02-28] MEDS: TAMSULOSIN 0.4 MG CAP.SR.24H PO SCH (16:56)
[2019-02-28] MEDS: CEFTAZIDIME 1 G in IV D5W 50 ML IV SCH (16:57)
--- NOTE | 2019-02-28 18:49 | NUR ---
MADE MD AWARE THAT PHLEBOTOMY HAS HAD A DIFFICULT TIME GETTING LABS FROM PATIENT- HAD TO USE THE PICC LINE IN WHICH JUANY WAS RECEIVING HEPARIN - D/T PROTOCOL HEP DRIP WITH PLACED ON HOLD AND MD ORDERED A DIFFERENT TIMED PTT- EDUCATED PATIENT AND LAB - AWAITING RESULTS TO CONTINUE WITH PROTOCOL - WILL CONTINUE TO MONITOR REPORT AND RECORD
--- NOTE | 2019-02-28 19:30 | NUR ---
MS RN NOTE PATIENT RECEIVED IN BED A/O X3. PER NURSING REPORT HEPARIN DRIP IS BEING HELD. CURRENTLY WAITING ON PENDING APTT RESULTS. PATIENT HAS NO S/S OF BLEEDING AT THIS TIME AND ALL EXTREMITIES ARE WARM AND DRY TO TOUCH. PATIENT DENIES PAIN IN EXTREMITIES AND DENIES DISCOMFORT. PATIENT HAS NO S/S OF OR CHEST PAIN. PATIENT DENIES SOB. PATIENT HAS BENNY PICC LINE PATENT AND INTACT NO S/S OF INFECTION. RN WILL CONTINUE TO MONITOR FOR CHANGES.
--- NOTE | 2019-02-28 23:00 | NUR ---
MS RN NOTE SPOKE TO KERRI BARRERA AND PHARMACY TO VERIFY DOSAGES FOR RESTARTING HEPARIN DRIP. BOTH CONFIRMED AND DRIP STARTED AT 1000 UNITS AN HOUR WITH 3400 UNIT BOLUS GIVEN PER PROTOCOL. RN WILL CONTINUE TO MONITOR FOR BLEEDING. APPT SCHEDULED FOR 0500 03/01/2019
[2019-02-28] MEDS ORDERED: HEPARIN SODIUM, PORCINE 5000 UNITS/1 ML VIAL IV ONE (23:30)
[2019-03-01] VITALS (18 sets, daily range): BP systolic 105–144; BP diastolic 35–86
--- NOTE | 2019-03-01 04:59 | NUR ---
MS RN NOTE OFFERED PATIENT BED BATH AND WOUND CARE, PATIENT REFUSED AT THIS TIME.
[2019-03-01] MEDS: CLOTRIMAZOLE/BETAMETASONE DIPROPIONATE 15 GM TUBE TP SCH ×3 (05:08→21:02)
[2019-03-01] MEDS: ACETAMINOPHEN 325 MG TABLET PO PRN (05:42)
[2019-03-01 06:26] LABS: BASOPHILS # (AUTO) 0.1 /CMM (0.0-0.2); BASOPHILS % (AUTO) 0.8 % (0.0-2.0); EOSINOPHILS % (AUTO) 2.7 % (0.0-6.0); HEMATOCRIT 22 % (33-45); LYMPHOCYTES # (AUTO) 1.3 /CMM (0.8-4.8); LYMPHOCYTES % (AUTO) 10.7 % (20.0-44.0); MEAN CORPUSCULAR HGB CONC 31 g/dl (31.0-36.0); MEAN CORPUSCULAR VOLUME 82 fL (82-100); MONOCYTES % (AUTO) 8.6 % (2.0-12.0); NEUTROPHILS # (AUTO) 9.4 /CMM (1.8-8.9); NEUTROPHILS % (AUTO) 77.2 % (43.0-81.0); PLATELET COUNT (AUTO) 259 /CMM (150-450); RED BLOOD CELL COUNT(AUTO) 2.67 MIL/uL (4.0-5.2); WHITE BLOOD COUNT (AUTO) 12.2 K/uL (4.3-11.0)
[2019-03-01] MEDS: HEPARIN INFUSION/D5W 500 ML IV PRN (06:27)
[2019-03-01 06:30] LABS: HEMOGLOBIN 6.8 g/dL (11.5-14.8)
[2019-03-01 06:42] LABS: CALCIUM, SERUM 7.2 mg/dL (8.5-10.1); CARBON DIOXIDE 26 mmol/L (21-32); CHLORIDE 105 mmol/L (98-107); CREATININE 2.9 mg/dL (0.6-1.3); GLUCOSE 84 mg/dL (74-106); PHOSPHORUS 4.8 mg/dL (2.5-4.9); POTASSIUM 3.8 mmol/L (3.5-5.1); SODIUM SERUM 140 mmol/L (136-145); UREA NITROGEN, BLOOD 32 mg/dL (7-18)
[2019-03-01 06:48] LABS: MAGNESIUM 1.2 mg/dL (1.8-2.4)
--- NOTE | 2019-03-01 07:26 | NUR ---
MS RN OPENING NOTE RECEIVED REPORT FROM [facility]. PT AWAKE IN BED, ALERT AND ORIENTED X 4, ON 02 VIA NC 3L/MIN, RESPIRATIONS EVEN AND UNLABORED, NO SIGNS OF RESPIRATORY DISTRESS NOTED. BILATERAL LEG EDEMA NOTED. BILATERAL NEPHROSTOMY TUBES INTACT. RIGHT UPPER ARM PICC INFUSING HEPARIN AT 1000 UNITS/HR. HGB 6.8, NO ACTIVE SIGNS OF BLEEDING NOTED. DR. BHUMIKA MCKEON NOTIFIED. BED IN LOW POSITION, LOCKED, CALL LIGHT WITHIN REACH. INTRODUCED SELF AND DISCUSSED PLAN OF CARE.
[2019-03-01] MEDS: LEVOTHYROXINE SODIUM 25 MCG TABLET PO SCH (07:33)
[2019-03-01] MEDS: ACETYLCYSTEINE 10% SOLN 400 MG/4 ML VIAL NEB SCH ×3 (07:35→23:30)
[2019-03-01 07:39] LABS: EOSINOPHILS % (MANUAL) 3 % (0-4); LYMPHOCYTES % (MANUAL) 4 % (16-48); MONOCYTES % (MANUAL) 7 % (0-11.0); NEUTROPHILS % (MANUAL) 86 (42-76)
[2019-03-01] MEDS: PANTOPRAZOLE 40 MG VIAL IV SCH (08:04)
--- NOTE | 2019-03-01 08:51 | NUR ---
PTT RESULT 49.9 PER HEPARIN DRIP PROTOCOL NO CHANGES NEEDED. CHARGE NURSE EILEEN NOTIFIED. HEPARIN DRIP CONTINUES TO INFUSE AT 1000UNITS/HOUR.
[2019-03-01] MEDS: Z GUARD REMEDY 2 OZ OINT TP SCH (10:00)
[2019-03-01] MEDS ORDERED: Magnesium 1GM/D5W 100ML PREMIX 1 G in PREMIX 1 EA IV SCH (10:30)
[2019-03-01] MEDS: Magnesium 1GM/D5W 100ML PREMIX 100 ML IV SCH ×2 (10:58→12:16)
--- NOTE | 2019-03-01 17:13 | NUR ---
PT REFUSES TO SIGN CONSENT FOR XR NEPHROLOGY TUBE PLACEMENT. STATES SHE WILL CONSIDER SIGNING IT AT A LATER TIME.
[2019-03-01] MEDS: TAMSULOSIN 0.4 MG CAP.SR.24H PO SCH (17:24)
--- NOTE | 2019-03-01 19:19 | NUR ---
MS RN CLOSING NOTE PT AWAKE IN BED, ALERT AND ORIENTED X 4, ON 02 VIA NC 3L/MIN, RESPIRATIONS EVEN AND UNLABORED, NO SIGNS OF RESPIRATORY DISTRESS NOTED. BILATERAL LEG EDEMA NOTED. BILATERAL NEPHROSTOMY TUBES INTACT. RIGHT NEPHROSTOMY NOT DRAINING, LEFT NEPHROSTOMY TUBE DRAINING CLOUDY SEROUS DRAINAGE. RIGHT UPPER ARM PICC INFUSING HEPARIN AT 1000 UNITS/HR. BED IN LOW POSITION, LOCKED, CALL LIGHT WITHIN REACH. ENDORSED TO [facility] SHIFT NURSE FOR BOOGIE.
--- NOTE | 2019-03-01 19:24 | NUR ---
PT REFUSED TO BE TURNED AND REPOSITIONED EVERY 2 HOURS THROUGHOUT SHIFT, ONLY ALLOWED TO BE TURNED AND REPOSITIONED IN THE BEGINNING AND END OF SHIFT. RISKS WERE EXPLAINED TO PT.
--- NOTE | 2019-03-01 19:27 | NUR ---
MS RN NOTE TRANSFUSION STARTED WILL DOCUMENT FOR REACTIONS. PATIENT V/S AT BASELINE.
--- NOTE | 2019-03-01 20:00 | NUR ---
MS RN NOTE SPOKE TO STOKER MECHANIC MAGNUSK. PER DAY SHIFT REPORT PATIENT NOTED TO HAVE 2 EPISODES OF LIGHT VAGINAL BLEEDING. PER STOKER MECHANIC TRETIAK CONTINUE WITH HEPARIN INFUSION MONITOR FOR BLEEDING AND RECHECK CBC 1 HOUR POST COMPLETION OF BLOOD TRANSFUSION.
[2019-03-02] VITALS (7 sets, daily range): BP systolic 106–142; BP diastolic 39–76
--- NOTE | 2019-03-02 01:30 | NUR ---
MS RN NOTE TRANSFUSION COMPLETED AND CBC ORDERED FOR 1 HOUR POST. NO INFUSION REACTION NOTED.
[2019-03-02 02:42] LABS: BASOPHILS # (AUTO) 0.1 /CMM (0.0-0.2); BASOPHILS % (AUTO) 0.8 % (0.0-2.0); EOSINOPHILS % (AUTO) 3.2 % (0.0-6.0); HEMATOCRIT 30 % (33-45); HEMOGLOBIN 9.4 g/dL (11.5-14.8); LYMPHOCYTES # (AUTO) 1.4 /CMM (0.8-4.8); LYMPHOCYTES % (AUTO) 12.7 % (20.0-44.0); MEAN CORPUSCULAR HGB CONC 32 g/dl (31.0-36.0); MEAN CORPUSCULAR VOLUME 80 fL (82-100); MONOCYTES # (AUTO) 0.9 /CMM (0.1-1.30); NEUTROPHILS # (AUTO) 8.6 /CMM (1.8-8.9); NEUTROPHILS % (AUTO) 75.3 % (43.0-81.0); PLATELET COUNT (AUTO) 255 /CMM (150-450); RED BLOOD CELL COUNT(AUTO) 3.68 MIL/uL (4.0-5.2); WHITE BLOOD COUNT (AUTO) 11.4 K/uL (4.3-11.0)
[2019-03-02] MEDS: CLOTRIMAZOLE/BETAMETASONE DIPROPIONATE 15 GM TUBE TP SCH ×3 (05:42→21:00)
--- NOTE | 2019-03-02 06:30 | NUR ---
MS RN NOTE ONLY 1 EPISODES OF VAGINAL SPOTTING NOTED DURING THE ENTIRE SHIFT. WILL ENDORSE TO DAY SHIFT JOELLEN HULL.
[2019-03-02] MEDS: HEPARIN INFUSION/D5W 500 ML IV PRN (06:52)
[2019-03-02] MEDS: ACETYLCYSTEINE 10% SOLN 400 MG/4 ML VIAL NEB SCH ×3 (07:35→23:30)
[2019-03-02] MEDS ORDERED: HEPARIN SODIUM, PORCINE 5000 UNITS/1 ML VIAL IV ONE ×2 (08:30→18:00)
[2019-03-02] MEDS: LEVOTHYROXINE SODIUM 25 MCG TABLET PO SCH (08:51)
[2019-03-02] MEDS: PANTOPRAZOLE 40 MG VIAL IV SCH (08:51)
[2019-03-02] MEDS: Z GUARD REMEDY 2 OZ OINT TP SCH (09:22)
[2019-03-02] MEDS: SOD FERRIC GLUC 125 MG in IV NS 0.9% 100 ML IV SCH (15:30)
[2019-03-02] MEDS: TAMSULOSIN 0.4 MG CAP.SR.24H PO SCH (17:34)
--- NOTE | 2019-03-02 19:00 | NUR ---
MS RN CLOSING PATIENT REMAINS A/Ox3-4. ON 4L O2 VIA NC, NO RESPIRATORY DISTRESS. PATIENT REMINDED TO KEEP NC ON. R NEPHROSTOMY BAG NOT DRAINING, MD AWARE. L NEPHROSTOMY BAG 300mL YELLOW CLOUDY URINE. (LEAKING?) . PATIENT DIALYZED TODAY, 1.5L OUT, R IJ HD CATH SITE C/D/I. BLE EDEMA + ELEVATED. R UA PICC RUNNING HEPARIN PER PROTOCOL, SEE DOCUMENTATION. NOTED LIGHT VAGINAL BLEEDING. NO OVERT S/S BLEEDING. PATIENT WEIGHT ACCURATELY OBTAINED THIS SHIFT BY CHANGING BEDS. ERROR WITH PTT DRAW @1345. REDRAWN. ENDORSED TO NOC RN FOR BOOGIE
[2019-03-03 04:00] VITALS: BP 138/97
[2019-03-03] MEDS: CLOTRIMAZOLE/BETAMETASONE DIPROPIONATE 15 GM TUBE TP SCH (05:00)
[2019-03-03] MEDS: HEPARIN INFUSION/D5W 500 ML IV PRN (07:02)
[2019-03-03 07:24] LABS: BASOPHILS # (AUTO) 0.1 /CMM (0.0-0.2); BASOPHILS % (AUTO) 0.7 % (0.0-2.0); EOSINOPHILS % (AUTO) 2.7 % (0.0-6.0); HEMATOCRIT 34 % (33-45); HEMOGLOBIN 10.9 g/dL (11.5-14.8); LYMPHOCYTES # (AUTO) 0.9 /CMM (0.8-4.8); LYMPHOCYTES % (AUTO) 8.7 % (20.0-44.0); MEAN CORPUSCULAR HGB CONC 32 g/dl (31.0-36.0); MEAN CORPUSCULAR VOLUME 81 fL (82-100); MONOCYTES # (AUTO) 0.7 /CMM (0.1-1.30); MONOCYTES % (AUTO) 6.6 % (2.0-12.0); NEUTROPHILS # (AUTO) 8.2 /CMM (1.8-8.9); NEUTROPHILS % (AUTO) 81.3 % (43.0-81.0); PLATELET COUNT (AUTO) 240 /CMM (150-450); RED BLOOD CELL COUNT(AUTO) 4.18 MIL/uL (4.0-5.2); WHITE BLOOD COUNT (AUTO) 10.1 K/uL (4.3-11.0)
[2019-03-03] MEDS: ACETYLCYSTEINE 10% SOLN 400 MG/4 ML VIAL NEB SCH ×3 (07:29→23:15)
[2019-03-03] MEDS: PANTOPRAZOLE 40 MG VIAL IV SCH (07:58)
[2019-03-03] MEDS: Z GUARD REMEDY 2 OZ OINT TP SCH (07:58)
[2019-03-03] MEDS: LEVOTHYROXINE SODIUM 25 MCG TABLET PO SCH (07:58)
[2019-03-03 08:00] VITALS: BP 147/74
--- NOTE | 2019-03-03 08:01 | NUR ---
RN NOTES IN BED AWAKE WATCHING TV WITH NO DISTRESS NOTED. BREATHING EVEN AND UNLABORED. ON 4 LPM O2 VIA NASAL CANNULA WELL TOLERATED. NO COMPLAINT OF PAIN OR DISCOMFORT. ALERT AND ORIENTED. PATIENT NON COMPLIANT WITH TREATMENT OF RASHES. ON HEPARIN DRIP, AT 1300 UNTIL 2330 WITH PTT RESULT OF 125.6. DECREASE DRIP TO 1050 PER PROTOCOL AND PTT AGAIN AT 0630. NO ADVERSE EFFECT NOTED. KEPT CLEAN AND DRY. WILL ENDORSE TO NEXT SHIFT FOR CONTINUITY OF CARE.
[2019-03-03 10:49] LABS: CALCIUM, SERUM 7.9 mg/dL (8.5-10.1); CARBON DIOXIDE 22 mmol/L (21-32); CHLORIDE 103 mmol/L (98-107); GLUCOSE 116 mg/dL (74-106); POTASSIUM 4.2 mmol/L (3.5-5.1); SODIUM SERUM 135 mmol/L (136-145); UREA NITROGEN, BLOOD 38 mg/dL (7-18)
--- NOTE | 2019-03-03 11:20 | NUR ---
PER DR. STEINBERG: REPLACEMENT OF R NEPHROSTOMY TUBE TOMORROW AT 1000. OBTAIN CONSENT, PLACE PATIENT ON NPO STATUS AFTER MIDNIGHT TONIGHT, HOLD HEPARIN DRIP FOR FOUR HOURS PRIOR TO PROCEDURE, OBTAIN PTT + INR AFTER STOPPING HEPARIN DRIP.
[2019-03-03] MEDS: SOD FERRIC GLUC 125 MG in IV NS 0.9% 100 ML IV SCH (14:00)
[2019-03-03 16:00] VITALS: BP 135/71
[2019-03-03] MEDS: TAMSULOSIN 0.4 MG CAP.SR.24H PO SCH (16:03)
[2019-03-03] MEDS: ACETAMINOPHEN 325 MG TABLET PO PRN (16:03)
[2019-03-03] MEDS ORDERED: HEPARIN SODIUM, PORCINE 5000 UNITS/1 ML VIAL IVP ONE (17:00)
--- NOTE | 2019-03-03 19:00 | NUR ---
MS PROTOTYPE SEWER PATIENT REMAINS A/Ox3, FORGETFUL. ON 4L O2 VIA NC. NO SOB NOTED. NO S/S STROKE IDENTIFIED. FACE SYMMETRICAL. MANUFACTURING SUPERVISOR 2ND SHIFT EQUAL. NO SLURRING OF WORDS. BLE ELEVATED. L NEPHROSTOMY TUBE DRAINING CLOUDY YELLOW URINE(?) . R NOT DRAINING. LEAKING NOTED. RCW HD CATH C/D/I. BENNY PICC INFUSING HEPARIN DRIP PER PROTOCOL. INCREASED DOSE TODAY, REDRAW FOR PTT SCHEDULED FOR 6HRS LATER, SEE IV SPREADSHEET/ORDERS. SEE RN NOTES FOR PHYSICIAN COMMUNICATION REGARDING ORDERS FOR PROCEDURE TOMORROW. CONSENT OBTAINED FROM PATIENT AND PLACED IN CHART. LOTRIMIN D/C'D ? NOTED RASH ON BACK. ENDORSED TO MAMIE CUENCA PRANAV FOR BOOGIE Addendum: 03/03/19 at 1941 by MARY LOCO RN CORRECTION: METAL DRILL OPERATOR RN IS ELMER
--- NOTE | 2019-03-03 19:30 | NUR ---
MS RN NOTE: RECEIVED PT ON BED ALERT AND ORIENTED X3. NO APPARENT DISTRESS NOTED. NO COMPLAINTS OF PAIN OR DISCOMFORT AT THIS TIME. ON 4LPM NASAL CANNULA, NO SOB NOTED. RIGHT UPPER ARM PICC LINE INTACT AND PATENT, HEPARIN DRIP RUNNING AT 1200U/HR. NEPHROSTOMY TUBES INTACT. KEPT CLEAN, DRY AND COMFORTABLE. CALL LIGHT PLACED WITHIN REACH. SAFETY AND FALL PRECAUTIONS OBSERVED AND MAINTAINED. WILL CONTINUE TO MONITOR PT.
[2019-03-03 20:00] VITALS: BP 101/49
--- NOTE | 2019-03-03 23:30 | NUR ---
MS RN NOTE: LAB CALLED REGARDING PTT RESULT, 139.6. HABILITATIVE INTERVENTIONIST KERRI MCKEON NOTIFIED.
--- NOTE | 2019-03-03 23:45 | NUR ---
MS RN NOTE: PER MORTGAGE PROFESSIONAL LINDA HOLD HEPARIN DRIP THEN REPEAT PTT TOMORROW AT 8AM. ORDER CARRIED OUT AND DONE. WILL CONTINUE TO MONITOR PT
[2019-03-04 04:00] VITALS: BP 128/71
--- NOTE | 2019-03-04 06:45 | NUR ---
MS RN NOTE: NO CHANGES NOTED THROUGHOUT THE SHIFT. NO APPARENT DISTRESS NOTED. NO COMPLAINTS OF PAIN OR DISCOMFORT AT THIS TIME. ON 4LPM NASAL CANNULA, NO SOB NOTED. DRAINED 100ML ON LEFT NEPHROSTOMY TUBE. RIGHT UPPER ARM PICC LINE INTACT AND PATENT, FLUSHING WELL. PT KEPT NPO POST MIDNIGHT FOR PROCEDURE. KEPT CLEAN, DRY AND COMFORTABLE. SAFETY AND FALL PRECAUTIONS OBSERVED AND MAINTAINED. WILL ENDORSE TO DAY SHIFT RN FOR CONTINUITY OF CARE
[2019-03-04 07:19] LABS: BASOPHILS # (AUTO) 0.1 /CMM (0.0-0.2); BASOPHILS % (AUTO) 0.7 % (0.0-2.0); EOSINOPHILS % (AUTO) 2.7 % (0.0-6.0); HEMATOCRIT 31 % (33-45); LYMPHOCYTES % (AUTO) 10.4 % (20.0-44.0); MEAN CORPUSCULAR HGB CONC 32 g/dl (31.0-36.0); MEAN CORPUSCULAR VOLUME 81 fL (82-100); MONOCYTES # (AUTO) 0.9 /CMM (0.1-1.30); MONOCYTES % (AUTO) 9.4 % (2.0-12.0); NEUTROPHILS # (AUTO) 7.3 /CMM (1.8-8.9); NEUTROPHILS % (AUTO) 76.8 % (43.0-81.0); PLATELET COUNT (AUTO) 282 /CMM (150-450); RED BLOOD CELL COUNT(AUTO) 3.83 MIL/uL (4.0-5.2); WHITE BLOOD COUNT (AUTO) 9.5 K/uL (4.3-11.0)
--- NOTE | 2019-03-04 07:25 | NUR ---
MS/RN OPENING NOTES RECEIVED PT IN BED AWAKE, ALERT AND ABLE TO MAKE NEEDS KNOWN. NO PAIN OR ACUTE DISTRESS AT THIS TIME. RESPIRATION EVEN AND UNLABORED. SKIN IS DRY WARM TO TOUCH. PATIENT CONTINUES ON 4LPM NASAL CANNULA. IV ACCESS NOTED ON RIGHT UPPER ARM PICC LINE INTACT AND PATENT. FLUSHING WELL. NO S/S OF INFECTION OR INFILTRATION. NEPHROSTOMY TUBES INTACT. PATIENT CONTINUES TO BE ON NPO FOR SURGERY AT 10AM. ALL NEEDS ANTICIPATED. CALL LIGHT WITHIN REACHED. BED LOCKED AND IN LOWEST POSITION. WILL CONTINUE TO MONITOR CLOSELY.
[2019-03-04 07:30] LABS: CALCIUM, SERUM 7.6 mg/dL (8.5-10.1); CARBON DIOXIDE 28 mmol/L (21-32); CHLORIDE 104 mmol/L (98-107); CREATININE 3.3 mg/dL (0.6-1.3); GLUCOSE 76 mg/dL (74-106); POTASSIUM 4.6 mmol/L (3.5-5.1); SODIUM SERUM 139 mmol/L (136-145); UREA NITROGEN, BLOOD 44 mg/dL (7-18)
[2019-03-04] MEDS: LEVOTHYROXINE SODIUM 25 MCG TABLET PO SCH (07:30)
[2019-03-04] MEDS: ACETYLCYSTEINE 10% SOLN 400 MG/4 ML VIAL NEB SCH ×4 (07:33→23:06)
[2019-03-04] MEDS: PANTOPRAZOLE 40 MG VIAL IV SCH (08:42)
[2019-03-04] MEDS: Z GUARD REMEDY 2 OZ OINT TP SCH (08:43)
[2019-03-04] MEDS ORDERED: FENTANYL PF 250MCG/5ML AMPUL IV ONE (09:30)
[2019-03-04] MEDS ORDERED: NALOXONE PREFILLED SYRINGE 2 MG/2 ML SYRINGE IV ONE (09:30)
[2019-03-04] MEDS ORDERED: MIDAZOLAM HCL 5MG/ML VIAL 25 MG/5 ML VIAL IV ONE (09:30)
--- NOTE | 2019-03-04 09:50 | NUR ---
MS/RN NOTES PATIENT WAS PICKED UP BY NURSES FROM SURGERY. PATIENT LEFT THE UNIT IN STABLE CONDITION. WILL BE AWAITING FOR THE PATIENTS RETURN.
[2019-03-04] MEDS ORDERED: IOHEXOL-350 100 ML VIAL IV ONE (10:06)
[2019-03-04] MEDS ORDERED: FENTANYL PF 100MCG/2ML AMPUL IV ONE (11:00)
--- NOTE | 2019-03-04 11:02 | NUR ---
MS/RN NOTES PATIENT CAME BACK TO THE UNIT FROM SURGERY. PER SURGERY NURSE, PATIENT WILL CONTINUES PREVIOUS ORDERS IN THE UNIT INCLUDING THE DIET. PATIENT CONTINUES TO REMAIN IN STABLE CONDITION. WILL CONTINUE TO MONITOR CLOSELY.
[2019-03-04] MEDS: SOD FERRIC GLUC 125 MG in IV NS 0.9% 100 ML IV SCH (14:16)
[2019-03-04] MEDS: FLUCONAZOLE (100 MG) 100 MG TABLET PO SCH (14:20)
[2019-03-04 16:00] VITALS: BP 135/82
[2019-03-04] MEDS: ACETAMINOPHEN 325 MG TABLET PO PRN (16:00)
[2019-03-04] MEDS: APIXABAN 2.5 MG TABLET PO SCH (17:00)
[2019-03-04] MEDS: TAMSULOSIN 0.4 MG CAP.SR.24H PO SCH (18:22)
--- NOTE | 2019-03-04 18:50 | NUR ---
MS/RN CLOSING NOTES PATIENT CONTINUES TO REMAIN IN STABLE CONDITION THROUGHOUT THE SHIFT. PROVIDED COMFORT AND SAFETY. PATIENT HAD A TEMP OF 100.9 TYLENOL WAS GIVEN ORDERED AND IT WENT DOWN TO 98.5 UPON TRANSFERRING CARE TO PM NURSE. BILATERAL NEPHROSTOMY DRAINING WELL. PATIENT ABLE TO TOLERATE MEALS AND MEDS WELL. NO PAIN OR ACUTE DISTRESS AT THIS TIME. RESPIRATION EVEN AND UNLABORED. SKIN IS DRY WARM TO TOUCH. ALL NEEDS ANTICIPATED. CALL LIGHT WITHIN REACHED. SAFETY MAINTAINED. BED LOCKED AND IN LOWEST POSITION. ENDORSED TO PM NURSE FOR BOOGIE.
--- NOTE | 2019-03-04 19:30 | NUR ---
MS RN NOTE: RECEIVED PT ON BED ALERT AND ORIENTED X3. NO APPARENT DISTRESS NOTED. NO COMPLAINTS OF PAIN OR DISCOMFORT AT THIS TIME. ON 4LPM NASAL CANNULA, NO SOB NOTED. RIGHT UPPER ARM PICC LINE INTACT AND PATENT, FLUSHING WELL. NEPHROSTOMY TUBES INTACT. KEPT CLEAN, DRY AND COMFORTABLE. CALL LIGHT PLACED WITHIN REACH. SAFETY AND FALL PRECAUTIONS OBSERVED AND MAINTAINED. WILL CONTINUE TO MONITOR PT.
[2019-03-04 20:00] VITALS: BP 94/62
[2019-03-04] MEDS: ALBUTEROL HALF STRENGTH 1.25 MG/3 ML VIAL.NEB NEB PRN (23:03)
[2019-03-05 04:00] VITALS: BP 117/68
--- NOTE | 2019-03-05 06:48 | NUR ---
MS RN NOTE: NO CHANGES NOTED THROUGHOUT THE SHIFT. NO APPARENT DISTRESS NOTED. NO COMPLAINTS OF PAIN OR DISCOMFORT AT THIS TIME. ON 4LPM NASAL CANNULA, NO SOB NOTED. DRAINED 100ML ON LEFT NEPHROSTOMY TUBE AND 600ML ON RIGHT NEPHROSTOMY TUBE. RIGHT UPPER ARM PICC LINE INTACT AND PATENT, FLUSHING WELL. KEPT CLEAN, DRY AND COMFORTABLE. SAFETY AND FALL PRECAUTIONS OBSERVED AND MAINTAINED. WILL ENDORSE TO DAY SHIFT RN FOR CONTINUITY OF CARE
[2019-03-05 07:15] LABS: CALCIUM, SERUM 7.4 mg/dL (8.5-10.1); CARBON DIOXIDE 28 mmol/L (21-32); CHLORIDE 108 mmol/L (98-107); CREATININE 2.9 mg/dL (0.6-1.3); GLUCOSE 70 mg/dL (74-106); MAGNESIUM 1.3 mg/dL (1.8-2.4); POTASSIUM 4.1 mmol/L (3.5-5.1); SODIUM SERUM 143 mmol/L (136-145); UREA NITROGEN, BLOOD 39 mg/dL (7-18)
[2019-03-05 07:18] LABS: BASOPHILS # (AUTO) 0.1 /CMM (0.0-0.2); BASOPHILS % (AUTO) 0.6 % (0.0-2.0); EOSINOPHILS % (AUTO) 2.8 % (0.0-6.0); HEMATOCRIT 27 % (33-45); HEMOGLOBIN 8.6 g/dL (11.5-14.8); LYMPHOCYTES # (AUTO) 1.2 /CMM (0.8-4.8); LYMPHOCYTES % (AUTO) 12.1 % (20.0-44.0); MEAN CORPUSCULAR HGB CONC 32 g/dl (31.0-36.0); MEAN CORPUSCULAR VOLUME 81 fL (82-100); MONOCYTES # (AUTO) 1.1 /CMM (0.1-1.30); MONOCYTES % (AUTO) 10.5 % (2.0-12.0); NEUTROPHILS # (AUTO) 7.5 /CMM (1.8-8.9); PLATELET COUNT (AUTO) 243 /CMM (150-450); RED BLOOD CELL COUNT(AUTO) 3.28 MIL/uL (4.0-5.2); WHITE BLOOD COUNT (AUTO) 10.2 K/uL (4.3-11.0)
[2019-03-05] MEDS: ACETYLCYSTEINE 10% SOLN 400 MG/4 ML VIAL NEB SCH ×2 (07:59→14:32)
[2019-03-05 08:00] VITALS: BP 133/70
[2019-03-05] MEDS: FLUCONAZOLE (100 MG) 100 MG TABLET PO SCH (10:32)
[2019-03-05] MEDS: PANTOPRAZOLE 40 MG VIAL IV SCH (10:32)
[2019-03-05] MEDS: LEVOTHYROXINE SODIUM 25 MCG TABLET PO SCH (10:32)
[2019-03-05] MEDS: Z GUARD REMEDY 2 OZ OINT TP SCH (10:46)
[2019-03-05] MEDS: APIXABAN 2.5 MG TABLET PO SCH (13:00)
[2019-03-05] MEDS ORDERED: APIX2.5T PO (16:09)
[2019-03-05] MEDS ORDERED: FLUC100T8 PO (16:09)
[2019-03-05] MEDS: SOD FERRIC GLUC 125 MG in IV NS 0.9% 100 ML IV SCH (16:28)
[2019-03-05] MEDS: ACETAMINOPHEN 325 MG TABLET PO PRN (18:43)
--- NOTE | 2019-03-05 18:50 | NUR ---
pt discharge papers given to ambulance staff. medicated with tylenol 650mg for general discomfort. picc line discontinued. report called to leandra. discharged to snf per ambulance.to ivania abreu
== END 2019-03-05 18:30 | DRG 871 ==
LOC: ER 14:46 → EDSEX 14:46 → TELE1 17:51 → ICU 02-14 00:25 → TELE1 02-15 22:05 → MEDSG1 02-18 10:20 → TELE1 02-21 14:12 → MEDSG1 02-27 11:05
PROVIDERS: ADMIT Internal Medicine; ATTEND Hospitalist
PROC: 02HV33Z Insertion of Infusion Device into Superior Vena Cava, Percutaneous Approach (ICD-10-PCS; 2019-02-14)
PROC: B548ZZA Ultrasonography of Superior Vena Cava, Guidance (ICD-10-PCS; 2019-02-14)
PROC: 06HY33Z Insertion of Infusion Device into Lower Vein, Percutaneous Approach (ICD-10-PCS; 2019-02-22)
PROC: 5A1D70Z Performance of Urinary Filtration, Intermittent, Less than 6 Hours Per Day (ICD-10-PCS; 2019-02-22)
PROC: 30233N1 Transfusion of Nonautologous Red Blood Cells into Peripheral Vein, Percutaneous Approach (ICD-10-PCS; 2019-02-25)
PROC: 02HV33Z Insertion of Infusion Device into Superior Vena Cava, Percutaneous Approach (ICD-10-PCS; principal; 2019-02-28)
PROC: B518YZA Fluoroscopy of Superior Vena Cava using Other Contrast, Guidance (ICD-10-PCS; principal; 2019-02-28)
PROC: 0JH63XZ Insertion of Tunneled Vascular Access Device into Chest Subcutaneous Tissue and Fascia, Percutaneous Approach (ICD-10-PCS; principal; 2019-02-28)
PROC: 0T25X0Z Change Drainage Device in Kidney, External Approach (ICD-10-PCS; 2019-03-04)
DX: A41.9 Sepsis, unspecified organism (principal); N17.0 Acute kidney failure with tubular necrosis; E43 Unspecified severe protein-calorie malnutrition; R65.21 Severe sepsis with septic shock; N18.6 End stage renal disease; I12.0 Hypertensive chronic kidney disease with stage 5 chronic kidney disease or end stage renal disease; I82.413 Acute embolism and thrombosis of femoral vein, bilateral; E87.2 Acidosis; N12 Tubulo-interstitial nephritis, not specified as acute or chronic; N13.6 Pyonephrosis; B37.49 Other urogenital candidiasis; E83.42 Hypomagnesemia; Z68.26 Body mass index [BMI] 26.0-26.9, adult; C67.9 Malignant neoplasm of bladder, unspecified; E83.39 Other disorders of phosphorus metabolism; Y83.8 Other surgical procedures as the cause of abnormal reaction of the patient, or of later complication, without mention of misadventure at the time of the procedure; N99.522 Malfunction of incontinent external stoma of urinary tract; Y92.89 Other specified places as the place of occurrence of the external cause; D50.9 Iron deficiency anemia, unspecified; F39 Unspecified mood [affective] disorder; E87.5 Hyperkalemia; E03.9 Hypothyroidism, unspecified; D47.3 Essential (hemorrhagic) thrombocythemia; E88.09 Other disorders of plasma-protein metabolism, not elsewhere classified; Z66 Do not resuscitate; Z68.30 Body mass index [BMI] 30.0-30.9, adult; I12.9 Hypertensive chronic kidney disease with stage 1 through stage 4 chronic kidney disease, or unspecified chronic kidney disease; E83.9 Disorder of mineral metabolism, unspecified; B96.5 Pseudomonas (aeruginosa) (mallei) (pseudomallei) as the cause of diseases classified elsewhere; Y73.2 Prosthetic and other implants, materials and accessory gastroenterology and urology devices associated with adverse incidents; D63.1 Anemia in chronic kidney disease; K76.89 Other specified diseases of liver; B96.4 Proteus (mirabilis) (morganii) as the cause of diseases classified elsewhere
CPT/HCPCS: 36415; 36569; 71045-TC; 74425-TC; 75989; 75989-TC; 80048-TC; 80053-TC; 80076-TC; 80202-TC; 81000-TC; 82105; 82272-TC; 82378; 82550-TC; 82570-TC; 82728-TC; 82962-TC; 83540-TC; 83605-TC; 83735-TC; 83970; 84100-TC; 84155; 84155-TC; 84165; 84300-TC; 84443-TC; 84484-TC; 85025-TC; 85610-TC; 85730-TC; 86301; 86706; 86850-TC; 86921-TC; 87040-TC; 87070-TC; 87081-TC; 87086-TC; 87186-TC; 87340; 90935-TC; 93970-TC; 94799-TC; A4216; A6253; A6403; C9113; G0378; J0278; J0713; J1644; J1956; J2185; J2250; J2310; J2704; J2916; J3010; J3370; J3475; J3490; J7030; J7040; J7050; J7060; P9016-BL; P9047; Q0163; Q9966; Q9967

== ENCOUNTER 2019-05-01 19:33 | Inpatient (IN) | payer MEDICARE, MEDICAID ==
[~2019-05-01] VITALS: Ht 162.6 cm; Wt 63.0 kg
[~2019-05-01 19:33] MED LIST: APIX2.5T PO; DILT-1 PO; FLUC100T8 PO; LEVO25TA9 PO; METO25TA20 PO; MULT-447 PO; TAMS-12 PO
--- NOTE | 2019-05-01 19:33 | NUR ---
PT YAMILE CORRAL FROM [facility] WITH A C/O OLIVIA CATH MALFUNCTION. PT HAS A OLIVIA CATH IN [facility], BILATERAL NEPHROSTOMY TUBES, DECUBITUS ON COCCYX AND A RASH ON HER BACK. PT IS AA&O X 3. PT IS NON AMBULATORY. PT'S FRIEND IS AT THE BEDSIDE.
[2019-05-01 20:18] LABS: BASOPHILS # (AUTO) 0.1 /CMM (0.0-0.2); BASOPHILS % (AUTO) 0.5 % (0.0-2.0); EOSINOPHILS % (AUTO) 2.3 % (0.0-6.0); HEMATOCRIT 35 % (33-45); LYMPHOCYTES # (AUTO) 3.1 /CMM (0.8-4.8); LYMPHOCYTES % (AUTO) 13.5 % (20.0-44.0); MEAN CORPUSCULAR HGB CONC 31 g/dl (31.0-36.0); MEAN CORPUSCULAR VOLUME 83 fL (82-100); MONOCYTES # (AUTO) 1.2 /CMM (0.1-1.30); NEUTROPHILS # (AUTO) 18.1 /CMM (1.8-8.9); NEUTROPHILS % (AUTO) 78.7 % (43.0-81.0); PLATELET COUNT (AUTO) 289 /CMM (150-450); RED BLOOD CELL COUNT(AUTO) 4.26 MIL/uL (4.0-5.2)
--- NOTE | 2019-05-01 20:20 | NUR ---
CXR IN PROGRESS AT THE BEDSIDE.
[2019-05-01 20:32] LABS: CALCIUM, SERUM 9.3 mg/dL (8.5-10.1); CARBON DIOXIDE 26 mmol/L (21-32); CHLORIDE 108 mmol/L (98-107); CREATININE 1.1 mg/dL (0.6-1.3); GLUCOSE 102 mg/dL (74-106); POTASSIUM 3.1 mmol/L (3.5-5.1); SODIUM SERUM 141 mmol/L (136-145); UREA NITROGEN, BLOOD 11 mg/dL (7-18)
[2019-05-01 20:40] LABS: BAND % (MANUAL) 2 % (0.0-5.0); EOSINOPHILS % (MANUAL) 4 % (0-4); LYMPHOCYTES % (MANUAL) 16 % (16-48); MONOCYTES % (MANUAL) 3 % (0-11.0); NEUTROPHILS % (MANUAL) 75 (42-76)
--- NOTE | 2019-05-01 20:55 | NUR ---
CALLED [facility] GELY
[2019-05-01] MEDS ORDERED: LEVOFLOXACIN 750 MG /D5W 150ML 150 ML IV ONE ×2 (21:00→21:51)
[2019-05-01] MEDS ORDERED: VANCOMYCIN 1 GM in IV D5W 250 ML IV ONE (21:00)
--- NOTE | 2019-05-01 21:08 | NUR ---
CALLED NURSING SUP FOR BED
--- NOTE | 2019-05-01 21:10 | NUR ---
BLOOD CULTURES DRAWN BY EDDIE TRAFFIC CONTROL TECHNICIAN.
[2019-05-01] MEDS ORDERED: HYDROCODONE/APAP 5/325MG 1 EACH TABLET PO PRN (21:30)
[2019-05-01] MEDS ORDERED: MAGNESIUM HYDROXIDE 30 ML UDC PO PRN (21:30)
[2019-05-01] MEDS ORDERED: MAG HYDROX/AL HYDROX/SIMETH 30 ML UDC PO PRN (21:30)
[2019-05-01] MEDS ORDERED: ACETAMINOPHEN 325 MG TABLET PO PRN (21:30)
[2019-05-01] MEDS ORDERED: Z GUARD REMEDY 2 OZ OINT TP PRN (21:30)
[2019-05-01] MEDS ORDERED: ONDANSETRON HCL/PF 4 MG/2 ML VIAL IVP PRN (21:30)
--- NOTE | 2019-05-01 21:30 | NUR ---
ADJUSTED PT IN BED. PT'S O2 SAT DECREASED TO 90% ON RA. PT WAS PLACED ON 3L O2 VIA NC AND IS NOW SATURATING AT 96%.
--- NOTE | 2019-05-01 21:34 | NUR ---
Andreina danielson in [facility] - 05/01/19 at 2136 by YUNG [id number] TELE
--- NOTE | 2019-05-01 21:35 | NUR ---
*310-1 [facility]
--- NOTE | 2019-05-01 21:37 | NUR ---
CALLING REPORT TO MS NURSE.
--- NOTE | 2019-05-01 21:42 | NUR ---
REPORT GIVEN TO JOELLEN BARNES
--- NOTE | 2019-05-01 21:43 | NUR ---
ENDORSED LEVAQUIN 750MG TO JOELLEN BARNES, MEDSURG.
[2019-05-01 22:00] VITALS: BP 144/103
--- NOTE | 2019-05-01 22:30 | NUR ---
MS COOPER HELPER NOTES RECEIVED PATIENT FROM ER VIA GURNEY ACCOMPANIED BY ER STAFFS. ALERT AND ORIENTED X 3 VERBALLY RESPONSIVE AND ABLE TO FOLLOW DIRECTIONS. BREATHING REGULAR AND UNLABORED ON OXYGEN AT 3L/min VIA NASAL CANNULA. LEFT FOREARM G22 IV LINE INTACT AND PATENT, INFUSING WELL WITH NO BLEEDING OR S/S OF INFILTRATION NOTED. BODY ASSESSMENT DONE, SEEN WITH MULTIPLE SKIN ISSUES. PHOTO TAKEN, ATTACHED TO CHART. INITIAL VITAL SIGNS TAKEN. RIGHT UPPER CHEST PERMACATH INTACT WITH CLEAN DRESSING, NO BLEEDING NOTED. BILATERAL NEPHROSTOMY TUBE INTACT WITH CLOUDY YELLOW OUTPUT BOTH WITH MODERATE AMOUNT ON BAG. BELONGINGS CHECKED BY WET PROCESS ASSISTANT HEAD MILLER. COMPLAINED OF 8/10 GENERALIZED PAIN/DISCOMFORT, NON-PHARMACOLOGICAL INTERVENTIONS PROVIDED. BED LOW AND LOCKED ON SEMI FOWLERS POSITION. CALL LIGHT IN REACH. WILL CONTINUE TO MONITOR.
[2019-05-01] MEDS ORDERED: MEROPENEM 500 MG VIAL IV ONE (23:10)
--- NOTE | 2019-05-01 23:15 | NUR ---
MS RN NOTES 500MG DOSE OF IV MERREM TAKEN BY CHARGE NURSE FROM THE [facility]. INFUSING WELL WITH NO DRUG ADVERSE REACTIONS NOTED. WILL CONTINUE TO MONITOR.
[2019-05-01] MEDS: MEROPENEM 500 MG in IV NS 0.9% 50 ML IV SCH (23:40)
--- NOTE | 2019-05-02 06:30 | NUR ---
MS RN CLOSING NOTES PATIENT IN BED ALERT AND ORIENTED X 3 VERBALLY RESPONSIVE AND ABLE TO FOLLOW DIRECTIONS. BREATHING REGULAR AND UNLABORED ON OXYGEN AT 3L/min VIA NASAL CANNULA. LEFT FOREARM G22 IV LINE INTACT AND FLUSHING WELL. RIGHT UPPER CHEST PERMACATH INTACT WITH CLEAN DRESSING. BILATERAL NEPHROSTOMY TUBE INTACT WITH CLOUDY YELLOW OUTPUT; 300cc OUTPUT ON RIGHT NEPHROSTOMY AND 100cc OUTPUT ON LEFT NEPHROSTOMY. NO COMPLAINTS OF PAIN/DISCOMFORT REPORTED OF THE TIME. BED LOW AND LOCKED ON SEMI FOWLERS POSITION. CALL LIGHT IN REACH. WILL ENDORSE TO MORNING SHIFT FOR BOOGIE.
[2019-05-02 07:15] LABS: BASOPHILS # (AUTO) 0.1 /CMM (0.0-0.2); BASOPHILS % (AUTO) 0.3 % (0.0-2.0); HEMATOCRIT 31 % (33-45); HEMOGLOBIN 9.7 g/dL (11.5-14.8); LYMPHOCYTES # (AUTO) 1.6 /CMM (0.8-4.8); LYMPHOCYTES % (AUTO) 7.4 % (20.0-44.0); MEAN CORPUSCULAR HGB CONC 31 g/dl (31.0-36.0); MEAN CORPUSCULAR VOLUME 82 fL (82-100); MONOCYTES # (AUTO) 0.9 /CMM (0.1-1.30); MONOCYTES % (AUTO) 4.5 % (2.0-12.0); NEUTROPHILS # (AUTO) 18.3 /CMM (1.8-8.9); NEUTROPHILS % (AUTO) 86.8 % (43.0-81.0); PLATELET COUNT (AUTO) 259 /CMM (150-450); RED BLOOD CELL COUNT(AUTO) 3.81 MIL/uL (4.0-5.2); WHITE BLOOD COUNT (AUTO) 21.1 K/uL (4.3-11.0)
[2019-05-02 07:23] LABS: ALBUMIN 1.7 g/dL (3.4-5.0); BILIRUBIN,TOTAL 0.3 mg/dL (0.2-1.0); CALCIUM, SERUM 9.1 mg/dL (8.5-10.1); CREATININE 1.3 mg/dL (0.6-1.3); MAGNESIUM 1.6 mg/dL (1.8-2.4); PHOSPHORUS 1.9 mg/dL (2.5-4.9); POTASSIUM 3.4 mmol/L (3.5-5.1); TOTAL PROTEIN, SERUM 6.4 g/dL (6.4-8.2)
[2019-05-02] MEDS ORDERED: FEE PK DOSING 1 MIN EA MC ONE (07:49)
--- NOTE | 2019-05-02 07:52 | NUR ---
MS RN NOTES PATIENT RECEIVED RESTING INSIDE ROOM. AWAKE, ALERT AND ORIENTED X 3. VERBALLY RESPONSIVE AND RESPONDS TO VERBAL AND TACTILE STIMULI. NO ACUTE DISTRESS. DENIES ANY PAIN OR DISCOMFORT. BILATERAL NEPHROSTOMY TUBES IN PLACE WITH CLEAR YELLOW URINE OUTPUT NOTED. SAFETY PRECAUTIONS IN PLACE. WILL CONTINUE TO MONITOR. BED LOCKED AND IN LOW POSITION. BILATERAL UPPER SDIE RAILS UP AND LOCKED. CALL LIGHT WITHIN EASY REACH
[2019-05-02 08:00] VITALS: BP 100/53
[2019-05-02] MEDS: METOPROLOL TARTRATE 25 MG TABLET PO SCH ×2 (09:00→16:47)
[2019-05-02] MEDS: DILTIAZEM HCL CD 120 MG PO SCH (09:00)
[2019-05-02] MEDS: MEROPENEM 500 MG in IV NS 0.9% 50 ML IV SCH ×2 (09:11→21:04)
[2019-05-02] MEDS: FLUCONAZOLE (100 MG) 100 MG TABLET PO SCH (09:11)
[2019-05-02] MEDS: LEVOTHYROXINE SODIUM 25 MCG TABLET PO SCH (09:12)
--- NOTE | 2019-05-02 09:13 | NUR ---
WOUND CARE CONSULT: PT PRESENTS WITH BILATERAL NEPHROSTOMY TUBES, RASHES TO BREASTFOLDS AND BUTTOCKS AND SKIN TEAR TO RT SIDE OF BACK, AND SKIN DISCOLORATION ON BACK, ALL PRESENT ON ADMISSION. RECOMMENDATIONS MADE FOR SKIN PROTECTION. DISCUSSED WITH NURSING STAFF. PT NOTED TO BE INCONTINENT OF STOOL. WILL SEE PRN. ISOFLEX LOW AIRLOSS BED TO BE PLACED. MD IN AGREEMENT WITH PLAN OF CARE. CURRENT JERARDO SCORE IS 16. Addendum: 05/02/19 at 0915 by JC BRADY WNDNU Amended: Links added.
[2019-05-02] MEDS ORDERED: POTASSIUM CHLORIDE 20 MEQ TAB.PRT.SR PO SCH (10:30)
--- NOTE | 2019-05-02 10:47 | NUR ---
MS RN NOTES PATIENT SEEN AND EXAMINED BY DR XIE. MADE AWARE OF APTT RESULT >170.0. GAVE OK TO RESUME ELIQUIS ORDERED. WITNESSED BY CHARGE NURSE. WILL CONTINUE TO MONITOR
[2019-05-02] MEDS: APIXABAN 2.5 MG TABLET PO SCH ×2 (10:58→16:46)
[2019-05-02] MEDS: Magnesium 1GM/D5W 100ML PREMIX 100 ML IV SCH ×2 (10:59→12:27)
[2019-05-02] MEDS ORDERED: ALTEPLASE CATHFLO 2 MG/VIAL XX ONE (11:00)
[2019-05-02 16:00] VITALS: BP 104/55
--- NOTE | 2019-05-02 16:11 | NUR ---
MS RN NOTES SIGIFREDO HSIEH, AOC AADC OPERATIONS STAFF OFFICER FROM [facility] ([facility]) PRESENT AT UNIT. REQUESTING FOR PATIENT INFORMATION. AOC AADC OPERATIONS STAFF OFFICER TRAN MADE AWARE AND ACKNOWLEDGE SITUATION. SIGIFREDO HSIEH LEFT CONTACT INFORMATION (TEL: [phone])
[2019-05-02] MEDS: TAMSULOSIN 0.4 MG CAP.SR.24H PO SCH (16:46)
[2019-05-02] MEDS: CLOTRIMAZOLE 1% 15 GM TUBE TP SCH (16:51)
[2019-05-02] MEDS ORDERED: VANCOMYCIN 500 MG in IV D5W 100 ML IV PRN (17:00)
--- NOTE | 2019-05-02 18:59 | NUR ---
MS RN NOTES PATIENT RESTING INSIDE ROOM. REMAINS AWAKE, ALERT AND ORIENTED. X 2-3. PATIENT REORIENTED NEEDED. PATIENT KEPT CLEAN, DRY AND COMFORTABLE. BILATERAL NEPHROSTOMY IN PLACE AND DRAINING. SAFETY PRECAUTIONS IN PLACE. WILL ENDORSE TO INCOMING SHIFT FOR BOOGIE. BED LOCKED AND IN LOW POSITION. BILATERAL UPPER SIDE RAILS UP AND LOCKED. CALL LIGHT WITHIN EASY REACH
[2019-05-02 19:42] LABS: APPEARANCE,URINE SL CLOUDY (CLEAR); BILIRUBIN,URINE NEGATIVE (NEGATIVE); BLOOD, URINE SMALL Ery/uL (NEGATIVE); COLOR,URINE YELLOW (YELLOW); KETONES,URINE NEGATIVE (NEGATIVE); LEUKOCYTE ESTERASE ,URINE LARGE (NEGATIVE); NITRITE, URINE POSITIVE (NEGATIVE); PH,URINE 5.5 (5.0-8.0); PROTEIN,URINE 100 mg/dl (NEGATIVE); UGLUCOSE NEGATIVE (NEGATIVE); UROBILINOGEN,URINE 0.2 EU/dL (0.2)
[2019-05-02 19:49] LABS: BACTERIA,URINE 2+ /HPF (None Seen); SQUAMOUS EPITHELIAL CELL,UR Few /HPF (None Seen); WBC,URINE 81-100 /HPF (0-3)
[2019-05-02 20:00] VITALS: BP 103/52
--- NOTE | 2019-05-02 20:26 | NUR ---
RN NOTES PM SHIFT PATIENT ALERT AND ORIENTED X3, ON 3LPM VIA NC, NO COMPLAIN OF PAIN, BILATERAL NEPHROSTOMY DRAINING WELL, FALL PRECAUTION, KEPT SAFE, WILL CONTINUE TO MONITOR.
[2019-05-02 20:36] VITALS: BP 103/52
[2019-05-03 06:19] LABS: BASOPHILS # (AUTO) 0.1 /CMM (0.0-0.2); BASOPHILS % (AUTO) 0.5 % (0.0-2.0); EOSINOPHILS % (AUTO) 2.6 % (0.0-6.0); HEMATOCRIT 32 % (33-45); HEMOGLOBIN 10.1 g/dL (11.5-14.8); LYMPHOCYTES # (AUTO) 1.5 /CMM (0.8-4.8); LYMPHOCYTES % (AUTO) 10.1 % (20.0-44.0); MEAN CORPUSCULAR HGB CONC 32 g/dl (31.0-36.0); MEAN CORPUSCULAR VOLUME 82 fL (82-100); MONOCYTES # (AUTO) 0.9 /CMM (0.1-1.30); MONOCYTES % (AUTO) 5.6 % (2.0-12.0); NEUTROPHILS # (AUTO) 12.3 /CMM (1.8-8.9); NEUTROPHILS % (AUTO) 81.2 % (43.0-81.0); PLATELET COUNT (AUTO) 302 /CMM (150-450); RED BLOOD CELL COUNT(AUTO) 3.89 MIL/uL (4.0-5.2); WHITE BLOOD COUNT (AUTO) 15.1 K/uL (4.3-11.0)
[2019-05-03 06:30] LABS: CALCIUM, SERUM 9.8 mg/dL (8.5-10.1); CARBON DIOXIDE 24 mmol/L (21-32); CHLORIDE 105 mmol/L (98-107); CREATININE 1.4 mg/dL (0.6-1.3); GLUCOSE 91 mg/dL (74-106); POTASSIUM 3.8 mmol/L (3.5-5.1); SODIUM SERUM 138 mmol/L (136-145); UREA NITROGEN, BLOOD 14 mg/dL (7-18)
--- NOTE | 2019-05-03 07:17 | NUR ---
RN NOTES PATIENT ALERT AND ORIENTED X3, ON 3LPM VIA NC, SPO2 94%, DENIES PAIN AT THIS TIME, BILATERAL NEPHROSTOMY, LEFT OUTPUT 25, RIGHT OUTPUT 250 ML. WOUND CARE PERFORMED, HD CATH INTACT AND SECURED WITH DRY DRESSING, NO HD FOR NOW, BUN/CR WNL. CONTINUE MERREM
[2019-05-03 08:00] VITALS: BP 122/48
[2019-05-03] MEDS: LEVOTHYROXINE SODIUM 25 MCG TABLET PO SCH (09:35)
[2019-05-03] MEDS: DILTIAZEM HCL CD 120 MG PO SCH (09:35)
[2019-05-03] MEDS: FLUCONAZOLE (100 MG) 100 MG TABLET PO SCH (09:36)
[2019-05-03] MEDS: METOPROLOL TARTRATE 25 MG TABLET PO SCH ×2 (09:38→17:00)
[2019-05-03] MEDS: MEROPENEM 500 MG in IV NS 0.9% 50 ML IV SCH ×2 (11:06→21:33)
[2019-05-03] MEDS: CLOTRIMAZOLE 1% 15 GM TUBE TP SCH ×2 (11:08→18:44)
[2019-05-03] MEDS: APIXABAN 2.5 MG TABLET PO SCH ×2 (11:29→18:21)
[2019-05-03] MEDS ORDERED: VANCOMYCIN 500 MG in IV D5W 100 ML IV ONE (15:00)
--- NOTE | 2019-05-03 18:00 | NUR ---
hep lock leaking,removed.new start rt. hand #22 angio.
[2019-05-03] MEDS: TAMSULOSIN 0.4 MG CAP.SR.24H PO SCH (18:19)
--- NOTE | 2019-05-03 18:56 | NUR ---
received call from maury,jackson rt, nares,bactroban ordered,special agent in charge notified.
--- NOTE | 2019-05-03 19:00 | NUR ---
RT NEPHROSTOMY TUBE OUTPUT 2OO ML.LT. TUBE OUTPUT 25 ML.RELOCATED TO RM. 326-2.
[2019-05-03 20:00] VITALS: BP 126/59
[2019-05-03 21:33] VITALS: BP 93/49
[2019-05-03] MEDS: MUPIROCIN OINT 2% 22 GM TUBE SCH (21:47)
--- NOTE | 2019-05-04 00:45 | NUR ---
MS/RN PATIENT IS SLEEPING, AROUSABLE, APPEAR COMFORTABLE, NO SIGNS OF DISTRESS NOTED, CALL LIGHT IN REACH. WILL CONTINUE TO MONITOR.
--- NOTE | 2019-05-04 06:45 | NUR ---
MS/RN PATIENT IS SLEEPING AT THIS TIME, AROUSABLE, APPEAR COMFORTABLE, NO SIGNS OF DISTRESS NOTED, CALL LIGHT IN REACH, ALL NEEDS ATTENDED AT THIS TIME, WILL CONTINUE TO MONITOR.
--- NOTE | 2019-05-04 07:15 | NUR ---
MS RN OPENING NOTES RECEIVED PATIENT IN BED ASLEEP. AROUSABLE TO VERBAL AND TACTILE STIMULI. NO SOB. DENIES ANY C/O PAIN NOR DISCOMFORT AT THIS TIME. 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 RT HAND SL #22 INTACT AND PATENT. BED IN LOWEST POSITION, LOCKED. BED ALARM ON. CALL LIGHT WITHIN REACH. BED SIDERAILS UP X2.
[2019-05-04 07:42] LABS: CALCIUM, SERUM 9.7 mg/dL (8.5-10.1); CREATININE 1.3 mg/dL (0.6-1.3)
[2019-05-04] MEDS: LEVOTHYROXINE SODIUM 25 MCG TABLET PO SCH (08:16)
[2019-05-04] MEDS: DILTIAZEM HCL CD 120 MG PO SCH (08:43)
[2019-05-04] MEDS: FLUCONAZOLE (100 MG) 100 MG TABLET PO SCH (08:44)
[2019-05-04] MEDS: APIXABAN 2.5 MG TABLET PO SCH (08:50)
[2019-05-04 08:56] VITALS: BP 111/80
[2019-05-04] MEDS: METOPROLOL TARTRATE 25 MG TABLET PO SCH (08:56)
[2019-05-04] MEDS: MUPIROCIN OINT 2% 22 GM TUBE SCH (09:03)
[2019-05-04] MEDS: CLOTRIMAZOLE 1% 15 GM TUBE TP SCH (09:03)
[2019-05-04 09:04] LABS: BASOPHILS # (AUTO) 0.1 /CMM (0.0-0.2); BASOPHILS % (AUTO) 0.8 % (0.0-2.0); EOSINOPHILS % (AUTO) 3.3 % (0.0-6.0); HEMATOCRIT 33 % (33-45); HEMOGLOBIN 10.3 g/dL (11.5-14.8); LYMPHOCYTES # (AUTO) 1.8 /CMM (0.8-4.8); LYMPHOCYTES % (AUTO) 15.3 % (20.0-44.0); MEAN CORPUSCULAR HGB CONC 31 g/dl (31.0-36.0); MEAN CORPUSCULAR VOLUME 83 fL (82-100); MONOCYTES # (AUTO) 0.6 /CMM (0.1-1.30); MONOCYTES % (AUTO) 4.8 % (2.0-12.0); NEUTROPHILS % (AUTO) 75.8 % (43.0-81.0); PLATELET COUNT (AUTO) 346 /CMM (150-450); RED BLOOD CELL COUNT(AUTO) 4.02 MIL/uL (4.0-5.2); WHITE BLOOD COUNT (AUTO) 11.8 K/uL (4.3-11.0)
[2019-05-04] MEDS: MEROPENEM 500 MG in IV NS 0.9% 50 ML IV SCH (09:06)
[2019-05-04 09:34] LABS: THYROID STIMULATING HORMONE 2.686 uIU/mL (0.358-3.74)
[2019-05-04 11:31] LABS: LYMPHOCYTES % (MANUAL) 15 % (16-48); MONOCYTES % (MANUAL) 5 % (0-11.0); NEUTROPHILS % (MANUAL) 80 (42-76)
[2019-05-04] MEDS ORDERED: VANCOMYCIN 0.75 GM in IV D5W 250 ML IV SCH (15:00)
--- NOTE | 2019-05-04 15:45 | NUR ---
MS RN NOTES ALERT AND ORIENTED X4. PATIENT FOR DISCHARGE AND RETURN TO [facility]. NO SOB. DENIES ANY C/O PAIN NOR DISCOMFORT AT THIS TIME. DISCHARGE INSTRUCTIONS AND PACKET GIVEN TO EMT. DISCHARGE INSTRUCTIONS GIVEN TO JOELLEN CHAIDEZ AT [facility] ALONG WITH REPORT GIVEN. ALL BELONGINGS ACCOUNTED FOR. IV ACCESS REMOVED WITH CATHETER TIP INTACT. LEFT AND RIGHT NEPHROSTOMY INTACT DRAINING YELLOW COLORED URINE. WOUND CARE DONE BLANCA WELL. PATIENT PICKED UP BY AMBULANCE ACCOMPANIED BY 2 EMT. PATIENT LEFT IN STABLE CONDITION. DESTINI (DTR) AWARE OF RETURN TO [facility].
== END 2019-05-04 16:49 | DRG 314 ==
LOC: ER 19:34 → TELE 21:34 → MED 21:37
PROVIDERS: ADMIT Internal Medicine; ATTEND Nurse Practitioner Acute Care
DX: T82.898A Other specified complication of vascular prosthetic devices, implants and grafts, initial encounter (principal); A41.9 Sepsis, unspecified organism; N18.6 End stage renal disease; G93.41 Metabolic encephalopathy; E43 Unspecified severe protein-calorie malnutrition; N17.0 Acute kidney failure with tubular necrosis; N39.0 Urinary tract infection, site not specified; I12.0 Hypertensive chronic kidney disease with stage 5 chronic kidney disease or end stage renal disease; Z16.12 Extended spectrum beta lactamase (ESBL) resistance; I82.503 Chronic embolism and thrombosis of unspecified deep veins of lower extremity, bilateral; Y71.2 Prosthetic and other implants, materials and accessory cardiovascular devices associated with adverse incidents; D63.8 Anemia in other chronic diseases classified elsewhere; Z93.6 Other artificial openings of urinary tract status; Z66 Do not resuscitate; E88.09 Other disorders of plasma-protein metabolism, not elsewhere classified; M62.50 Muscle wasting and atrophy, not elsewhere classified, unspecified site; Z68.23 Body mass index [BMI] 23.0-23.9, adult; B96.89 Other specified bacterial agents as the cause of diseases classified elsewhere; L89.152 Pressure ulcer of sacral region, stage 2; Z22.322 Carrier or suspected carrier of Methicillin resistant Staphylococcus aureus; C67.9 Malignant neoplasm of bladder, unspecified; Y83.8 Other surgical procedures as the cause of abnormal reaction of the patient, or of later complication, without mention of misadventure at the time of the procedure; Y92.129 Unspecified place in nursing home as the place of occurrence of the external cause; Z79.01 Long term (current) use of anticoagulants; Z99.2 Dependence on renal dialysis; B96.1 Klebsiella pneumoniae [K. pneumoniae] as the cause of diseases classified elsewhere
CPT/HCPCS: 36415; 71045-TC; 76770-TC; 80048-TC; 80053-TC; 80061-TC; 80202-TC; 81000-TC; 82728-TC; 83540-TC; 83605-TC; 83735-TC; 84100-TC; 84443-TC; 84484-TC; 85025-TC; 85730-TC; 87040-TC; 87081-TC; 87086-TC; 87186-TC; 97112-TC; 97530-TC; A4216; A6403; G0378; J1956; J2185; J2997; J3370; J3475; J7040; J7060

== ENCOUNTER 2019-05-05 13:00 | Emergency (ER) | payer MEDICARE, OTHER ==
[~2019-05-05] VITALS: Ht 162.6 cm; Wt 65.8 kg
--- NOTE | 2019-05-05 13:17 | NUR ---
cleve chief internal auditor at bedside for eval.
--- NOTE | 2019-05-05 13:46 | NUR ---
MID LINE AT BEDSIDE FOR MIDLINE PLACEMENT.
--- NOTE | 2019-05-05 14:28 | NUR ---
MIDLINE PLACED. R BRACHIAL 18G. VITALS STABLE D/C BACK TO FACILITY.
[2019-05-05 14:30] VITALS: BP 126/74
== END 2019-05-05 14:31 | disposition home or self-care (01) ==
LOC: ER 13:04
DX: Z45.2 Encounter for adjustment and management of vascular access device (principal); I10 Essential (primary) hypertension; Z85.51 Personal history of malignant neoplasm of bladder; Z98.890 Other specified postprocedural states; Z88.0 Allergy status to penicillin; Z79.899 Other long term (current) drug therapy; Z91.018 Allergy to other foods
CPT/HCPCS: 36410; 36569

== ENCOUNTER 2019-05-09 14:40 | Inpatient (IN) | payer MEDICARE, MEDICAID ==
[~2019-05-09] VITALS: Ht 162.6 cm; Wt 70.8 kg
--- NOTE | 2019-05-09 15:00 | NUR ---
BIB ems frm snf for abnormal labs, WBC 20. On room air, breathing evenly and unlabored. connected to the monitor and pulse ox. kept comfortable, will continue to monitor accordingly.
[2019-05-09] MEDS ORDERED: VANCOMYCIN 1 GM in IV D5W 250 ML IV ONE (15:30)
[2019-05-09] MEDS ORDERED: MEROPENEM 500 MG in IV NS 0.9% 50 ML IV ONE (15:30)
[2019-05-09 16:18] LABS: BASOPHILS # (AUTO) 0.3 /CMM (0.0-0.2); BASOPHILS % (AUTO) 0.6 % (0.0-2.0); EOSINOPHILS % (AUTO) 0.3 % (0.0-6.0); HEMATOCRIT 34 % (33-45); HEMOGLOBIN 10.2 g/dL (11.5-14.8); LYMPHOCYTES # (AUTO) 1.1 /CMM (0.8-4.8); LYMPHOCYTES % (AUTO) 2.6 % (20.0-44.0); MEAN CORPUSCULAR HGB CONC 30 g/dl (31.0-36.0); MEAN CORPUSCULAR VOLUME 87 fL (82-100); MONOCYTES # (AUTO) 1.2 /CMM (0.1-1.30); MONOCYTES % (AUTO) 2.7 % (2.0-12.0); NEUTROPHILS # (AUTO) 42.1 /CMM (1.8-8.9); NEUTROPHILS % (AUTO) 93.8 % (43.0-81.0); PLATELET COUNT (AUTO) 462 /CMM (150-450); RED BLOOD CELL COUNT(AUTO) 3.96 MIL/uL (4.0-5.2)
[2019-05-09 16:20] LABS: APPEARANCE,URINE Cloudy (CLEAR); BILIRUBIN,URINE Negative (NEGATIVE); BLOOD, URINE Large Ery/uL (NEGATIVE); COLOR,URINE Yellow (YELLOW); KETONES,URINE Trace (NEGATIVE); LEUKOCYTE ESTERASE ,URINE Moderate (NEGATIVE); NITRITE, URINE Positive (NEGATIVE); PH,URINE 6.5 (5.0-8.0); PROTEIN,URINE >=300 mg/dl (NEGATIVE); UGLUCOSE Negative (NEGATIVE); UROBILINOGEN,URINE 0.2 EU/dL (0.2)
[2019-05-09 16:26] LABS: BACTERIA,URINE Many /HPF (None Seen); COARSE GRANULAR CASTS,URINE Few /LPF (None Seen); RBC,URINE 21-50 /HPF (0-2); SQUAMOUS EPITHELIAL CELL,UR Few /HPF (None Seen); WBC,URINE TOO NUMEROUS TO COUN /HPF (0-3)
[2019-05-09 16:29] LABS: WHITE BLOOD COUNT (AUTO) 44.9 K/uL (4.3-11.0)
[2019-05-09] MEDS ORDERED: IV NS 0.9% 500 ML BAG IV ONE (16:30)
[2019-05-09] MEDS ORDERED: ALBUMIN 25% 12.5 GM/50 ML BOTTLE IV ONE (16:30)
[2019-05-09 16:31] LABS: CALCIUM, SERUM 9.6 mg/dL (8.5-10.1); CARBON DIOXIDE 19 mmol/L (21-32); CHLORIDE 106 mmol/L (98-107); CREATININE 2.9 mg/dL (0.6-1.3); GLUCOSE 67 mg/dL (74-106); POTASSIUM 5.1 mmol/L (3.5-5.1); SODIUM SERUM 137 mmol/L (136-145); UREA NITROGEN, BLOOD 46 mg/dL (7-18)
[2019-05-09] MEDS ORDERED: FLUC100T8 PO (16:31)
[2019-05-09] MEDS ORDERED: TAMS-12 PO (16:31)
[2019-05-09] MEDS ORDERED: COLI150V5 IJ (16:31)
[2019-05-09] MEDS ORDERED: DOCU-141 PO (16:31)
[2019-05-09] MEDS ORDERED: METO25TA6 PO (16:31)
[2019-05-09] MEDS ORDERED: ACET-868 PO (16:31)
[2019-05-09] MEDS ORDERED: DILT60TA3 PO (16:31)
[2019-05-09] MEDS ORDERED: CRAN3875 PO (16:31)
[2019-05-09] MEDS ORDERED: LEVO25TA7 PO (16:31)
[2019-05-09] MEDS ORDERED: MULT1TAB73 PO (16:31)
[2019-05-09 16:45] LABS: ALANINE AMINOTRANSFERASE 13 U/L (12-78); ALBUMIN 1.5 g/dL (3.4-5.0); ALKALINE PHOSPHATASE 93 U/L (46-116); ASPARTATE AMINOTRANSFERASE 31 U/L (15-37); BILIRUBIN,DIRECT 0.2 mg/dL (0.0-0.2); BILIRUBIN,TOTAL 0.5 mg/dL (0.2-1.0); TOTAL PROTEIN, SERUM 7.2 g/dL (6.4-8.2)
[2019-05-09 16:46] LABS: MAGNESIUM 1.8 mg/dL (1.8-2.4)
[2019-05-09 16:58] LABS: BAND % (MANUAL) 6 % (0.0-5.0); EOSINOPHILS % (MANUAL) 1 % (0-4); LYMPHOCYTES % (MANUAL) 3 % (16-48); MONOCYTES % (MANUAL) 1 % (0-11.0); NEUTROPHILS % (MANUAL) 89 (42-76)
[2019-05-09] MEDS ORDERED: PHENYLEPHRINE 20 MG in IV D5W 250 ML IV PRN (17:00)
--- NOTE | 2019-05-09 17:15 | NUR ---
report given to nba CUENCA for wilfred.
--- NOTE | 2019-05-09 18:05 | NUR ---
[facility] [phone]
--- NOTE | 2019-05-09 18:40 | NUR ---
wheeled patient via gurney accompanied by EMT and RN in no distress, RN at bedside to assume care.
--- NOTE | 2019-05-09 18:48 | NUR ---
CLINICAL REHABILITATION COORDINATOR NOTES RECEIVED PT FROM PEREZ DOVE RN VIA LANI, ASSISTED TO BED, MADE WARM AND COMFORTABLE, PT IS AWAKE, ALERT TO SELF, VERBALLY RESPONSIVE, DENIES PAIN OR SHORTNESS OF BREATH, ROOM SET UP ORIENTATION PROVIDED TO PT, NOTED PICC LINE AT RIGHT UPPER ARM AND BILATERAL NEPHROSTOMY TUBES, DRAINING CLEAR YELLOW URINE, VITALS TAKEN AND RECORDED, NSR ON THE TELE MONITOR WITH HR OF 84, AWAITING ADMITTING ORDERS FROM MD.
[2019-05-09 18:50] VITALS: BP 121/89
--- NOTE | 2019-05-09 19:02 | NUR ---
HEALTH ANALYST NOTES RECEIVED ORDER FROM ADMITTING MD, PT IS DNR, PT HAS POLST SIGNED BY HER MD AND POA.
[2019-05-09] MEDS ORDERED: DEXTROSE 50%-WATER 50 ML DISP.SYRIN IV ONE (19:30)
--- NOTE | 2019-05-09 19:30 | NUR ---
ENVIRONMENTAL AIDE NOTE RECEIVED PATIENT A/O X1. CURRENTLY PATIENT HAS NO SIGN OF DISTRESS JUST SEEMS CONFUSED. PATIENT IS ON 4L OF 02 WITH LABORED BREATHING AND RESPIRATION AT 24. ON THE MONITOR PATIENT SHOWS NSR WITH HR IN THE 80'S. BILATERAL NEPHROSTOMY INTACT WITH NO SIGNS OF OBSTRUCTION. ALL SAFETY PRECAUTIONS ARE APPLIED. BED ALARM ON AND WILL CONTINUE TO MONITOR PATIENT FOR BOOGIE.
[2019-05-09 20:00] VITALS: BP 143/79
[2019-05-09] MEDS ORDERED: ACETAMINOPHEN 325 MG TABLET PO PRN ×2 (20:00→20:30)
[2019-05-09] MEDS ORDERED: ONDANSETRON HCL/PF 4 MG/2 ML VIAL IVP PRN (20:00)
[2019-05-09] MEDS ORDERED: COLISTIMETHATE SODIUM 100 MG in IV NS 0.9% 50 ML IV SCH (20:00)
[2019-05-09] MEDS ORDERED: methylPREDNISolone SOD SUCC 40 MG/ML VIAL IV ONE (20:00)
[2019-05-09] MEDS ORDERED: FEE PK DOSING 1 MIN EA MC ONE (20:03)
[2019-05-09] MEDS: IV NS 0.9% 1,000 ML IV SCH (21:07)
[2019-05-09] MEDS: MEROPENEM 500 MG in IV NS 0.9% 50 ML IV SCH (21:11)
--- NOTE | 2019-05-09 22:16 | NUR ---
LICENSED SALES ASSISTANT NOTE HELD SCHEDULED DEXTROSE INJ AT 1930 PATIENTS BLOOD SUGAR LEVEL IS AT 89. CALLED DR BROOM MACHINE OPERATOR DR. ANAYA TO SEE IF HE WOULD LIKE TO CHANGE FLUIDS FROM NS TO D5 1/[address] SAID TO CONTINUE WITH NS.
[2019-05-09] MEDS: MUPIROCIN OINT 2% 22 GM TUBE SCH (22:30)
[2019-05-09] MEDS ORDERED: GENTAMICIN 80 MG/2 ML VIAL ONE (22:32)
[2019-05-09] MEDS: GENTAMICIN 80 MG in IV D5W 50 ML IV SCH (22:46)
[2019-05-09] MEDS: BLOOD SUGAR DIAGNOSTIC 1 EACH STRIP IN SCH (23:20)
[2019-05-10] VITALS: BP_SYST 119; BP_SYST 124; BP_DIAS 58; BP_DIAS 65
[2019-05-10 04:00] VITALS: BP 115/75
[2019-05-10 07:18] LABS: BASOPHILS # (AUTO) 0.1 /CMM (0.0-0.2); BASOPHILS % (AUTO) 0.2 % (0.0-2.0); CREATINE KINASE, TOTAL 40 U/L (26-192); HEMATOCRIT 30 % (33-45); LYMPHOCYTES # (AUTO) 0.4 /CMM (0.8-4.8); LYMPHOCYTES % (AUTO) 0.9 % (20.0-44.0); MEAN CORPUSCULAR HGB CONC 30 g/dl (31.0-36.0); MEAN CORPUSCULAR VOLUME 87 fL (82-100); MONOCYTES # (AUTO) 0.3 /CMM (0.1-1.30); MONOCYTES % (AUTO) 0.7 % (2.0-12.0); NEUTROPHILS # (AUTO) 48.4 /CMM (1.8-8.9); NEUTROPHILS % (AUTO) 98.2 % (43.0-81.0); PLATELET COUNT (AUTO) 439 /CMM (150-450); RED BLOOD CELL COUNT(AUTO) 3.49 MIL/uL (4.0-5.2)
[2019-05-10 07:22] LABS: WHITE BLOOD COUNT (AUTO) 49.3 K/uL (4.3-11.0)
[2019-05-10] MEDS: IPRATROPIUM NEB FS 0.5 MG/2.5 ML AMPUL.NEB NEB SCH ×4 (07:23→19:50)
[2019-05-10] MEDS: ALBUTEROL FS 2.5 MG/0.5 ML VIAL.NEB NEB SCH ×4 (07:23→19:50)
--- NOTE | 2019-05-10 07:30 | NUR ---
TERMINAL SYSTEM OPERATOR OPENING NOTES RECEIVED PATIENT IN BED, AOX1, CURRENTLY RUNNING TRI AT 40BPM. OXYGEN SATURATION IS IN THE HIGH 80S, MD WILL BE NOTIFIED. PATIENT IS ON 4L OXYGEN VIA NC, LABORED BREATHING AND RESPIRATIONS ARE NOTED. BILATERAL NEPHROSTOMY IS IN PLACE, REPORTED THAT IT WAS DISLODGED. FURTHER EVAL IS NEEDED, WILL FOLLOW UP WITH MD. SAFETY MAINTAINED, CALL LIGHT WITHIN REACH, WILL CONTINUE TO MONITOR.
[2019-05-10 07:32] LABS: ALANINE AMINOTRANSFERASE 13 U/L (12-78); ALKALINE PHOSPHATASE 78 U/L (46-116); ASPARTATE AMINOTRANSFERASE 24 U/L (15-37); BILIRUBIN,TOTAL 0.3 mg/dL (0.2-1.0); CARBON DIOXIDE 18 mmol/L (21-32); CHLORIDE 107 mmol/L (98-107); CREATININE 3.6 mg/dL (0.6-1.3); GLUCOSE 84 mg/dL (74-106); POTASSIUM 5.6 mmol/L (3.5-5.1); SODIUM SERUM 139 mmol/L (136-145); TOTAL PROTEIN, SERUM 6.3 g/dL (6.4-8.2); UREA NITROGEN, BLOOD 51 mg/dL (7-18)
--- NOTE | 2019-05-10 07:37 | NUR ---
DIE ATTACHING MACHINE TENDER CLOSING NOTE PATIENT IN BED WITH NO SIGN OF ANY DISTRESS. CONTINUES TO BREATH LABORED AND RESPIRATIONS AT 24. PATIENT IN MONITOR IS SINUS TRI IN THE 50'S. PATIENT IN BED WITH SAFETY PRECAUTIONS APPLIED. ENDORSED PATIENT TO MORNING SHIFT NURSE FOR BOOGIE.
[2019-05-10 07:45] LABS: ALBUMIN 1.4 g/dL (3.4-5.0); PHOSPHORUS 8.5 mg/dL (2.5-4.9)
[2019-05-10 08:00] VITALS: BP 115/91
[2019-05-10] MEDS: MEROPENEM 500 MG in IV NS 0.9% 50 ML IV SCH ×2 (08:01→20:12)
[2019-05-10] MEDS: BLOOD SUGAR DIAGNOSTIC 1 EACH STRIP IN SCH ×4 (08:02→21:42)
[2019-05-10 08:46] LABS: LYMPHOCYTES % (MANUAL) 1 % (16-48); MONOCYTES % (MANUAL) 2 % (0-11.0); NEUTROPHILS % (MANUAL) 97 (42-76)
[2019-05-10] MEDS ORDERED: DILTIAZEM HCL CD 120 MG PO SCH (09:00)
[2019-05-10] MEDS: APIXABAN 2.5 MG TABLET PO SCH ×3 (09:00→16:09)
[2019-05-10] MEDS: PANTOPRAZOLE 40 MG VIAL IV SCH (09:38)
[2019-05-10] MEDS: MUPIROCIN OINT 2% 22 GM TUBE SCH ×2 (09:39→20:17)
--- NOTE | 2019-05-10 10:00 | NUR ---
SPOKE TO DR MERCER REGARDING PATIENT HEART RATE BEING LOW. ORDERED TO STOP CARDIZEM, DID NOT ADMINISTER THE MORNING DOSE. WILL CONTINUE TO MONITOR CLOSELY AND REPORT ANY CHANGE.
[2019-05-10 12:00] VITALS: BP_SYST 116; BP_SYST 120; BP_DIAS 54; BP_DIAS 95
[2019-05-10] MEDS: LEVOTHYROXINE SODIUM 25 MCG TABLET PO SCH (13:53)
[2019-05-10] MEDS: SEVELAMER CARBONATE 800 MG TABLET PO SCH ×2 (13:53→18:08)
[2019-05-10] MEDS: DOCUSATE SODIUM 100 MG CAPSULE PO SCH (13:54)
[2019-05-10] MEDS: FLUCONAZOLE (100 MG) 100 MG TABLET PO SCH (13:54)
[2019-05-10] MEDS: TAMSULOSIN 0.4 MG CAP.SR.24H PO SCH (13:54)
--- NOTE | 2019-05-10 14:24 | NUR ---
HELD MORNING DOSE OF ELIQUIS DUE TO PATIENT NOT HAVING A SWALLOW EVAL DONE YET. WAS GOING TO ADMINISTER AT 2PM, SCANNED THE MED AND WAS ABOUT TO GIVE IT WHEN I GOT A CALL FROM RADIOLOGY TO HOLD THE MEDICATION. UNDID THE ADMINISTRATION IN EMAR AND DID NOT ADMINISTER THE MED. NOTIFIED THE MD, CLAUDIA PISANO. SHE ORDERED TO CANCEL THE X-RAY NEPHROSTOMY PLACEMENT SCHEDULED FOR TOMORROW AND KEEP ADMINISTERING THE ELIQUIS. WILL CONTINUE TO MONITOR.
[2019-05-10 16:00] VITALS: BP 117/97
[2019-05-10] MEDS: IV NS 0.9% 1,000 ML IV SCH ×2 (16:10→20:12)
--- NOTE | 2019-05-10 17:00 | NUR ---
SPOKE TO POWER OF HOME LENDING OFFICER OF THE PATIENT REGARDING PLAN OF CARE, PATIENT WANTS TO BE PLACE ON HOSPICE CARE AND DOES NOT WANT TO CONTINUE WITH THE NEPHROSTOMY PLACEMENT PROCEDURE. NOTIFIED HOSPITALIST CLAUDIA PISANO, WILL FOLLOW UP WITH CASE MANAGEMENT. CANCELED THE X RAY NEPHRO PROCEDURE SCHEDULED FOR TOMORROW PER MD ORDER. WILL CONTINUE TO MONITOR
[2019-05-10] MEDS: INSULIN REGULAR, HUMAN 100 UNIT/ML 3 ML VIAL SQ PRN (18:08)
--- NOTE | 2019-05-10 19:30 | NUR ---
EMULSIFICATION OPERATOR CLOSING NOTES PATIENT IN BED WITH NO ACUTE CHANGE TO PATIENT CONDITION DURING MY SHIFT. PATIENT IS NOTICEABLE MORE ALERT THAN IN THE MORNING. RESPIRATIONS ARE NOTICEABLY BETTER ALSO, RESPIRATION RATE AT 18. BREATHING IS LESS LABORED THAN IN THE MORNING. ON 3L OXYGEN VIA NC, SATURATION AT 98%. SAFETY WAS MAINTAINED, CALL LIGHT WITHIN REACH, ENDORSED TO ORDER PROCESSING SPECIALIST TO CONTINUE CARE.
--- NOTE | 2019-05-10 19:30 | NUR ---
SECONDARY TEACHER OPENING NOTE RECEIVED PATIENT IN BED. A/OX1. ON OXYGEN 2L/MIN VIA NASAL CANNULA. RESPIRATIONS ARE EVEN AND UNLABORED. NO S/S SOB NOTED. DENIES PAIN AT THIS TIME. EXTERNAL TELE MONITOR READS SR/ SB. IN NO APPARENT DISTRESS. IV ACCESS IN BENNY MIDLINE RUNNING NS@50ML/HR. LEFT AND RIGHT NEPHROSTOMY TUBE ARE PRESENT, DRAINING TO GRAVITY,URINE IS YELLOW AND CLEAR. BED IS LOW AND LOCKED, HOB ELEVATED IN SEMI FOWLERS, SIDE RAILS UP X2, BED ALARM ON. CALL LIGHT WITHIN REACH. WILL CONTINUE TO MONITOR.
[2019-05-10 20:00] VITALS: BP 74/33
--- NOTE | 2019-05-10 20:21 | NUR ---
LOGISTICS SUPPORT NOTE PATIENT IS NOT ON CONTACT ISOLATION, INFORMED CHARGE NURSE THAT THERE IS AN ORDER FOR CONTACT ISOLATION. WE VIEWED THE CHART TOGETHER. PATIENT A POSITIVE UA BUT NOTHING THAT NEEDS CONTACT ISOLATION PRECAUTIONS. MRSA CAME BACK NEGATIVE BUT PATIENT IS ON BACTROBAN. PATIENT REMAINS WITH NO ISOLATION AT THIS TIME.
--- NOTE | 2019-05-10 21:54 | NUR ---
HYDROELECTRIC OPERATOR NOTE CALLED LPN RN MD TO NOTIFY THAT THE BLOOD PRESSURE IS LOW 73/39 HR 83. VIEWED THE TREND OF THIS IS A NEW FINDING. MD TELEPHONE ORDERED 500ML NS BOLUS, AND CHECK MANUAL BP. READ BACK, NOTED AND CARRIED OUT.
--- NOTE | 2019-05-10 21:56 | NUR ---
ENGINEER/CONDUCTOR NOTE DID NOT ADMINISTERED INSULIN COVERAGE FOR 2200 ACCU CHECK BS 136 D/T PATIENT ALREADY HAS LOW BP. WILL CONTINUE TO MONITOR.
[2019-05-10] MEDS ORDERED: IV NS 0.9% 500 ML IV ONE (22:00)
[2019-05-11] VITALS: BP 74/39
[2019-05-11 04:00] VITALS: BP 73/37
[2019-05-11 06:49] LABS: BASOPHILS # (AUTO) 0.1 /CMM (0.0-0.2); BASOPHILS % (AUTO) 0.2 % (0.0-2.0); HEMATOCRIT 26 % (33-45); HEMOGLOBIN 8.2 g/dL (11.5-14.8); LYMPHOCYTES # (AUTO) 0.9 /CMM (0.8-4.8); LYMPHOCYTES % (AUTO) 2.3 % (20.0-44.0); MEAN CORPUSCULAR HGB CONC 31 g/dl (31.0-36.0); MEAN CORPUSCULAR VOLUME 84 fL (82-100); MONOCYTES # (AUTO) 0.6 /CMM (0.1-1.30); MONOCYTES % (AUTO) 1.5 % (2.0-12.0); NEUTROPHILS # (AUTO) 36.8 /CMM (1.8-8.9); PLATELET COUNT (AUTO) 382 /CMM (150-450); RED BLOOD CELL COUNT(AUTO) 3.13 MIL/uL (4.0-5.2)
[2019-05-11 07:01] LABS: WHITE BLOOD COUNT (AUTO) 38.4 K/uL (4.3-11.0)
[2019-05-11 07:13] LABS: CARBON DIOXIDE 17 mmol/L (21-32); CHLORIDE 109 mmol/L (98-107); CREATININE 3.9 mg/dL (0.6-1.3); GLUCOSE 108 mg/dL (74-106); MAGNESIUM 1.7 mg/dL (1.8-2.4); PHOSPHORUS 6.3 mg/dL (2.5-4.9); POTASSIUM 5.1 mmol/L (3.5-5.1); SODIUM SERUM 141 mmol/L (136-145); UREA NITROGEN, BLOOD 58 mg/dL (7-18)
--- NOTE | 2019-05-11 07:25 | NUR ---
RN OPENING NOTES RECEIVED PATIENT IN BED, A/O X2. VERBALLY RESPONSIVE AND ABLE TO MAKE NEEDS KNOWN. DENIES ANY PAIN OR DISCOMFORT AT THE MOMENT. IV ACCESS ON BENNY MIDLINE RUNNING NS @50ML. NO SIGNS OF INFILTRATION NOTED. NEPHROSTOMY TUBE DRAINING VIA GRAVITY , URINE IS COLOR YELLOW AND CLEAR.BED IN LOW POSITION , LOCKED. CALL LIGHT WITHIN REACH. WILL CONTINUE TO MONITOR
--- NOTE | 2019-05-11 07:28 | NUR ---
CARGO SERVICE AGENT CLOSING NOTE PATIENT IN BED. A/OX1. REMAINS ON OXYGEN 2L/MIN VIA NASAL CANNULA. RESPIRATIONS ARE EVEN AND UNLABORED. NO SOB NOTED. NO C/O PAIN THROUGHOUT SHIFT. EXTERNAL TELE MONITOR READS SR/ SB. NO DISTRESS NOTED. DID GIVE IV BOLUS D/T LOW BP. IV ACCESS MAINTAINED IN BENNY MIDLINE RUNNING NS@50ML/HR. LEFT AND RIGHT NEPHROSTOMY TUBE ARE MAINTAINED, DRAINING TO GRAVITY,URINE IS YELLOW AND CLEAR, NO OUTPUT NOTES. BED REMAINS LOW AND LOCKED, HOB ELEVATED IN SEMI FOWLERS, SIDE RAILS UP X2, BED ALARM ON. CALL LIGHT WITHIN REACH. WILL ENDORSE TO NEXT SHIFT.
[2019-05-11] MEDS: ALBUTEROL FS 2.5 MG/0.5 ML VIAL.NEB NEB SCH ×4 (07:53→19:27)
[2019-05-11] MEDS: IPRATROPIUM NEB FS 0.5 MG/2.5 ML AMPUL.NEB NEB SCH ×4 (07:53→19:27)
[2019-05-11 08:00] VITALS: BP 87/50
[2019-05-11] MEDS: BLOOD SUGAR DIAGNOSTIC 1 EACH STRIP IN SCH ×4 (08:02→22:00)
[2019-05-11] MEDS: MEROPENEM 500 MG in IV NS 0.9% 50 ML IV SCH (08:55)
[2019-05-11] MEDS: SEVELAMER CARBONATE 800 MG TABLET PO SCH ×3 (08:56→17:17)
[2019-05-11 08:58] LABS: BAND % (MANUAL) 7 % (0.0-5.0); LYMPHOCYTES % (MANUAL) 2 % (16-48); MONOCYTES % (MANUAL) 1 % (0-11.0); NEUTROPHILS % (MANUAL) 90 (42-76)
[2019-05-11] MEDS: TAMSULOSIN 0.4 MG CAP.SR.24H PO SCH (10:02)
[2019-05-11] MEDS: FLUCONAZOLE (100 MG) 100 MG TABLET PO SCH (10:03)
[2019-05-11] MEDS: DOCUSATE SODIUM 100 MG CAPSULE PO SCH (10:03)
[2019-05-11] MEDS: PANTOPRAZOLE 40 MG VIAL IV SCH (10:03)
[2019-05-11] MEDS: LEVOTHYROXINE SODIUM 25 MCG TABLET PO SCH (10:03)
[2019-05-11] MEDS: APIXABAN 2.5 MG TABLET PO SCH ×2 (10:08→17:18)
[2019-05-11] MEDS: MUPIROCIN OINT 2% 22 GM TUBE SCH ×2 (10:22→22:09)
[2019-05-11 11:16] LABS: *SPE A/G RATIO 0.5 (0.7-1.7); *SPE ALBUMIN 1.9 g/dL (2.9-4.4); *SPE ALPHA-1-GLOBULIN 0.5 g/dL (0.0-0.4); *SPE ALPHA-2-GLOBULIN 0.7 g/dL (0.4-1.0); *SPE BETA GLOBULIN 0.9 g/dL (0.7-1.3); *SPE M-SPIKE Not Observed g/dL (Not Observed); PTH, INTACT 13 pg/mL (15-65)
[2019-05-11 12:00] VITALS: BP 95/53
[2019-05-11] MEDS ORDERED: Magnesium 1 GM/2 ML VIAL IV ONE (12:00)
[2019-05-11] MEDS ORDERED: MGSO4/D5W 100 ML IV SCH (12:30)
[2019-05-11] MEDS ORDERED: IV NS 0.9% 1,000 ML IV STA (13:47)
[2019-05-11 16:00] VITALS: BP 89/50
[2019-05-11] MEDS ORDERED: IV NS 0.9% 500 ML IV ONE (17:00)
--- NOTE | 2019-05-11 18:00 | NUR ---
RN CLOSING NOTES PATIENT IN BED, RESTING COMFORTABLY. IV MIDLINE INTACT, PATENT AND FLUSHED WELL. NO SOB NOTED, RESPIRATION EVEN AND UNLABORED. WAS GIVEN IV NS TOTAL 1500ML BOLUS. NEPHROSTOMY L/R TUBE DRAINING VIA GRAVITY. DENIES ANY PAIN OR DISCOMFORT AT THE MOMENT. ALL DUE MEDS GIVEN AND TOLERATED WELL. ALL NEEDS MET. ENDORSED TO PM RN
[2019-05-11 20:00] VITALS: BP 95/52
[2019-05-11] MEDS: INSULIN REGULAR, HUMAN 100 UNIT/ML 3 ML VIAL SQ PRN (22:08)
[2019-05-11] MEDS: GENTAMICIN 80 MG in IV D5W 50 ML IV SCH (22:09)
--- NOTE | 2019-05-11 22:28 | NUR ---
RN NOTES: PATIENT'S BLOOD SUGAR FINGERSTICK IS 100. NO INSULIN GIVEN. PATIENT'S SACRAL AND BILATERAL HEELS HAS BLANCHABLE REDNESS, MEPILEX PLACED OVER THE AREAS AND HEELS OFFLOADED WITH 2 PILLOWS. PATIENT IS A/O X4 WITH O2 AT 3L/MIN. BED ALARM ON. BED IN LOWEST AND LOCKED POSITION. CALL LIGHT WITHIN REACH.
--- NOTE | 2019-05-11 22:40 | NUR ---
PATIENT TURNED TO THE LEFT SIDE WITH PILLOW.
[2019-05-11] MEDS: IV NS 0.9% 1,000 ML IV SCH (23:15)
[2019-05-12 04:00] VITALS: BP 106/61
[2019-05-12 04:38] VITALS: BP 106/61
--- NOTE | 2019-05-12 05:31 | NUR ---
RIGHT NEPHROSTOMY TUBE SITE IS LEAKING, MEPILEX DRESSING CHANGED. OUTPUT IS 90ML,CLOUDY YELLOW OUTPUT., TUBE IS INTACT. LEFT NEPHROSTOMY TUBE IS INTACT, NO LEAKING SITE, OUTPUT IS 30ML CLEAR YELLOW OUTPUT.
--- NOTE | 2019-05-12 05:50 | NUR ---
WITH BILATERAL BREASTFOLDS SKIN IRRITATIONS.
[2019-05-12] MEDS: BLOOD SUGAR DIAGNOSTIC 1 EACH STRIP IN SCH ×4 (07:30→22:24)
[2019-05-12] MEDS: ALBUTEROL FS 2.5 MG/0.5 ML VIAL.NEB NEB SCH ×4 (07:40→19:24)
[2019-05-12] MEDS: IPRATROPIUM NEB FS 0.5 MG/2.5 ML AMPUL.NEB NEB SCH ×4 (07:40→19:24)
[2019-05-12 08:00] VITALS: BP 124/72
[2019-05-12] MEDS: TAMSULOSIN 0.4 MG CAP.SR.24H PO SCH (09:09)
[2019-05-12] MEDS: LEVOTHYROXINE SODIUM 25 MCG TABLET PO SCH (09:09)
[2019-05-12] MEDS: FLUCONAZOLE (100 MG) 100 MG TABLET PO SCH (09:09)
[2019-05-12] MEDS: SEVELAMER CARBONATE 800 MG TABLET PO SCH ×3 (09:09→18:18)
[2019-05-12] MEDS: PANTOPRAZOLE 40 MG VIAL IV SCH (09:10)
[2019-05-12] MEDS: DOCUSATE SODIUM 100 MG CAPSULE PO SCH (09:10)
[2019-05-12] MEDS: MUPIROCIN OINT 2% 22 GM TUBE SCH ×2 (09:10→22:26)
--- NOTE | 2019-05-12 11:25 | NUR ---
WOUND CARE CONSULT: PT PRESENTS WITH INCONTINENCE ASSOCIATED SKIN DAMAGE TO SACRAL/RT BUTTOCK AREA, SKIN DISCOLORATION TO BACK AND NEPHROSTOMY TUBES (BILATERAL), PRESENT ON ADMISSION. RECOMMENDATIONS MADE FOR SKIN PROTECTION AND SKIN CARE. DISCUSSED WITH NURSING STAFF. [facility] CURRENT JERARDO SCORE IS 15. Addendum: 05/12/19 at 1128 by JC KILLIAN Amended: Links added. Addendum: 05/12/19 at 1128 by JC MARTINEZU SOME LEAKAGE NOTED AROUND RT NEPRHOSTOMY TUBE. RN TO DISCUSS WITH . SKIN TO BE KEPT CLEAN AND DRY. DISCUSSED WITH NURSING STAFF.
[2019-05-12] MEDS: APIXABAN 2.5 MG TABLET PO SCH (11:26)
[2019-05-12] MEDS ORDERED: Z GUARD REMEDY 2 OZ OINT TP PRN (11:30)
[2019-05-12 12:00] VITALS: BP 116/76
[2019-05-12] MEDS: Z GUARD REMEDY 2 OZ OINT TP SCH (12:24)
[2019-05-12] MEDS ORDERED: ALBU2.5V13 NEB (12:53)
[2019-05-12] MEDS ORDERED: IPRA0.2S9 NEB (12:54)
[2019-05-12] MEDS ORDERED: MUPI22OI7 (12:54)
[2019-05-12] MEDS ORDERED: SEVE800T7 PO (12:54)
[2019-05-12 16:00] VITALS: BP 110/68
--- NOTE | 2019-05-12 18:45 | NUR ---
RN closing note: Patient began to have elevated HR in the 150's. apartment maintenance team paged to inform. Will endorse to night nurse to follow. Patient has been with VSS stable up to this time. No s/s of distress up to now. She is alert, responsive to verbal stimuli. Appetite poor. Denies pain. Wound care eval complete. Will be seen by nephrology for regarding her right nephrostomy tube. Plan is to replace next week.
[2019-05-12 20:00] VITALS: BP 102/63
--- NOTE | 2019-05-12 20:01 | NUR ---
RECEIVED WITH HR 140/MIN AND DAY SHIFT RN HAS PAGED THE HYDROMETER CALIBRATOR FORTHE HEART RATE 15/MIN. MESSAGE LEFT WITH THE EXCHANGE. AWAITING RESPONSE
--- NOTE | 2019-05-12 20:07 | NUR ---
DR ANAYA CALLED BACK AND INFORMED THAT THE PATIENT,S HEART RATE 150 AND PRESENTLYN 160/MIN. EKG STAT DONE. [facility] ORDERS FOR RAPID RESPONSE TO CHECK WHAT THE PRIOBLEM IS. EKG ORDERED STAT.
--- NOTE | 2019-05-12 20:13 | NUR ---
CHARGE NURSE ORDERED TO WAIT FOR THE EKG TO BE DONE.
--- NOTE | 2019-05-12 20:39 | NUR ---
EKG RESULT ATRUAL FIBRILLATION WITH RAPID VENTRICULAR RESPONSE.CHARGE NURSE WILL TALK TO DR ANAYA ,
--- NOTE | 2019-05-12 21:25 | NUR ---
spoke to Deandra Carmona , aware of EKG result. Also made him aware that patient was on Eliquis but d.cd for plan of nephrostomy tube replacement early next week. HR now @106. NNO
[2019-05-13] VITALS: BP 103/66
[2019-05-13 04:00] VITALS: BP 104/57
[2019-05-13] MEDS: ALBUTEROL FS 2.5 MG/0.5 ML VIAL.NEB NEB SCH ×4 (07:35→21:06)
[2019-05-13] MEDS: IPRATROPIUM NEB FS 0.5 MG/2.5 ML AMPUL.NEB NEB SCH ×4 (07:35→21:06)
--- NOTE | 2019-05-13 07:35 | NUR ---
RN OPENING NOTE: PATIENT IN BED. AWAKE, ALERT AND ORIENTED X3. ON ROOM AIR AND TOLERATING WELL. O2 SAT AT >92%. NO SOB, NO RESPIRATORY DISTRESS NOTED. BREATHING EQUAL AND UNLABORED. ON CARDIAC MONITORING WITH SINUS RHYTHM NOTED. IV SITE CLEAN, DRY AND INTACT. OFFERED IVF ORDERED AND REFUSED. CALL LIGHT IN REACH. BED LOCKED, LOW AND AT SEMI-RICHARD'S POSITION. SIDERAILS UP X3. NO PAIN NOTED, NO CHEST PAIN REPORTED. WILL CONTINUE TO MONITOR. Addendum: 05/13/19 at 2041 by FOUZIA BRENNER RN PATIENT ON CONTACT ISOLATION
[2019-05-13 08:00] VITALS: BP 130/72
--- NOTE | 2019-05-13 08:00 | NUR ---
RN NOTE: PATIENT BLOOD SUGAR WAS 56, INFORMED PATIENT THAT D50 INJECTION TO BE GIVEN BUT PATIENT REQUESTED APPLE JUICE INSTEAD.
[2019-05-13] MEDS: DEXTROSE 50%-WATER 50 ML DISP.SYRIN IV PRN ×2 (08:21→17:41)
[2019-05-13] MEDS: BLOOD SUGAR DIAGNOSTIC 1 EACH STRIP IN SCH ×4 (08:21→21:19)
--- NOTE | 2019-05-13 08:30 | NUR ---
RN NOTE: NOTED PATIENT TO NOT HAVE TAKEN ONLY 2 FL. OZ OF JUICE. OFFERED D50 INJECTION AND EXPLAINED RATIONALE. PATIENT ACCEPTED AND MEDICATION WAS ADMINISTERED.
[2019-05-13 08:42] LABS: CALCIUM, SERUM 8.1 mg/dL (8.5-10.1); CARBON DIOXIDE 17 mmol/L (21-32); CHLORIDE 113 mmol/L (98-107); CREATININE 3.4 mg/dL (0.6-1.3); GLUCOSE 55 mg/dL (74-106); POTASSIUM 4.5 mmol/L (3.5-5.1); SODIUM SERUM 144 mmol/L (136-145); UREA NITROGEN, BLOOD 57 mg/dL (7-18)
[2019-05-13] MEDS: PANTOPRAZOLE 40 MG VIAL IV SCH (09:46)
[2019-05-13] MEDS: SEVELAMER CARBONATE 800 MG TABLET PO SCH ×3 (09:47→17:40)
[2019-05-13] MEDS: FLUCONAZOLE (100 MG) 100 MG TABLET PO SCH (09:47)
[2019-05-13] MEDS: DOCUSATE SODIUM 100 MG CAPSULE PO SCH (09:47)
[2019-05-13] MEDS: LEVOTHYROXINE SODIUM 25 MCG TABLET PO SCH (09:48)
[2019-05-13] MEDS: TAMSULOSIN 0.4 MG CAP.SR.24H PO SCH (09:48)
[2019-05-13] MEDS: Z GUARD REMEDY 2 OZ OINT TP SCH (09:49)
[2019-05-13] MEDS: MUPIROCIN OINT 2% 22 GM TUBE SCH ×2 (10:00→21:28)
[2019-05-13 12:00] VITALS: BP 126/70
[2019-05-13] MEDS ORDERED: INSULIN NPH, HUMAN ISOPHANE 100 UNIT/ML VIAL SQ ONE (12:30)
--- NOTE | 2019-05-13 13:00 | NUR ---
RN NOTE: CONFIRMED WITH CLAUDIA PISANO THAT IT'S OK TO USE BLOOD SAMPLE FROM AM FOR ADDITIONAL LABS ORDERED. AGREED
[2019-05-13 13:17] LABS: PHOSPHORUS 5.2 mg/dL (2.5-4.9)
[2019-05-13 14:49] LABS: BASOPHILS % (AUTO) 0.4 % (0.0-2.0); EOSINOPHILS % (AUTO) 1.5 % (0.0-6.0); HEMATOCRIT 30 % (33-45); HEMOGLOBIN 9.4 g/dL (11.5-14.8); LYMPHOCYTES # (AUTO) 1.2 /CMM (0.8-4.8); LYMPHOCYTES % (AUTO) 8.6 % (20.0-44.0); MEAN CORPUSCULAR HGB CONC 31 g/dl (31.0-36.0); MEAN CORPUSCULAR VOLUME 84 fL (82-100); MONOCYTES # (AUTO) 0.4 /CMM (0.1-1.30); MONOCYTES % (AUTO) 3.3 % (2.0-12.0); NEUTROPHILS # (AUTO) 11.7 /CMM (1.8-8.9); NEUTROPHILS % (AUTO) 86.2 % (43.0-81.0); PLATELET COUNT (AUTO) 362 /CMM (150-450); RED BLOOD CELL COUNT(AUTO) 3.64 MIL/uL (4.0-5.2); WHITE BLOOD COUNT (AUTO) 13.5 K/uL (4.3-11.0)
[2019-05-13 16:00] VITALS: BP 133/76
--- NOTE | 2019-05-13 19:40 | NUR ---
RN CLOSING NOTE: PATIENT REMAINS IN BED. AWAKE, ALERT AND ORIENTED X2. ON ROOM AIR AND TOLERATING WELL. O2 SAT AT >92%. NO SOB, NO RESPIRATORY DISTRESS NOTED. BREATHING EQUAL AND UNLABORED. ON CARDIAC MONITORING WITH SINUS RHYTHM NOTED. IV SITE CLEAN, DRY AND INTACT. IVF ORDERED STILL REFUSED. 2 EPISODES OF BLOOD SUGAR <60 NOTED, INTERVENTIONS DONE AND BLOOD SUGAR INCREASED AFTER REASSESSMENT. CALL LIGHT IN REACH. BED LOCKED, LOW AND AT SEMI-RICHARD'S POSITION. SIDERAILS UP X3. NO PAIN NOTED, NO CHEST PAIN REPORTED. PATIENT AWAITING PICK-UP FOR CT SCAN. ENDORSED TO ONCOMING SHIFT FOR BOOGIE. Addendum: 05/13/19 at 2041 by FOUZIA BRENNER RN PATIENT ON CONTACT ISOLATION
[2019-05-13 20:00] VITALS: BP 108/68
--- NOTE | 2019-05-13 20:00 | NUR ---
[employer] ENGAGEMENT PLANNING OPERATOR NOTES RECEIVED PATIENT AWAKE IN BED WITH NO DISTRESS NOTED. CALL LIGHT WITHIN REACH. NO C/O PAIN OR DISCOMFORT. PERIPHERAL LINE INTACT AND PATENT. RUC PERMA CATH INTACT WITH NO REDNESS, BLEEDING, OR SWELLING NOTED. BILATERAL NEPHROSTOMY TUBES INTACT AND PATENT. CONTACT ISOLATION OBSERVED AND MAINTAINED. BED IN LOW LOCK SETTING WITH BED ALARM ON AND FUNCTIONING PROPERLY. ALL BELONGINGS KEPT NEAR BEDSIDE. WILL CONTINUE TO MONITOR.
[2019-05-13] MEDS: IV NS 0.9% 1,000 ML IV PRN (20:51)
[2019-05-13] MEDS: GENTAMICIN 80 MG in IV D5W 50 ML IV SCH (21:19)
[2019-05-14] VITALS: BP 100/68
[2019-05-14 04:00] VITALS: BP 99/57
[2019-05-14] MEDS: BLOOD SUGAR DIAGNOSTIC 1 EACH STRIP IN SCH ×4 (06:31→22:27)
--- NOTE | 2019-05-14 06:49 | NUR ---
SERVICE DOG TRAINER NOTES PATIENT ASLEEP IN BED WITH NO DISTRESS NOTED. CALL LIGHT WITHIN REACH. ALL DUE MEDS GIVEN ORDERED WITH NO ASE. NO C/O PAIN OR DISCOMFORT. BENNY MIDLINE INTACT AND PATENT. STAN NEPHROSTOMY TUBES IN PLACE. LEFT NEPHROSTOMY DRAINED 125ML CLOUDY YELLOW URINE, NO FOUL ODOR NOTED. BED IN LOW LOCK SETTING WITH BED ALARM ON AND FUNCTIONING PROPERLY. ROOM FREE OF CLUTTER AND BELONGINGS KEPT NEAR BEDSIDE. WILL ENDORSE TO ONCOMING SHIFT.
--- NOTE | 2019-05-14 07:34 | NUR ---
UTILITY WORKER FORGE OPENING NOTES RECEIVED PATIENT IN BED SLEEPING COMFORTABLY. PATIENT IN NO ACUTE DISTRESS. NO SOB NOTED. PATIENT BREATHING IS EVEN AND UNLABORED. PATIENT ON CARDIAC MONITORING READING SINUS RHYTHM HR 90. BILATERAL NEPHROSTOMY TUBES IN PLACE. PATIENT BED IS LOCKED AND IN LOWEST POSITION. CALL LIGHT WITHIN REACH. WILL CONTINUE TO MONITOR.
[2019-05-14 08:00] VITALS: BP 107/57
[2019-05-14] MEDS: IPRATROPIUM NEB FS 0.5 MG/2.5 ML AMPUL.NEB NEB SCH ×4 (08:04→19:32)
[2019-05-14] MEDS: ALBUTEROL FS 2.5 MG/0.5 ML VIAL.NEB NEB SCH ×4 (08:04→19:32)
[2019-05-14 08:06] LABS: BASOPHILS % (AUTO) 0.2 % (0.0-2.0); EOSINOPHILS % (AUTO) 2.3 % (0.0-6.0); HEMATOCRIT 28 % (33-45); HEMOGLOBIN 8.8 g/dL (11.5-14.8); LYMPHOCYTES # (AUTO) 0.9 /CMM (0.8-4.8); LYMPHOCYTES % (AUTO) 9.9 % (20.0-44.0); MEAN CORPUSCULAR HGB CONC 31 g/dl (31.0-36.0); MEAN CORPUSCULAR VOLUME 84 fL (82-100); MONOCYTES # (AUTO) 0.3 /CMM (0.1-1.30); MONOCYTES % (AUTO) 3.8 % (2.0-12.0); NEUTROPHILS # (AUTO) 7.4 /CMM (1.8-8.9); NEUTROPHILS % (AUTO) 83.8 % (43.0-81.0); PLATELET COUNT (AUTO) 284 /CMM (150-450); RED BLOOD CELL COUNT(AUTO) 3.39 MIL/uL (4.0-5.2); WHITE BLOOD COUNT (AUTO) 8.9 K/uL (4.3-11.0)
[2019-05-14] MEDS: LEVOTHYROXINE SODIUM 25 MCG TABLET PO SCH (08:08)
[2019-05-14] MEDS: PANTOPRAZOLE 40 MG VIAL IV SCH (08:08)
[2019-05-14] MEDS: DOCUSATE SODIUM 100 MG CAPSULE PO SCH (08:09)
[2019-05-14] MEDS: TAMSULOSIN 0.4 MG CAP.SR.24H PO SCH (08:09)
[2019-05-14] MEDS: FLUCONAZOLE (100 MG) 100 MG TABLET PO SCH (08:09)
[2019-05-14] MEDS: SEVELAMER CARBONATE 800 MG TABLET PO SCH ×3 (08:09→17:29)
[2019-05-14] MEDS: MUPIROCIN OINT 2% 22 GM TUBE SCH ×2 (08:11→21:15)
[2019-05-14] MEDS: Z GUARD REMEDY 2 OZ OINT TP SCH (08:12)
[2019-05-14 08:16] LABS: CALCIUM, SERUM 8.1 mg/dL (8.5-10.1); CARBON DIOXIDE 19 mmol/L (21-32); CHLORIDE 114 mmol/L (98-107); CREATININE 2.8 mg/dL (0.6-1.3); GLUCOSE 64 mg/dL (74-106); POTASSIUM 4.3 mmol/L (3.5-5.1); SODIUM SERUM 145 mmol/L (136-145); UREA NITROGEN, BLOOD 51 mg/dL (7-18)
[2019-05-14 08:17] LABS: MAGNESIUM 1.7 mg/dL (1.8-2.4); PHOSPHORUS 4.2 mg/dL (2.5-4.9)
[2019-05-14] MEDS: IV NS 0.9% 1,000 ML IV PRN (10:51)
--- NOTE | 2019-05-14 11:28 | NUR ---
SAND ANALYST NOTE BLOOD SUGAR WAS 62. GAVE APPLE JUICE AND RECHECKED 10 MINS AFTER. BLOOD SUGAR IS 68. PATIENT IN NO ACUTE DISTRESS. LUNCH GIVEN AT THIS TIME. WILL CONTINUE TO MONITOR.
[2019-05-14 12:00] VITALS: BP 134/67
[2019-05-14] MEDS ORDERED: IV D5/ 0.9% NACL 1,000 ML IV ONE (14:30)
[2019-05-14 16:00] VITALS: BP 111/54
--- NOTE | 2019-05-14 16:59 | NUR ---
HOMEMAKING REHABILITATION CONSULTANT NOTE BLOOD SUGAR IS 90. NO INSULIN COVERAGE GIVEN PER PROTOCOL.
--- NOTE | 2019-05-14 18:58 | NUR ---
LOGISTICS PLANNING ENGINEER CLOSING NOTED PATIENT IN BED RESTING COMFORTABLY. PATIENT IN NO ACUTE DISTRESS. NO SOB NOTED. PATIENT BREATHING IS EVEN AND UNLABORED. PATIENT BILATERAL NEPHROSTOMY TUBES IN PLACE. LEFT NEPHROSTOMY DRAINED 100 ML CLOUD YELLOW URINE. PATIENT KEPT CLEAN AND DRY THROUGHOUT SHIFT. PATIENT TURNED AND REPOSITIONED Q2H. EXTREMITIES OFFLOADED ON PILLOWS. PATIENT TO BE NPO AFTER MIDNIGHT. PATIENT ON CARDIAC MONITORING READING SINUS TACHYCARDIA HR 105. PATIENT BED IS LOCKED AND IN LOWEST POSITION. CALL LIGHT WITHIN REACH. WILL ENDORSE CARE TO PM SHIFT FOR BOOGIE. Addendum: 05/14/19 at 1908 by LORIN HIDALGO RN LOGISTICS PLANNING ENGINEER CLOSING NOTES PATIENT IN BED RESTING COMFORTABLY. PATIENT IN NO ACUTE DISTRESS. NO SOB NOTED. PATIENT BREATHING IS EVEN AND UNLABORED. PATIENT BILATERAL NEPHROSTOMY TUBES IN PLACE. LEFT NEPHROSTOMY DRAINED 100 ML CLOUD YELLOW URINE. PATIENT KEPT CLEAN AND DRY THROUGHOUT SHIFT. PATIENT TURNED AND REPOSITIONED Q2H. EXTREMITIES OFFLOADED ON PILLOWS. PATIENT TO BE NPO AFTER MIDNIGHT. PATIENT ON CARDIAC MONITORING READING SINUS TACHYCARDIA HR 105. PATIENT BED IS LOCKED AND IN LOWEST POSITION. CALL LIGHT WITHIN REACH. WILL ENDORSE CARE TO PM SHIFT FOR BOOGIE.
--- NOTE | 2019-05-14 19:35 | NUR ---
FURNITURE SALES CONSULTANT OPENING NOTES, RECEIVED PATIENT IN BED RESTING COMFORTABLY. PATIENT IS A/O X3. PATIENT IN NO ACUTE DISTRESS. NO SOB NOTED. PATIENT BREATHING IS EVEN AND UNLABORED. PATIENT ON CARDIAC MONITORING READING ST HR 100. BILATERAL NEPHROSTOMY TUBES IN PLACE. PATIENT IS ON NPO AFTER MID NIGHT. PATIENT BED IS LOCKED AND IN LOWEST POSITION. CALL LIGHT WITHIN REACH. WILL CONTINUE TO MONITOR.
[2019-05-14 20:00] VITALS: BP 108/69
[2019-05-15] VITALS: BP 120/69
--- NOTE | 2019-05-15 02:40 | NUR ---
RN NOTES, RECEIVED PATIENT FROM JOELLEN JONES FOR CONTINUATION OF CARE, PATIENT SLEEPING AT THIS TIME, BUT AROUSES EASILY TO VERBAL STIMULI, BREATHING EVEN AND UNLABORED, NO SOB/ACUTE DISTRESS NOTED, WILL CONTINUE TO MONITOR CLOSELY.
[2019-05-15 04:00] VITALS: BP 125/57
[2019-05-15 06:41] LABS: BASOPHILS # (AUTO) 0.1 /CMM (0.0-0.2); BASOPHILS % (AUTO) 0.6 % (0.0-2.0); EOSINOPHILS % (AUTO) 2.3 % (0.0-6.0); HEMATOCRIT 31 % (33-45); HEMOGLOBIN 9.5 g/dL (11.5-14.8); LYMPHOCYTES % (AUTO) 10.4 % (20.0-44.0); MEAN CORPUSCULAR HGB CONC 31 g/dl (31.0-36.0); MEAN CORPUSCULAR VOLUME 84 fL (82-100); MONOCYTES # (AUTO) 0.5 /CMM (0.1-1.30); NEUTROPHILS # (AUTO) 7.9 /CMM (1.8-8.9); NEUTROPHILS % (AUTO) 81.7 % (43.0-81.0); PLATELET COUNT (AUTO) 244 /CMM (150-450); RED BLOOD CELL COUNT(AUTO) 3.65 MIL/uL (4.0-5.2); WHITE BLOOD COUNT (AUTO) 9.7 K/uL (4.3-11.0)
[2019-05-15 06:55] LABS: CALCIUM, SERUM 7.9 mg/dL (8.5-10.1); CARBON DIOXIDE 19 mmol/L (21-32); CHLORIDE 113 mmol/L (98-107); CREATININE 2.4 mg/dL (0.6-1.3); GLUCOSE 77 mg/dL (74-106); MAGNESIUM 1.4 mg/dL (1.8-2.4); PHOSPHORUS 4.1 mg/dL (2.5-4.9); POTASSIUM 4.5 mmol/L (3.5-5.1); SODIUM SERUM 142 mmol/L (136-145); UREA NITROGEN, BLOOD 44 mg/dL (7-18)
--- NOTE | 2019-05-15 07:16 | NUR ---
RN NOTES, no significant change in condition throughout the night, consent signed per her, called Kris Tomlin decision maker and per her, patient already gave verbal consent and she can sign consent, will endorse continuity of care to oncoming nurse.
[2019-05-15] MEDS: BLOOD SUGAR DIAGNOSTIC 1 EACH STRIP IN SCH ×4 (07:30→22:46)
[2019-05-15] MEDS: ALBUTEROL FS 2.5 MG/0.5 ML VIAL.NEB NEB SCH ×4 (07:34→19:52)
[2019-05-15] MEDS: IPRATROPIUM NEB FS 0.5 MG/2.5 ML AMPUL.NEB NEB SCH ×4 (07:34→19:52)
[2019-05-15 08:00] VITALS: BP 164/44
[2019-05-15] MEDS: SEVELAMER CARBONATE 800 MG TABLET PO SCH ×3 (08:00→18:37)
--- NOTE | 2019-05-15 08:00 | NUR ---
PRIMARY EDUCATION PROFESSOR OPENING NOTES Received Patient asleep and resting in bed. A/O x 3. VS stable with no acute distress. Breathing even and unlabored on 2LPM via NC with no respiratory distress. No signs and symptoms of pain at this time. Telemonitor in place and patent reading SR with ST and HR-93. Bilateral Nephrostomy tubes clean, intact and patent with clear, yellow output noted. BENNY Midline clean, intact, patent and flushing well. Safety precautions in place. Bed locked and set to lowest position with side rails x 2 up. All needs rendered at this time. Call light within reach. Will continue to monitor.
[2019-05-15] MEDS: Magnesium 1GM/D5W 100ML PREMIX 100 ML IV SCH ×2 (08:38→09:54)
[2019-05-15] MEDS: FLUCONAZOLE (100 MG) 100 MG TABLET PO SCH (08:39)
[2019-05-15] MEDS: LEVOTHYROXINE SODIUM 25 MCG TABLET PO SCH (08:39)
[2019-05-15] MEDS: PANTOPRAZOLE 40 MG VIAL IV SCH (08:39)
[2019-05-15] MEDS: TAMSULOSIN 0.4 MG CAP.SR.24H PO SCH (08:39)
[2019-05-15] MEDS: DOCUSATE SODIUM 100 MG CAPSULE PO SCH (08:39)
[2019-05-15] MEDS: MUPIROCIN OINT 2% 22 GM TUBE SCH ×2 (08:58→21:27)
[2019-05-15] MEDS: Z GUARD REMEDY 2 OZ OINT TP SCH (08:58)
[2019-05-15] MEDS ORDERED: MAGNESIUM OXIDE 400 MG TABLET PO ONE (09:00)
[2019-05-15 12:00] VITALS: BP 90/52
[2019-05-15 16:00] VITALS: BP 112/64
[2019-05-15 20:00] VITALS: BP 98/73
--- NOTE | 2019-05-15 20:20 | NUR ---
PROCESS MANAGER CLOSING NOTES Patient asleep and resting in bed. A/O x 3. VS stable with no acute distress. Breathing even and unlabored on 2LPM via NC with no respiratory distress. No signs and symptoms of pain at this time. Telemonitor in place and patent reading SR with ST and HR-90s. Bilateral Nephrostomy tubes clean, intact and patent with clear, yellow output noted. BENNY Midline clean, intact, patent and flushing well. Safety precautions in place. Bed locked and set to lowest position with side rails x 2 up. All needs rendered at this time. Call light within reach. Will endorse plan of care to oncoming shift.
--- NOTE | 2019-05-15 20:25 | NUR ---
TRANSFER MACHINE OPERATOR OPENING NOTES RECEIVED PATIENT IN BED RESTING COMFORTABLY. A/O X3. ON 2L NC, TOLERATING WELL NO SOB OR ACUTE DISTRESS NOTED AT THIS TIME. TELE MONITOR IS ST/SR WITH HR OF LOW 90s. BENNY MIDLINE INTACT AND FLUSHING WELL. NO S/S OF INFILTRATION. R AND L NEPHROSTOMY TUBES ARE IN PLACE. WITH CLEAN YELLOW URIN OUTPUT. SAFETY PERCEPTIONS IN PLACE. BEL LOW/LOCKED POSITION. SIDE RAILS UPX2. CALL LIGHT WITHIN REACH. WILL CONTINUE TO MONITOR .
[2019-05-15] MEDS: GENTAMICIN 80 MG in IV D5W 50 ML IV SCH (21:27)
--- NOTE | 2019-05-15 23:00 | NUR ---
PATIENTS CRITICAL LAB GENTAMICIN THROUGH 2.3 AT 2215. DID START GENTAMICIN AT 2130. STOPPED THE GENTAMICIN PUMP AND INFORMED MARY CORTEZ, HE ORDERED A GENTAMICIN THROUGH IN AM.
[2019-05-16] VITALS (13 sets, daily range): BP systolic 101–136; BP diastolic 41–78
[2019-05-16 06:25] LABS: BASOPHILS # (AUTO) 0.1 /CMM (0.0-0.2); BASOPHILS % (AUTO) 0.8 % (0.0-2.0); EOSINOPHILS % (AUTO) 3.3 % (0.0-6.0); HEMATOCRIT 32 % (33-45); LYMPHOCYTES # (AUTO) 1.2 /CMM (0.8-4.8); LYMPHOCYTES % (AUTO) 14.6 % (20.0-44.0); MEAN CORPUSCULAR HGB CONC 32 g/dl (31.0-36.0); MEAN CORPUSCULAR VOLUME 84 fL (82-100); MONOCYTES # (AUTO) 0.5 /CMM (0.1-1.30); MONOCYTES % (AUTO) 6.2 % (2.0-12.0); NEUTROPHILS # (AUTO) 6.3 /CMM (1.8-8.9); NEUTROPHILS % (AUTO) 75.1 % (43.0-81.0); PLATELET COUNT (AUTO) 197 /CMM (150-450); RED BLOOD CELL COUNT(AUTO) 3.77 MIL/uL (4.0-5.2); WHITE BLOOD COUNT (AUTO) 8.4 K/uL (4.3-11.0)
[2019-05-16 06:56] LABS: CARBON DIOXIDE 19 mmol/L (21-32); CHLORIDE 112 mmol/L (98-107); CREATININE 2.4 mg/dL (0.6-1.3); GLUCOSE 73 mg/dL (74-106); MAGNESIUM 1.7 mg/dL (1.8-2.4); PHOSPHORUS 4.1 mg/dL (2.5-4.9); POTASSIUM 4.6 mmol/L (3.5-5.1); SODIUM SERUM 142 mmol/L (136-145); UREA NITROGEN, BLOOD 41 mg/dL (7-18)
--- NOTE | 2019-05-16 07:25 | NUR ---
RN OPENING NOTES PT IS AWAKE AND DENIES ANY PAIN AND SOB AT PRESENT MOMENT. PT IS CURRENTLY NPO AWAITING FOR PROCEDURE OF RIGHT NEPHROSTOMY TUBE PLACEMENT. REPORT RECEIVED FROM CHUCKING AND SAWING MACHINE OPERATOR RN WILL CONTINUE TO MONITOR.
[2019-05-16] MEDS: ALBUTEROL FS 2.5 MG/0.5 ML VIAL.NEB NEB SCH ×4 (07:34→21:14)
[2019-05-16] MEDS: IPRATROPIUM NEB FS 0.5 MG/2.5 ML AMPUL.NEB NEB SCH ×4 (07:34→21:14)
[2019-05-16] MEDS: BLOOD SUGAR DIAGNOSTIC 1 EACH STRIP IN SCH ×4 (07:53→22:43)
[2019-05-16] MEDS: SEVELAMER CARBONATE 800 MG TABLET PO SCH ×3 (08:00→18:00)
--- NOTE | 2019-05-16 08:00 | NUR ---
CONTACTED KERRI MYERS FOR D5 FLUID ORDER, ORDERS CARRIED OUT.
--- NOTE | 2019-05-16 08:03 | NUR ---
CONTINUOUS MINER OPENING NOTES PATIENT IN BED RESTING COMFORTABLY. A/O X3. ON 2L NC, TOLERATING WELL NO SOB OR ACUTE DISTRESS NOTED AT THIS TIME. TELE MONITOR IS ST/SR WITH HR OF LOW 90s. BENNY MIDLINE INTACT AND FLUSHING WELL. NO S/S OF INFILTRATION. R AND L NEPHROSTOMY TUBES ARE IN PLACE. WITH CLEAN YELLOW URIN OUTPUT. PATIENT IS NPO FOR AM PROCEDURE OF RIGHT NEPHROSTOMY REPLACEMENT. SAFETY PERCEPTIONS IN PLACE. BED LOW/LOCKED POSITION. SIDE RAILS UPX2. CALL LIGHT WITHIN REACH. ENDORSE PATIENT TO AM RN FOR BOOGIE.
[2019-05-16] MEDS: DOCUSATE SODIUM 100 MG CAPSULE PO SCH (08:49)
[2019-05-16] MEDS: TAMSULOSIN 0.4 MG CAP.SR.24H PO SCH (08:49)
[2019-05-16] MEDS: LEVOTHYROXINE SODIUM 25 MCG TABLET PO SCH (08:49)
[2019-05-16] MEDS: PANTOPRAZOLE 40 MG VIAL IV SCH (08:50)
[2019-05-16] MEDS: MUPIROCIN OINT 2% 22 GM TUBE SCH ×2 (08:50→21:43)
[2019-05-16] MEDS: Z GUARD REMEDY 2 OZ OINT TP SCH (08:50)
[2019-05-16] MEDS: IV D5/ 0.9% NACL 1,000 ML IV PRN (09:07)
--- NOTE | 2019-05-16 11:00 | NUR ---
Per pt's request called friend Carito no answer at this time will call again later.
[2019-05-16] MEDS ORDERED: Magnesium 1GM/D5W 100ML PREMIX 100 ML IV SCH ×2 (11:30)
[2019-05-16] MEDS ORDERED: NALOXONE PREFILLED SYRINGE 2 MG/2 ML SYRINGE IV ONE (14:30)
[2019-05-16] MEDS ORDERED: FENTANYL PF 250MCG/5ML AMPUL IV ONE (14:30)
[2019-05-16] MEDS ORDERED: MIDAZOLAM HCL 5MG/ML VIAL 25 MG/5 ML VIAL IV ONE (14:30)
[2019-05-16] MEDS: DEXTROSE 50%-WATER 50 ML DISP.SYRIN IV PRN (18:39)
--- NOTE | 2019-05-16 19:38 | NUR ---
RN CLOSING NOTES PATIENT IN BED RESTING COMFORTABLY. A/O X3. ON 2L NC, TOLERATING WELL NO SOB OR ACUTE DISTRESS NOTED AT THIS TIME. BENNY MIDLINE INTACT AND FLUSHING WELL. NO S/S OF INFILTRATION. R AND L NEPHROSTOMY TUBES ARE IN PLACE. WITH CLEAN YELLOW URINE OUTPUT. PATIENT IS CLEAR LIQUID DIET FOR NOW. SAFETY PRECAUTIONS IN PLACE. BED LOW/LOCKED POSITION. SIDE RAILS UPX2. CALL LIGHT WITHIN REACH. ENDORSE PATIENT TO CRIB TENDER RN FOR BOOGIE.
--- NOTE | 2019-05-16 19:50 | NUR ---
MS RN OPENING NOTES RECEIVED PATIENT IN BED RESTING COMFORTABLY. A/O X3. ON 2L NC, TOLERATING WELL NO SOB OR ACUTE DISTRESS NOTED AT THIS TIME. BENNY MIDLINE INTACT AND FLUSHING WELL. NO S/S OF INFILTRATION. R AND L NEPHROSTOMY TUBES ARE IN PLACE. WITH CLEAN YELLOW URINE OUTPUT. PATIENT IS CLEAR LIQUID DIET FOR NOW. SAFETY PRECAUTIONS IN PLACE. BED LOW/LOCKED POSITION. SIDE RAILS UPX2. CALL LIGHT WITHIN REACH. WILL CONTINUE TO MONITOR.
[2019-05-17 04:00] VITALS: BP 110/69
--- NOTE | 2019-05-17 07:27 | NUR ---
MS RN CLOSING NOTES PATIENT IN BED RESTING COMFORTABLY. A/O X3. ON 2L NC, TOLERATING WELL NO SOB OR ACUTE DISTRESS NOTED AT THIS TIME. BENNY MIDLINE INTACT AND FLUSHING WELL. NO S/S OF INFILTRATION. R AND L NEPHROSTOMY TUBES ARE IN PLACE. WITH CLEAN YELLOW URINE OUTPUT. PATIENT IS CLEAR LIQUID DIET FOR NOW. SAFETY PRECAUTIONS IN PLACE. BED LOW/LOCKED POSITION. SIDE RAILS UPX2. CALL LIGHT WITHIN REACH. ENDORSED THE PATIENT TO AM RN FOR BOOGIE
[2019-05-17] MEDS: BLOOD SUGAR DIAGNOSTIC 1 EACH STRIP IN SCH ×4 (07:30→21:30)
[2019-05-17] MEDS: ALBUTEROL FS 2.5 MG/0.5 ML VIAL.NEB NEB SCH ×4 (07:59→21:09)
[2019-05-17] MEDS: IPRATROPIUM NEB FS 0.5 MG/2.5 ML AMPUL.NEB NEB SCH ×4 (07:59→21:09)
[2019-05-17 08:24] LABS: BASOPHILS # (AUTO) 0.1 /CMM (0.0-0.2); BASOPHILS % (AUTO) 1.2 % (0.0-2.0); EOSINOPHILS % (AUTO) 2.9 % (0.0-6.0); HEMATOCRIT 31 % (33-45); HEMOGLOBIN 9.7 g/dL (11.5-14.8); LYMPHOCYTES # (AUTO) 1.2 /CMM (0.8-4.8); LYMPHOCYTES % (AUTO) 14.8 % (20.0-44.0); MEAN CORPUSCULAR HGB CONC 31 g/dl (31.0-36.0); MEAN CORPUSCULAR VOLUME 84 fL (82-100); MONOCYTES # (AUTO) 0.5 /CMM (0.1-1.30); MONOCYTES % (AUTO) 6.6 % (2.0-12.0); NEUTROPHILS # (AUTO) 6.2 /CMM (1.8-8.9); NEUTROPHILS % (AUTO) 74.5 % (43.0-81.0); PLATELET COUNT (AUTO) 215 /CMM (150-450); RED BLOOD CELL COUNT(AUTO) 3.71 MIL/uL (4.0-5.2); WHITE BLOOD COUNT (AUTO) 8.3 K/uL (4.3-11.0)
--- NOTE | 2019-05-17 08:45 | NUR ---
ms rn received on bed, awake,alert,oriented x2-3,not in any form of distress, respirations even and unlabored,no sob noted,will monitor patient.
--- NOTE | 2019-05-17 10:00 | NUR ---
ms falk breakfast served,due meds given,tolerated well.
[2019-05-17] MEDS: LEVOTHYROXINE SODIUM 25 MCG TABLET PO SCH (10:23)
[2019-05-17] MEDS: PANTOPRAZOLE 40 MG VIAL IV SCH (10:23)
[2019-05-17] MEDS: SEVELAMER CARBONATE 800 MG TABLET PO SCH ×3 (10:23→17:29)
[2019-05-17] MEDS: TAMSULOSIN 0.4 MG CAP.SR.24H PO SCH (10:24)
[2019-05-17] MEDS: DOCUSATE SODIUM 100 MG CAPSULE PO SCH (10:24)
[2019-05-17 10:52] LABS: ALANINE AMINOTRANSFERASE 8 U/L (12-78); ALKALINE PHOSPHATASE 73 U/L (46-116); ASPARTATE AMINOTRANSFERASE 20 U/L (15-37); BILIRUBIN,TOTAL 0.1 mg/dL (0.2-1.0); CALCIUM, SERUM 7.9 mg/dL (8.5-10.1); CARBON DIOXIDE 21 mmol/L (21-32); CHLORIDE 112 mmol/L (98-107); CREATININE 2.3 mg/dL (0.6-1.3); GLUCOSE 98 mg/dL (74-106); PHOSPHORUS 4.3 mg/dL (2.5-4.9); POTASSIUM 4.5 mmol/L (3.5-5.1); SODIUM SERUM 144 mmol/L (136-145); TOTAL PROTEIN, SERUM 5.8 g/dL (6.4-8.2); UREA NITROGEN, BLOOD 37 mg/dL (7-18)
--- NOTE | 2019-05-17 11:30 | NUR ---
ms rn patient refused to be cleaned, she said this afternoon.
[2019-05-17 12:00] VITALS: BP 126/69
[2019-05-17 12:26] LABS: ALBUMIN 1.4 g/dL (3.4-5.0)
--- NOTE | 2019-05-17 15:00 | NUR ---
ms rn patient has been refusing to be cleaned and repositioning.
[2019-05-17] MEDS: Magnesium 1GM/D5W 100ML PREMIX 100 ML IV SCH ×2 (15:37→16:52)
[2019-05-17] MEDS: Z GUARD REMEDY 2 OZ OINT TP SCH (15:38)
[2019-05-17] MEDS: MUPIROCIN OINT 2% 22 GM TUBE SCH ×2 (15:39→21:28)
--- NOTE | 2019-05-17 15:48 | NUR ---
PATIENT URINE CULTURE PER CHRISTY POSITIVE FOR CRE,LOCOMOTIVE FIRER/FIREMAN MADE AWARE.
--- NOTE | 2019-05-17 15:49 | NUR ---
AWAITS BED AVAILABILITY SN[facility].
[2019-05-17] MEDS ORDERED: RXGEN XX (17:04)
--- NOTE | 2019-05-17 17:20 | NUR ---
ms rn market development analyst tryng to clean her up but she is still refusing, eating dinner at this time, will endorsed to overnight cashier.
--- NOTE | 2019-05-17 19:35 | NUR ---
MS RN OPENING NOTES RECEIVED PATIENT IN BED FROM MORNING SHIFT ALERT AND ORIENTED X 3. VERBALLY RESPONSIVE AND ABLE TO FOLLOW DIRECTIONS. BREATHING REGULAR AND UNLABORED ON OXYGEN AT 2L/MIN VIA NASAL CANNULA. RIGHT UPPER ARM MIDLINE INTACT AND PATENT, INFUSING WELL WITH NO BLEEDING OR S/S OF INFECTION NOTED. BILATERAL NEPHROSTOMY INTACT DRAINING MODERATE CLEAR YELLOW OUTPUT. NO COMPLAINTS OF PAIN/DISCOMFORT REPORTED OF THE TIME. BED LOW AND LOCKED ON SEMI FOWLERS POSITION. CALL LIGHT IN REACH. WILL CONTINUE TO MONITOR.
[2019-05-17 20:00] VITALS: BP 123/63
[2019-05-17] MEDS: INSULIN REGULAR, HUMAN 100 UNIT/ML 3 ML VIAL SQ PRN (21:30)
--- NOTE | 2019-05-17 22:00 | NUR ---
MS RN NOTES BS 94mg/dl, NO INSULIN COVERAGE NEEDED. SNACKS PROVIDED ON BEDSIDE. WILL CONTINUE TO MONITOR.
[2019-05-18 04:00] VITALS: BP 129/69
--- NOTE | 2019-05-18 06:15 | NUR ---
MS RN CLOSING NOTES PATIENT IN BED ALERT AND ORIENTED X 3. VERBALLY RESPONSIVE AND ABLE TO FOLLOW DIRECTIONS. BREATHING REGULAR AND UNLABORED ON OXYGEN AT 2L/MIN VIA NASAL CANNULA. RIGHT UPPER ARM MIDLINE INTACT AND INFUSING WELL. BILATERAL NEPHROSTOMY INTACT DRAINING MODERATE CLEAR YELLOW 1000cc OUTPUT. NO COMPLAINTS OF PAIN/DISCOMFORT REPORTED THE WHOLE SHIFT. WOUND TREATMENTS PROVIDED. MAINTAINED ON CONTACT ISOLATION FOR ESBL. PROPER HAND WASHING AND ISOLATION PRECAUTIONS OBSERVED. BED LOW AND LOCKED ON SEMI FOWLERS POSITION. CALL LIGHT IN REACH. WILL ENDORSE TO MORNING SHIFT FOR BOOGIE.
--- NOTE | 2019-05-18 07:15 | NUR ---
RN OPENING NOTES RECEIVED JOSEFINA MANSFIELD BED RESTING. NOT IN ANY FORM OF DISTRESS. NO SOB. DENIED PAIN OR DISCOMFORT AT THIS TIME . IV ACCESS INTACT AND PATENT. KEPT PATIENT SAFE AND COMFORTABLE. MAINTAINED ISOLATION PRECAUTIONS. BED IN LOW/LOCKED PSOTION. SIDERAILS UPX2, CALL LIGHT IN REACH. WILL CONT TO MONITOR ACCORDINGLY
[2019-05-18 08:00] VITALS: BP 108/64
[2019-05-18] MEDS: IPRATROPIUM NEB FS 0.5 MG/2.5 ML AMPUL.NEB NEB SCH ×4 (08:31→19:55)
[2019-05-18] MEDS: ALBUTEROL FS 2.5 MG/0.5 ML VIAL.NEB NEB SCH ×4 (08:32→19:55)
[2019-05-18] MEDS ORDERED: GENTAMICIN 80 MG in IV D5W 50 ML IV SCH (09:00)
[2019-05-18] MEDS: TAMSULOSIN 0.4 MG CAP.SR.24H PO SCH (09:26)
[2019-05-18] MEDS: DOCUSATE SODIUM 100 MG CAPSULE PO SCH (09:26)
[2019-05-18] MEDS: LEVOTHYROXINE SODIUM 25 MCG TABLET PO SCH (09:26)
[2019-05-18] MEDS: PANTOPRAZOLE 40 MG VIAL IV SCH (09:26)
[2019-05-18] MEDS: SEVELAMER CARBONATE 800 MG TABLET PO SCH ×3 (09:43→17:46)
[2019-05-18] MEDS: Z GUARD REMEDY 2 OZ OINT TP SCH (09:44)
[2019-05-18] MEDS: BLOOD SUGAR DIAGNOSTIC 1 EACH STRIP IN SCH ×4 (09:58→21:19)
[2019-05-18] MEDS: MUPIROCIN OINT 2% 22 GM TUBE SCH ×2 (10:01→21:19)
[2019-05-18 14:38] LABS: BASOPHILS % (AUTO) 0.6 % (0.0-2.0); EOSINOPHILS % (AUTO) 3.4 % (0.0-6.0); HEMATOCRIT 30 % (33-45); HEMOGLOBIN 9.4 g/dL (11.5-14.8); LYMPHOCYTES # (AUTO) 1.1 /CMM (0.8-4.8); LYMPHOCYTES % (AUTO) 13.4 % (20.0-44.0); MEAN CORPUSCULAR HGB CONC 32 g/dl (31.0-36.0); MEAN CORPUSCULAR VOLUME 83 fL (82-100); MONOCYTES # (AUTO) 0.6 /CMM (0.1-1.30); MONOCYTES % (AUTO) 6.8 % (2.0-12.0); NEUTROPHILS # (AUTO) 6.3 /CMM (1.8-8.9); NEUTROPHILS % (AUTO) 75.8 % (43.0-81.0); PLATELET COUNT (AUTO) 220 /CMM (150-450); RED BLOOD CELL COUNT(AUTO) 3.55 MIL/uL (4.0-5.2); WHITE BLOOD COUNT (AUTO) 8.3 K/uL (4.3-11.0)
[2019-05-18 14:53] LABS: ALANINE AMINOTRANSFERASE < 6 U/L (12-78); ALKALINE PHOSPHATASE 78 U/L (46-116); ASPARTATE AMINOTRANSFERASE 16 U/L (15-37); BILIRUBIN,TOTAL 0.2 mg/dL (0.2-1.0); CALCIUM, SERUM 7.9 mg/dL (8.5-10.1); CARBON DIOXIDE 22 mmol/L (21-32); CHLORIDE 111 mmol/L (98-107); CREATININE 2.1 mg/dL (0.6-1.3); GLUCOSE 99 mg/dL (74-106); MAGNESIUM 1.7 mg/dL (1.8-2.4); PHOSPHORUS 3.9 mg/dL (2.5-4.9); POTASSIUM 4.3 mmol/L (3.5-5.1); SODIUM SERUM 141 mmol/L (136-145); TOTAL PROTEIN, SERUM 6.1 g/dL (6.4-8.2); UREA NITROGEN, BLOOD 33 mg/dL (7-18)
[2019-05-18 15:23] LABS: ALBUMIN 1.3 g/dL (3.4-5.0)
[2019-05-18 16:00] VITALS: BP 141/80
[2019-05-18] MEDS: IV D5/ 0.9% NACL 1,000 ML IV PRN (19:06)
--- NOTE | 2019-05-18 19:30 | NUR ---
RN CLOSING NOTES PATIENT IN STABLE CONDITION. ALL NEED ATTENDED AND PROVIDED. ALL DUE MEDS GIVEN ORDERED. TURNED AND REPOSITIONED PATIENT EVERY 2HRS NEEDED. WOUND CARE RENDERED. KEPT PATIENT SAFE AND COMFORTABLE. BED IN LOW/LOCKED POSITION, SIDERAILS UPX2, CALL LIGHT IN REACH. ENDORSED TO NIGHT RN FOR BOOGIE
[2019-05-18 20:00] VITALS: BP 138/54
[2019-05-19 04:00] VITALS: BP 120/66
--- NOTE | 2019-05-19 07:00 | NUR ---
RN MS NOTES OPENING . PATIENT IS A/O X1 PATIENT IS NON VERBAL BUT IS AWAKE. PATIENT HAS O2 2L .PATIENT IS ON DIAPER . PATIENT IS ON BED REST, SACRAL WOUND STAGE FOUR . PATIENT HAS G TUBE JEVITY AT 50ML/ HR. PATIENT HAS R HAND 20# NO SOB, PAIN UNABLE TO ASSESS. NO ACUTE RESPIRATORY DISTRESS. ALL SAFETY MEASURE IMPLEMENTED PER HOSPITAL POLICY.
[2019-05-19 07:19] LABS: CALCIUM, SERUM 8.1 mg/dL (8.5-10.1); CARBON DIOXIDE 21 mmol/L (21-32); CHLORIDE 112 mmol/L (98-107); GLUCOSE 80 mg/dL (74-106); POTASSIUM 4.1 mmol/L (3.5-5.1); SODIUM SERUM 143 mmol/L (136-145); UREA NITROGEN, BLOOD 30 mg/dL (7-18)
[2019-05-19] MEDS: ALBUTEROL FS 2.5 MG/0.5 ML VIAL.NEB NEB SCH ×3 (07:39→15:00)
[2019-05-19] MEDS: IPRATROPIUM NEB FS 0.5 MG/2.5 ML AMPUL.NEB NEB SCH ×3 (07:39→15:00)
[2019-05-19 08:00] VITALS: BP 146/78
[2019-05-19] MEDS: LEVOTHYROXINE SODIUM 25 MCG TABLET PO SCH (08:40)
[2019-05-19] MEDS: SEVELAMER CARBONATE 800 MG TABLET PO SCH ×2 (08:40→13:09)
[2019-05-19] MEDS: TAMSULOSIN 0.4 MG CAP.SR.24H PO SCH (08:40)
[2019-05-19] MEDS: DOCUSATE SODIUM 100 MG CAPSULE PO SCH (08:40)
[2019-05-19] MEDS: MUPIROCIN OINT 2% 22 GM TUBE SCH (08:41)
[2019-05-19] MEDS: PANTOPRAZOLE 40 MG VIAL IV SCH (08:41)
[2019-05-19] MEDS: BLOOD SUGAR DIAGNOSTIC 1 EACH STRIP IN SCH ×2 (08:41→12:42)
--- NOTE | 2019-05-19 09:00 | NUR ---
MS RN 1 PATIENT FAMILY A BED SIDE SPECIFIC CARE WITH THE FAMILY MEMBER( PATIENT) SON WANTED THE HEAD OF THE BED UP. PATIENT SON WAS IRRITATED ABOUT CARE . WAS RECOMMEND TO TURN AND REPOSITION THAT PATIENT. THE SON DID NOT WANT THE MOM TO BE MOVED AT ALL. Addendum: 05/19/19 at 1904 by ZOIE RAMSAY RN WRONG PATIENT
[2019-05-19] MEDS: Z GUARD REMEDY 2 OZ OINT TP SCH (09:13)
[2019-05-19 12:00] VITALS: BP 146/78
[2019-05-19 16:00] VITALS: BP 123/95
--- NOTE | 2019-05-19 18:40 | NUR ---
RN MS NOTES PATIENT FAMILY MEMBER WAS MAD THAT PATIENTS BELONGINGS WAS AT [facility]. FAMILY INFORMED THAT [facility] DID NOT HAVE AN OPEN ISOLATION ROOM.
--- NOTE | 2019-05-19 18:52 | NUR ---
JOELLEN MS NOTES SON WAS MAD THAT THE PATIENT WASNT MOVED AND REPOSITION. DURING THE DAY EVEN THOUGH EARLIER HE STATE HE DID NOT WANT THE PATIENT TO BE MOVE. PATIENT WAS COMPLAINING THAT THERE WAS NOT ENOUGH FOOD GIVEN TO THE MOM. DURING THE DAY. THE SON WAS INFORMED THAT THE FEED IS STOPPED WHEN CLEANING THE PATIENT. CHANGING THE PATIENT. THE SON AND FAMILY MEMBERS DID NOT LISTEN TO WHAT WAS BEING INFORMED TO THEM. Addendum: 05/19/19 at 1904 by ZOIE RAMSAY RN WRONG PATIENT
--- NOTE | 2019-05-19 18:58 | NUR ---
RN MS NOTES PATIENT IS NON VERBAL. PATIENT IS ON BED REST. FAMILY AT BED SIDE. NO SOB, UNABLE TO ASSES PAIN. NO ACUTE RESPIRATORY DISTRESS AT THIS TIME. PATIENT IV LINE PATENT AND INTACT. NO SIGNS OF INFILTRATION . PATIENT WAS NOT TURNED AND REPOSITION PER FAMILY REQUEST BED LOCKED AND LOWEST POSITION CALL LIGHT WITH IN REACH ALL SAFETY MEASURES IMPLEMENTED PER HOSPITAL POLICY . Addendum: 05/19/19 at 1903 by ZOIE RAMSAY RN WRONG PATIENT
--- NOTE | 2019-05-19 19:04 | NUR ---
RN MS NOTES PATIENT DISCHARGE TO [facility]. CARE MANAGEMENT INFORMED OKAY TO TRANSFER [facility] - TRANSPORT STORE OPERATIONS SPECIALIST ALL DISCHARGE PAPERS COMPETED ALL PAPERS COMPLETED
== END 2019-05-19 17:15 | DRG 871 ==
LOC: ER 14:43 → TELE1 18:09 → MEDSG1 05-16 15:39
PROVIDERS: ADMIT Internal Medicine; ATTEND Nurse Practitioner Acute Care
PROC: 0T25X0Z Change Drainage Device in Kidney, External Approach (ICD-10-PCS; principal; 2019-05-16)
PROC: 05H533Z Insertion of Infusion Device into Right Subclavian Vein, Percutaneous Approach (ICD-10-PCS; 2019-05-18)
DX: A41.9 Sepsis, unspecified organism (principal); E43 Unspecified severe protein-calorie malnutrition; G92 Toxic encephalopathy; J18.9 Pneumonia, unspecified organism; N17.0 Acute kidney failure with tubular necrosis; R65.21 Severe sepsis with septic shock; N13.6 Pyonephrosis; J98.11 Atelectasis; B96.1 Klebsiella pneumoniae [K. pneumoniae] as the cause of diseases classified elsewhere; E86.0 Dehydration; I12.9 Hypertensive chronic kidney disease with stage 1 through stage 4 chronic kidney disease, or unspecified chronic kidney disease; N18.9 Chronic kidney disease, unspecified; E03.9 Hypothyroidism, unspecified; D50.9 Iron deficiency anemia, unspecified; E16.2 Hypoglycemia, unspecified; E83.39 Other disorders of phosphorus metabolism; Z87.440 Personal history of urinary (tract) infections; E87.70 Fluid overload, unspecified; Z43.6 Encounter for attention to other artificial openings of urinary tract; Z22.322 Carrier or suspected carrier of Methicillin resistant Staphylococcus aureus; Z85.51 Personal history of malignant neoplasm of bladder; Z86.718 Personal history of other venous thrombosis and embolism; Z79.01 Long term (current) use of anticoagulants; Z66 Do not resuscitate; Z88.0 Allergy status to penicillin; E88.09 Other disorders of plasma-protein metabolism, not elsewhere classified; Z68.26 Body mass index [BMI] 26.0-26.9, adult; D47.3 Essential (hemorrhagic) thrombocythemia; T36.8X5A Adverse effect of other systemic antibiotics, initial encounter; Y92.129 Unspecified place in nursing home as the place of occurrence of the external cause; Z79.899 Other long term (current) drug therapy
CPT/HCPCS: 36410; 36415; 71045-TC; 71250-TC; 75989; 75989-TC; 80048-TC; 80053-TC; 80076-TC; 80170-TC; 81000-TC; 82550-TC; 82962-TC; 83605-TC; 83735-TC; 83970; 84100-TC; 84155; 84165; 84484-TC; 85025-TC; 85610-TC; 85730-TC; 86850-TC; 87040-TC; 87081-TC; 87086-TC; 87186-TC; 92526; 92611-TC; 93307-TC; 94799-TC; 97530-TC; 97535-TC; A4216; C9113; G0378; J0770; J1580; J1815; J2185; J2250; J2310; J2920; J3010; J3370; J3475; J7030; J7040; J7042; J7050; J7060; J7070

== ENCOUNTER 2019-05-25 15:32 | Inpatient (IN) | payer MEDICARE, MEDICAID ==
[~2019-05-25] VITALS: Ht 162.6 cm; Wt 66.2 kg
[~2019-05-25 15:32] MED LIST changes: +ACET-868 PO; +ALBU2.5V13 NEB; +CRAN3875 PO; -DILT-1 PO; +DILT60TA3 PO; +DOCU-141 PO; -FLUC100T8 PO; +IPRA0.2S9 NEB; +LEVO25TA7 PO; -LEVO25TA9 PO; -METO25TA20 PO; +METO25TA6 PO; -MULT-447 PO; +MULT1TAB73 PO; +MUPI22OI7; +RXGEN XX; +SEVE800T7 PO
--- NOTE | 2019-05-25 16:16 | NUR ---
PT AAOX4. BIBPA FOR GLF PT STATES SHE FELL OF HER BED. -KO. PT DENIES ANY PAIN. UPON ASSESSMENT NO ACUTE DISTRESS NOTED. PLACED ON MONITOR AND PULSE OX. AWAITING MD FOR EVLA.
[2019-05-25] MEDS ORDERED: ALBU2.5V38 IH (16:17)
[2019-05-25] MEDS ORDERED: DILT-2 PO (16:17)
[2019-05-25] MEDS ORDERED: APIX2.5T PO (16:18)
[2019-05-25] MEDS ORDERED: SEVE800T8 PO (16:18)
[2019-05-25] MEDS ORDERED: IPRA0.2S9 IH (16:18)
--- NOTE | 2019-05-25 16:53 | NUR ---
Andreina danielson in [facility] - 05/25/19 at 1745 by KITTYOR XRAY AT BEDSIDE
[2019-05-25 17:13] LABS: BASOPHILS # (AUTO) 0.1 /CMM (0.0-0.2); EOSINOPHILS % (AUTO) 1.3 % (0.0-6.0); HEMATOCRIT 31 % (33-45); HEMOGLOBIN 9.5 g/dL (11.5-14.8); LYMPHOCYTES # (AUTO) 1.6 /CMM (0.8-4.8); LYMPHOCYTES % (AUTO) 12.3 % (20.0-44.0); MEAN CORPUSCULAR HGB CONC 31 g/dl (31.0-36.0); MEAN CORPUSCULAR VOLUME 84 fL (82-100); MONOCYTES # (AUTO) 0.6 /CMM (0.1-1.30); MONOCYTES % (AUTO) 4.4 % (2.0-12.0); NEUTROPHILS # (AUTO) 10.6 /CMM (1.8-8.9); PLATELET COUNT (AUTO) 327 /CMM (150-450); WHITE BLOOD COUNT (AUTO) 13.1 K/uL (4.3-11.0)
[2019-05-25 17:23] LABS: CALCIUM, SERUM 8.9 mg/dL (8.5-10.1); CARBON DIOXIDE 22 mmol/L (21-32); CHLORIDE 111 mmol/L (98-107); CREATININE 2.4 mg/dL (0.6-1.3); GLUCOSE 86 mg/dL (74-106); POTASSIUM 4.4 mmol/L (3.5-5.1); SODIUM SERUM 140 mmol/L (136-145); UREA NITROGEN, BLOOD 36 mg/dL (7-18)
--- NOTE | 2019-05-25 17:45 | NUR ---
RESTING COMFORTABLY. VSS.
--- NOTE | 2019-05-25 17:58 | NUR ---
MAC CALLED AND PRESENTED CASE FOR HIGHER LEVEL OF CARE
--- NOTE | 2019-05-25 18:27 | NUR ---
[facility] CALLED ,NO CAPACITY AND MEDICINE DEPARTMENT DON'T ACCEPT TX AFTER 5 PM
--- NOTE | 2019-05-25 19:47 | NUR ---
DR. YAO ON THE PHONE WITH DR. CHATMAN
--- NOTE | 2019-05-25 19:55 | NUR ---
BED ASSIGNMENT 203
--- NOTE | 2019-05-25 20:25 | NUR ---
REPORT GIVEN TO PENG CUENCA
--- NOTE | 2019-05-25 20:46 | NUR ---
BENNY PICC LINE
[2019-05-25 20:50] VITALS: BP 152/73
[2019-05-25 21:00] VITALS: BP 152/72
--- NOTE | 2019-05-25 21:20 | NUR ---
RN NOTES RECEIVED PT.FROM ER WITH DX. DISLODGED NEPHROSTOMY TUBE, A/OX2, NOTICED PATIENT IS CONGESTED, WITH LEFT LATERAL NEPHROSTOMY TUBE, SKIN ASSESS,EMT WAS RENDERED, ADMISSION PROTOCOL WAS DONE, CALL LIGHT WITHIN REACH, SIDERAILSUPX2, CONTINUE TO MONITOR
--- NOTE | 2019-05-25 22:45 | NUR ---
RN NOTES RECHECKED PT. HEART RATE STILL HIGH -140, STAT EKG WAS ORDERED, NO EKG IN ER ... EKG RESULT SINUS TACH 138.. WILL INFORMED DR. BAUMANN
--- NOTE | 2019-05-25 22:50 | NUR ---
RN NOTES DR. CHATMAN CAME AND SHOWED THE EKG RESULT... DR. CHATMAN GAVE AN ORDER OF MORPHINE 2MG IV X1, ORDER NOTED AND CARRIED OUT
[2019-05-25] MEDS ORDERED: TEMAZEPAM 15 MG CAPSULE PO PRN (23:00)
[2019-05-25] MEDS ORDERED: IPRATROPIUM NEB FS 0.5 MG/2.5 ML AMPUL.NEB IH PRN (23:00)
[2019-05-25] MEDS ORDERED: ONDANSETRON HCL/PF 4 MG/2 ML VIAL IVP PRN (23:00)
[2019-05-25] MEDS ORDERED: ACETAMINOPHEN 325 MG TABLET PO PRN ×2 (23:00)
[2019-05-25] MEDS ORDERED: Z GUARD REMEDY 2 OZ OINT TP PRN (23:00)
[2019-05-25] MEDS ORDERED: MORPHINE SULFATE INJ 2 MG/ML DISP.SYRIN IV ONE (23:30)
[2019-05-26] VITALS (58 sets, daily range): BP systolic 78–115; BP diastolic 22–83
--- NOTE | 2019-05-26 | NUR ---
RN NOTES DR. BAUMANN GAVE AN ORDER TO PUT PATIENT ON DNR, ORDER NOTED AND CARRIED OUT... WITNESSED BY ANOTHER NURSE
[2019-05-26] MEDS: ALBUTEROL FS 2.5 MG/3 ML VIAL.NEB IH SCH ×5 (01:30→19:40)
--- NOTE | 2019-05-26 01:50 | NUR ---
RN NOTES NOTICED PT. IS CONGESTED, RT AND CAME AND SUCTIONED THE PATIENT
--- NOTE | 2019-05-26 01:55 | NUR ---
RT NOTE PT NASOTRACHAEL SUCTIONED. MODERATE THICK WHITE YELLOW SECRETIONS NOTED. RN, PENG, AWARE. NO SOB NOTED AT THIS TIME.
--- NOTE | 2019-05-26 07:00 | NUR ---
RN NOTES SLEEPING BUT AROUSABLE, MORNING CARE RENDERED, NOT IN DISTRESS, NO PAIN NOTED, PT. NEEDS ATTENDED
--- NOTE | 2019-05-26 07:20 | NUR ---
MS RN OPENING NOTES RECEIVED PATIENT IN BED, ASLEEP, AROUSABLE TO VERBAL AND TACTILE STIMULI. RESPONSIVE TO NAME. OPENS EYES AND ABLE TO ANSWER SIMPLE QUESTIONS. HOB ELEVATED. ON O2 VIA NC AT 4L/MIN BLANCA WELL WITH AN O2 SAT OF 97%. DENIES ANY C/O PAIN NOR DISCOMFORT AT THIS TIME. LEFT UPPER ARM MIDLINE INTACT AND PATENT. ABD SOFT AND NON-TENDER. NOTED LEFT NEPHROSTOMY TUBE INTACT. PREVIOUS NEPHROSTOMY TUBE ON RIGHT SIDE OF BACK NOW AN OPEN AREA. NOTED BLE EDEMA, ELEVATED WITH PILLOWS. BED IN LOWEST POSITION, LOCKED. BED ALARM ON. CALL LIGHT WITHIN REACH.
[2019-05-26] MEDS: LEVOTHYROXINE SODIUM 25 MCG TABLET PO SCH (07:30)
[2019-05-26] MEDS: PANTOPRAZOLE 40 MG TABLET.DR PO SCH (07:30)
[2019-05-26] MEDS: SEVELAMER CARBONATE 800 MG TABLET PO SCH ×3 (08:00→17:06)
--- NOTE | 2019-05-26 08:00 | NUR ---
MS RN NOTES HELD AM PO MEDS, PATIENT WITH CHANGE OF CONDITION AND UNABLE TO SWALLOW.
--- NOTE | 2019-05-26 08:00 | NUR ---
MS RN NOTES NOTED PATIENT WITH LABORED BREATHING, GRUNTING WITH AN SPO2 OF 88%. RAISED HOB SUCTIONED PATIENT AND OBTAINED MOD PALE YELLOW THICK SECRETIONS, HR OF 128; B/P OF 93/45; RR 22. PAGED MARY ANAYA NP.
--- NOTE | 2019-05-26 08:10 | NUR ---
MS RN NOTES RECEIVED ORDERS FROM MARY ANAYA NP FOR STAT CHEST X-RAY, ABG, BC, ROCEPHIN 1 GM DAILY, F/U URINE 1L NS, LACTIC ACID, CARRIED OUT.
--- NOTE | 2019-05-26 08:31 | NUR ---
WOUND CARE CONSULT: PT UNSTABLE FOR SKIN ASSESSMENT AT THIS TIME. PER NURSING DOCUMENTATION AND ADMISSION PHOTOS PT HAS INTACT DEEP TISSUE INJURIES TO RT HEEL, BACK AND SACRUM, PRESENT ON ADMISSION. RECOMMENDATIONS MADE FOR WOUND CARE AND SKIN PROTECTION BASED ON ADMISSION PHOTOS/NURSING DOCUMENTATION. DISCUSSED WITH NURSING STAFF. WILL SEE PT PT CONDITION PERMITS. MARIA ISOFLEX LOW AIRLOSS MATTRESS TO BE PLACED WHEN AVAILABLE. MD IN AGREEMENT WITH PLAN OF CARE.
[2019-05-26 08:52] LABS: APPEARANCE,URINE CLOUDY (CLEAR); BILIRUBIN,URINE NEGATIVE (NEGATIVE); BLOOD, URINE LARGE Ery/uL (NEGATIVE); COLOR,URINE BROWN (YELLOW); KETONES,URINE NEGATIVE (NEGATIVE); LEUKOCYTE ESTERASE ,URINE MODERATE (NEGATIVE); NITRITE, URINE NEGATIVE (NEGATIVE); PROTEIN,URINE >=300 mg/dl (NEGATIVE); UGLUCOSE NEGATIVE (NEGATIVE); UROBILINOGEN,URINE 0.2 EU/dL (0.2)
--- NOTE | 2019-05-26 08:55 | NUR ---
MS RN NOTES WITH ORDER FOR D/C ROCEPHIN AND START MEEREM 500 IV Q12HR
[2019-05-26] MEDS ORDERED: MEROPENEM 500 MG in IV NS 0.9% 50 ML IV SCH (09:00)
[2019-05-26] MEDS: DOCUSATE SODIUM 100 MG CAPSULE PO SCH ×2 (09:00→17:00)
[2019-05-26] MEDS: DILTIAZEM HCL CD 120 MG PO SCH (09:00)
[2019-05-26] MEDS ORDERED: CEFTRIAXONE 1 G in IV D5W 50 ML IV SCH (09:00)
[2019-05-26] MEDS: MULTIVITAMINS,THERAGRAN 1 UDTAB TABLET PO SCH (09:00)
[2019-05-26] MEDS: METOPROLOL TARTRATE 25 MG TABLET PO SCH ×2 (09:00→17:00)
[2019-05-26 09:13] LABS: RBC,URINE TOO NUMEROUS TO COUN /HPF (0-2)
[2019-05-26 09:14] LABS: BACTERIA,URINE Few /HPF (None Seen); SQUAMOUS EPITHELIAL CELL,UR Rare /HPF (None Seen); WBC,URINE 21-50 /HPF (0-3)
[2019-05-26 09:16] LABS: ABG BASE EXCESS -6.8 mmol/L; ABG OXYGEN SATURATION 96.4 % (92.0-98.5); ABG PCO2 36.7 mmHg (35.0-45.0); ABG PH 7.322 (7.350-7.450); ABG PO2 101.4 mmHg (75.0-100.0); AaDO2 141.6 mmHg; COHb 0.3 % (0.5-1.5); MetHb 0.9 % (0.0-1.5); O2Hb 95.2 % (94.0-97.0); SITE, ABG Right Radial; VENT MODE, BG SM 40%
[2019-05-26 09:25] LABS: ALKALINE PHOSPHATASE 87 U/L (46-116); ASPARTATE AMINOTRANSFERASE 23 U/L (15-37); BILIRUBIN,TOTAL 0.3 mg/dL (0.2-1.0); CALCIUM, SERUM 9.1 mg/dL (8.5-10.1); CARBON DIOXIDE 21 mmol/L (21-32); CHLORIDE 112 mmol/L (98-107); CREATININE 3.3 mg/dL (0.6-1.3); PHOSPHORUS 3.8 mg/dL (2.5-4.9); POTASSIUM 5.7 mmol/L (3.5-5.1); SODIUM SERUM 141 mmol/L (136-145); TOTAL PROTEIN, SERUM 6.7 g/dL (6.4-8.2); UREA NITROGEN, BLOOD 39 mg/dL (7-18)
[2019-05-26 09:27] LABS: BASOPHILS # (AUTO) 0.2 /CMM (0.0-0.2); BASOPHILS % (AUTO) 0.4 % (0.0-2.0); EOSINOPHILS % (AUTO) 0.1 % (0.0-6.0); HEMATOCRIT 32 % (33-45); HEMOGLOBIN 9.6 g/dL (11.5-14.8); LYMPHOCYTES # (AUTO) 0.5 /CMM (0.8-4.8); LYMPHOCYTES % (AUTO) 0.9 % (20.0-44.0); MEAN CORPUSCULAR HGB CONC 30 g/dl (31.0-36.0); MEAN CORPUSCULAR VOLUME 84 fL (82-100); MONOCYTES # (AUTO) 0.8 /CMM (0.1-1.30); MONOCYTES % (AUTO) 1.6 % (2.0-12.0); NEUTROPHILS # (AUTO) 46.6 /CMM (1.8-8.9); PLATELET COUNT (AUTO) 320 /CMM (150-450); RED BLOOD CELL COUNT(AUTO) 3.84 MIL/uL (4.0-5.2)
[2019-05-26 09:33] LABS: WHITE BLOOD COUNT (AUTO) 48.1 K/uL (4.3-11.0)
[2019-05-26 09:35] LABS: ALANINE AMINOTRANSFERASE < 6 U/L (12-78)
[2019-05-26 09:40] LABS: GLUCOSE 46 mg/dL (74-106)
--- NOTE | 2019-05-26 09:40 | NUR ---
MS RN NOTES RECEIVED CALL FROM JULIO FOR WBC OF 48.1, GLUCOSE OF 46 AND MAG LEVEL OF 1.1. MARY MANNING AT BEDSIDE REVIEWING ALL LABS AND WITH ORDERS, CARRIED OUT.
[2019-05-26 09:41] LABS: ALBUMIN 1.4 g/dL (3.4-5.0); MAGNESIUM 1.1 mg/dL (1.8-2.4)
--- NOTE | 2019-05-26 09:42 | NUR ---
MS RN NOTES FINGERSTICK CHECK WITH BS RESULT OF 56MG/DL, MARY AT BESIDE MADE AWARE WITH ORDER FOR D50% INJECTION.
--- NOTE | 2019-05-26 09:51 | NUR ---
MS RN NOTES MARY MANNING CALLED AND SPOKE TO JEVON AJ REGARDING PATIENT'S CURRENT CONDITION AND CODE STATUS, AJ WANTS PATIENT TO BE FULL CODE WITH ORDER FOR TRANSFER TO ICU.
[2019-05-26] MEDS ORDERED: FEE PK DOSING 1 MIN EA MC ONE ×2 (09:53→16:02)
[2019-05-26] MEDS ORDERED: IV NS 0.9% 1,000 ML IV PRN (10:00)
[2019-05-26] MEDS ORDERED: DEXTROSE 50%-WATER 50 ML DISP.SYRIN IVP ONE (10:00)
--- NOTE | 2019-05-26 10:02 | NUR ---
MS RN NOTES BS RECHECK 120MG/DL
[2019-05-26] MEDS ORDERED: IV D5/ 0.9% NACL 1,000 ML IV PRN (10:35)
[2019-05-26] MEDS ORDERED: VANCOMYCIN 1 GM in IV D5W 250 ML IV SCH (11:00)
[2019-05-26] MEDS ORDERED: Magnesium 1GM/D5W 100ML PREMIX 1 G in PREMIX 1 EA IV SCH (11:00)
--- NOTE | 2019-05-26 11:00 | NUR ---
MS RN NOTES PATIENT TRANSFERRED TO ICU ROOM 259 PER ACLS PROTOCOL AND REPORT GIVEN TO JOELLEN CARLTON.
--- NOTE | 2019-05-26 11:15 | NUR ---
MS RN NOTES GAVE RUDDY ATB TO FELI CARLTON.
[2019-05-26] MEDS: Magnesium 1GM/D5W 100ML PREMIX 100 ML IV SCH ×2 (11:45→12:38)
[2019-05-26] MEDS: MEROPENEM 500 MG in IV NS 0.9% 50 ML IV SCH ×2 (11:45→23:01)
--- NOTE | 2019-05-26 12:00 | NUR ---
RN NOTE Received patient from MS 2 for episode of low BP, now >90's. Will monitor closely. SERGEY midline intact. 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 Left neph tube intact, noted with nino colored urine drained to BSD. ST 110's on the monitor. Lethargic. Able to open eyes but does not follow much commands at this time.
[2019-05-26 12:48] LABS: BAND % (MANUAL) 6 % (0.0-5.0); LYMPHOCYTES % (MANUAL) 1 % (16-48); MONOCYTES % (MANUAL) 3 % (0-11.0); NEUTROPHILS % (MANUAL) 90 (42-76)
--- NOTE | 2019-05-26 13:05 | NUR ---
RN NOTE S/E by Dr. Marin MD spoke with Nicole and clarified code status to DNR/DNI(okay for pressors), CN aware. VSS at this time. SBP >90. Called [facility] to inform Kristine MANNING, paged.
[2019-05-26] MEDS ORDERED: DOSE PER PHARMACY MICAFUNGIN 1 EA XX PRN (16:00)
[2019-05-26] MEDS: APIXABAN 2.5 MG TABLET PO SCH (17:00)
[2019-05-26] MEDS ORDERED: PHENYLEPHRINE 80 MG in IV D5W 250 ML IV PRN (17:00)
[2019-05-26] MEDS ORDERED: MICAFUNGIN SODIUM 100 MG in IV NS 0.9% 100 ML IV SCH (17:00)
[2019-05-26] MEDS ORDERED: GENTAMICIN 80 MG in IV D5W 50 ML IV SCH (18:00)
--- NOTE | 2019-05-26 18:06 | NUR ---
RN NOTE No any significant changes. Not on pressors. SBP borderline. Will continue to monitor. SERGEY PICC intact. Harrison on stand by.
--- NOTE | 2019-05-26 19:45 | NUR ---
ICU/WINDOW TRIMMER RECEIVED REPORT FROM DAY NURSE. SEE NURSING FLOWSHEET FOR ASSESSMENT. THERE ARE MANY SKIN ISSUES WHICH ARE ADDRESSED ON THE FLOWSHEET ALONG WITH THE INTERVENTIONS. PT IS LETHARGIC RESPONDS TO BEING TURNED AND REPOSITIONED. PT IS ON A SIMPLE MASK, TOLERATING THIS WITH SATURATION AT 100%. NO ACUTE DISTRESS SEEN AT THIS TIME, PT WAS TURNED AND REPOSITIONED FOR COMFORT AND CARE WILL CONTINUE TO MONITOR THIS PT.
[2019-05-26] MEDS: PHENYLEPHRINE 80 MG in IV D5W 250 ML IV PRN (20:07)
--- NOTE | 2019-05-26 20:24 | NUR ---
ICU/BOOTH USHER PT'S BLOOD PRESSURE HAS BEEN IN THE 80'S FOR THE PAST 45 MINUTES. NOTIFIED LANDING WORKER NURSE HANH, WHO THEN HANG UP LEDA WHICH WAS PRN FOR THIS PT. WILL CONTINUE TO MONITOR THIS PT AND HER BP.
--- NOTE | 2019-05-26 20:52 | NUR ---
ICU/PLATFORM LOADER PT'S 1999 TEMP WAS 101.5 AXILLARY. PT APPEARS TO BE LETHARGIC, NOTIFIED BURIAL NEEDS SALESPERSON MD TO HAVE ORAL TYLENOL CHANGED OVER TO RECTAL SUPPOSITORY. WILL MONITOR THIS PT AND HER TEMP CLOSELY.
[2019-05-26] MEDS ORDERED: ACETAMINOPHEN 650 MG/SUPP.RECT RC PRN (21:00)
[2019-05-26] MEDS: LINEZOLID RTU BAG 600 MG in PREMIX 1 EA IV SCH (21:17)
--- NOTE | 2019-05-26 21:30 | NUR ---
ICU/REPAIRER HELPER TYLENOL SUPPOSITORY GIVEN FOR TEMP 101.5. PT WAS TURNED AND REPOSITIONED FOR COMFORT AND CARE. WILL CONTINUE TO MONITOR THIS PT AND TEMP.
[2019-05-26] MEDS ORDERED: TAMSULOSIN 0.4 MG CAP.SR.24H PO SCH (22:00)
--- NOTE | 2019-05-26 22:10 | NUR ---
ICU/BATTERY TESTER FIELD PT HAS 2200 DOSE OF FLOWMAX WHICH WAS HELD DUE TO THE FACT PT IS LETHARGIC AND COULD POSSIBLE ASPIRATE ON THE MEDICATION. WILL CONTINUE TO MONITOR THIS PT.
--- NOTE | 2019-05-26 22:30 | NUR ---
ICU/LOADING RACK SUPERVISOR LEDA WAS INCREASED TO 150MCG FROM 100 MCG DUE TO THE BLOOD PRESSURE BEING LOW IN THE 80'S FOR A FEW CYCLES BY CHARGE NURSE HANH. WILL CONTINUE TO MONITOR THIS PT AND HER BLOOD PRESSURE.
[2019-05-27] VITALS (56 sets, daily range): BP systolic 56–242; BP diastolic 29–140
[2019-05-27] MEDS: ALBUTEROL FS 2.5 MG/3 ML VIAL.NEB IH SCH ×2 (01:42→07:44)
--- NOTE | 2019-05-27 02:30 | NUR ---
ICU/SAMPLE PREP TECHNICIAN LEDA WAS DECREASED DOWN TO 100MCG FROM 150 BY CHARGE NURSE. PT'S BLOOD PRESSURE WAS 120'S FOR A FEW CYCLES. PT WAS TURNED AND REPOSITIONED FOR COMFORT AND CARE. WILL CONTINUE TO MONITOR THIS PT. AND HER BP.
--- NOTE | 2019-05-27 04:00 | NUR ---
ICU/JOB SITE SUPERVISOR AM LABS WERE DRAWN, WAIT FOR ANY ABNORMAL RESULTS.
[2019-05-27 04:51] LABS: BASOPHILS # (AUTO) 0.2 /CMM (0.0-0.2); BASOPHILS % (AUTO) 0.4 % (0.0-2.0); HEMATOCRIT 30 % (33-45); HEMOGLOBIN 9.2 g/dL (11.5-14.8); LYMPHOCYTES # (AUTO) 0.8 /CMM (0.8-4.8); LYMPHOCYTES % (AUTO) 2.2 % (20.0-44.0); MEAN CORPUSCULAR HGB CONC 30 g/dl (31.0-36.0); MEAN CORPUSCULAR VOLUME 85 fL (82-100); MONOCYTES # (AUTO) 1.4 /CMM (0.1-1.30); MONOCYTES % (AUTO) 3.8 % (2.0-12.0); NEUTROPHILS # (AUTO) 34.7 /CMM (1.8-8.9); NEUTROPHILS % (AUTO) 93.6 % (43.0-81.0); PLATELET COUNT (AUTO) 299 /CMM (150-450); RED BLOOD CELL COUNT(AUTO) 3.57 MIL/uL (4.0-5.2)
[2019-05-27 04:56] LABS: CALCIUM, SERUM 8.5 mg/dL (8.5-10.1); CARBON DIOXIDE 19 mmol/L (21-32); CHLORIDE 109 mmol/L (98-107); GLUCOSE 176 mg/dL (74-106); POTASSIUM 4.7 mmol/L (3.5-5.1); SODIUM SERUM 139 mmol/L (136-145); UREA NITROGEN, BLOOD 46 mg/dL (7-18)
[2019-05-27 05:00] LABS: WHITE BLOOD COUNT (AUTO) 37.1 K/uL (4.3-11.0)
[2019-05-27] MEDS: PHENYLEPHRINE 80 MG in IV D5W 250 ML IV PRN (05:02)
[2019-05-27 05:14] LABS: BAND % (MANUAL) 10 % (0.0-5.0); LYMPHOCYTES % (MANUAL) 2 % (16-48); MONOCYTES % (MANUAL) 4 % (0-11.0); NEUTROPHILS % (MANUAL) 84 (42-76)
--- NOTE | 2019-05-27 05:30 | NUR ---
ICU/RESIDENT CARE DIRECTOR CRITICAL LAB OF WBC 37.1 WAS CALLED YESTERDAYS WAS 48.1, MOVING IN EXPECTED TREND.
--- NOTE | 2019-05-27 05:57 | NUR ---
ICU/GAMEMASTER CRITICAL LAB VALUE OF PROCALCITONIN IS 40.28, YESTERDAY WAS 29. MD WAS CALLED. MOVING IN PROJECTED TREND.
[2019-05-27] MEDS: LEVOTHYROXINE SODIUM 25 MCG TABLET PO SCH (07:30)
[2019-05-27] MEDS: PANTOPRAZOLE 40 MG TABLET.DR PO SCH (07:30)
[2019-05-27] MEDS: SEVELAMER CARBONATE 800 MG TABLET PO SCH ×2 (08:00→12:42)
[2019-05-27] MEDS: METOPROLOL TARTRATE 25 MG TABLET PO SCH (09:00)
[2019-05-27] MEDS: DILTIAZEM HCL CD 120 MG PO SCH (09:00)
[2019-05-27] MEDS: APIXABAN 2.5 MG TABLET PO SCH (09:00)
[2019-05-27] MEDS: MULTIVITAMINS,THERAGRAN 1 UDTAB TABLET PO SCH (09:00)
[2019-05-27] MEDS: DOCUSATE SODIUM 100 MG CAPSULE PO SCH (09:00)
[2019-05-27] MEDS: LINEZOLID RTU BAG 600 MG in PREMIX 1 EA IV SCH (09:36)
[2019-05-27] MEDS: HYDROCORTISONE SOD SUCCINATE 100 MG/2 ML VIAL IV SCH ×2 (09:36→12:42)
[2019-05-27] MEDS: MEROPENEM 500 MG in IV NS 0.9% 50 ML IV SCH (09:36)
[2019-05-27] MEDS ORDERED: Sodium Bicarbonate 100 MEQ in IV 1/2NS 1000 ML 1,000 ML IV PRN (12:00)
[2019-05-27] MEDS ORDERED: LORAZEPAM INJ 2 MG/ML VIAL IV PRN (13:30)
--- NOTE | 2019-05-27 16:12 | NUR ---
patient transferred from ICU to [facility] at 1600, morphine currently infusing as ordered
--- NOTE | 2019-05-27 18:44 | NUR ---
MS/RN NOTES RECEIVED REPORT FROM ICU NURSE. PT IS LETHARGIC RESPONDS TO BEING TURNED AND REPOSITION. PATIENT ON ROOM AIR WITH SATURATION AT 90%. NO ACUTE DISTRESS SEEN AT THIS TIME, PT WAS ON MORPHINE DRIP 4MG/HR ON AND INFUSING WELL. BED IN LOWEST POSITION. CALL LIGHT WITHIN REACH. WILL ENDORSED TO MEDICAL ADMINISTRATIVE FOR BOOGIE.
--- NOTE | 2019-05-27 19:46 | NUR ---
WIND ENERGY ENGINEER: RECEIVED REPORT FROM ALEENA CUENCA AT 1930. PT RECEIVED ON COMFORT MEASURES ONLY, PT NON VERBAL LETHARGIC, RESPIRATIONS EVEN AND UNLABORED, ON 2L OXYGEN FOR COMOFRT. NO FACIAL GRIMACE NOTED, APPEARS CALM AND COMFORTABLE, PT HAS SERGEY PICC LINE, TLC, RECEIVING MORPHINE DRIP AT 4MG/HR, PT ON ISOLATION ESBL URINE. NEPHROSTOMY TUBE NOTED ON LEFT FLANK AREA. BLE NOTED TO BE SWOLLEN, OFFLOADED ON PILLOWS. ON CONTINUOUS PULSE OX MONITORING. SAFETY PRECAUTIONS FOR FALL INITIATED, CALL LIGHT IN REACH, WILL CONTINUE MONITORING PT.
--- NOTE | 2019-05-27 22:00 | NUR ---
rn notes: turn and reposition pt at this time, kept ble offloaded on pillows. still connected to spo2 monitoring, hr 100 spo2 95%. appears calm and comfortable, no facial grimace noted.
--- NOTE | 2019-05-28 07:00 | NUR ---
END OF SHIFT REPORT: PT REMAINS ON MORPHINE DRIP 4MG/HR, TOTAL VOLUME INFUSED IS 45.1 ML. RR 5, SPO2 94% ON 1L OXYGEN FOR COMFORT, APPEARS CALM AND COMFORTABLE. IV ACCESS/PICC LINE REMAINS PATENT AND FLUSHING WELL. ON COMFORT MEASURES. BLE KEPT OFFLOADED ON PILLOWS. PPE UTILIZED FOR ESBL CRE URINE. SAFETY PRECAUTIONS FOR FALL INITIATED, CALL LIGHT IN REACH, WILL ENDORSE TO DAY RN FOR CONTINUITY OF CARE.
--- NOTE | 2019-05-28 07:36 | NUR ---
MS/RN OPENING NOTES RECEIVED PATIENT ON BED WITH [employer] ENGINEER PUMP OF MORPHINE DRIP 4MG/HR, SPO2 98% ON 1L OXYGEN FOR COMFORT, APPEARS CALM AND COMFORTABLE. IV ACCESS/PICC LINE REMAINS PATENT AND FLUSHING WELL. ON COMFORT MEASURES. BLE KEPT OFFLOADED ON PILLOWS. PPE UTILIZED FOR ESBL CRE URINE. SAFETY PRECAUTIONS FOR FALL INITIATED, CALL LIGHT IN REACH,
[2019-05-28 08:00] VITALS: BP 138/97
[2019-05-28] MEDS ORDERED: KEY,NONCONTROL,TO KEEP IN PYXI 1 EA MC ONE ×2 (09:45→19:37)
--- NOTE | 2019-05-28 19:27 | NUR ---
MS/RN NOTES PATIENT AT 181, , [employer] [employer], DEVYN KILGORE(DAUGHTER), [employer](NEXT OF KIN) WAS AWARE. BODY WILL BE MICA SPLITTER 1 TO H2 HOUR. WILL ENDORSED TO REFRIGERATING OILER FOR BODY MICA SPLITTER.
--- NOTE | 2019-05-28 20:10 | NUR ---
MS RN NOTES BODY PICKED-UP BY [facility] WITH 2 MALE TRANSPORT, DAUGHTER DEVYN ON BEDSIDE. RECORD OF SIGNED AND WITNESSED. COPY GIVEN TO DAUGHTER. BODY RELEASED VIA GURNEY ACCOMPANIED BY SECURITY.
== END 2019-05-28 18:15 | disposition expired | DRG 871 ==
LOC: ER 15:36 → MEDSG2 20:29 → ICU 05-26 11:08 → MED 05-27 16:04
PROVIDERS: ADMIT Internal Medicine; ATTEND Nurse Practitioner Acute Care
PROC: 05HA33Z Insertion of Infusion Device into Left Brachial Vein, Percutaneous Approach (ICD-10-PCS; principal; 2019-05-26)
PROC: 02HV33Z Insertion of Infusion Device into Superior Vena Cava, Percutaneous Approach (ICD-10-PCS; 2019-05-27)
PROC: B548ZZA Ultrasonography of Superior Vena Cava, Guidance (ICD-10-PCS; 2019-05-27)
DX: A41.9 Sepsis, unspecified organism (principal); L89.153 Pressure ulcer of sacral region, stage 3; L89.103 Pressure ulcer of unspecified part of back, stage 3; N18.6 End stage renal disease; N17.0 Acute kidney failure with tubular necrosis; G92 Toxic encephalopathy; R65.21 Severe sepsis with septic shock; J69.0 Pneumonitis due to inhalation of food and vomit; J96.00 Acute respiratory failure, unspecified whether with hypoxia or hypercapnia; E43 Unspecified severe protein-calorie malnutrition; I12.0 Hypertensive chronic kidney disease with stage 5 chronic kidney disease or end stage renal disease; D68.59 Other primary thrombophilia; J98.11 Atelectasis; N13.30 Unspecified hydronephrosis; N39.0 Urinary tract infection, site not specified; Z16.12 Extended spectrum beta lactamase (ESBL) resistance; Z66 Do not resuscitate; Z51.5 Encounter for palliative care; T83.022A Displacement of nephrostomy catheter, initial encounter; Z99.2 Dependence on renal dialysis; Z88.0 Allergy status to penicillin; Z87.440 Personal history of urinary (tract) infections; Z86.718 Personal history of other venous thrombosis and embolism; Z86.19 Personal history of other infectious and parasitic diseases; Z86.14 Personal history of Methicillin resistant Staphylococcus aureus infection; Z79.899 Other long term (current) drug therapy; Z91.018 Allergy to other foods; Z79.51 Long term (current) use of inhaled steroids; Y84.9 Medical procedure, unspecified as the cause of abnormal reaction of the patient, or of later complication, without mention of misadventure at the time of the procedure; Y92.129 Unspecified place in nursing home as the place of occurrence of the external cause; D64.9 Anemia, unspecified; E03.9 Hypothyroidism, unspecified; F03.90 Unspecified dementia, unspecified severity, without behavioral disturbance, psychotic disturbance, mood disturbance, and anxiety; Z74.09 Other reduced mobility; R91.1 Solitary pulmonary nodule; Z79.01 Long term (current) use of anticoagulants; K76.9 Liver disease, unspecified; B96.1 Klebsiella pneumoniae [K. pneumoniae] as the cause of diseases classified elsewhere; W06.XXXA Fall from bed, initial encounter; D89.9 Disorder involving the immune mechanism, unspecified; C67.9 Malignant neoplasm of bladder, unspecified
CPT/HCPCS: 31720; 36415; 36569; 36600; 71045-TC; 76770-TC; 80048-TC; 80053-TC; 81000-TC; 82533; 82803-TC; 82962-TC; 83605-TC; 83735-TC; 84100-TC; 85025-TC; 85730-TC; 86850-TC; 87040-TC; 87081-TC; 87086-TC; 87186-TC; 94799-TC; A4216; C1751; G0378; J0696; J1580; J1720; J2020; J2185; J2248; J2270; J2274; J2370; J3370; J3475; J3490; J7030; J7042; J7050; J7060